=== PATIENT | female | born 1960 | race Caucasian/White ===

== ENCOUNTER 2018-04-26 15:04 | Observation (INO) | payer MEDICARE, MEDICAID ==
[2018-04-26 16:10] LABS: #Eosinphils 0.1 thou/uL (0.0-0.7); #Lymphocytes 2.7 thou/uL (1.20-3.40); #Monocytes 0.5 thou/uL (0.11-0.59); #Neutrophils 4.5 thou/uL (1.40-6.50); %Basophils 0.4 % (0.0-1.0); %Eosinophils 1.2 % (0.0-10.0); %Lymphocytes 34.1 % (21.0-51.0); %Monocytes 6.7 % (0.0-10.0); %Neutrophils 57.6 % (42.0-75.0); Hemoglobin 10.5 g/dL (12.0-16.0); Mean Corpuscular HGB CONC 30.9 g/dL (32.0-36.0); Mean Corpuscular Hemoglobin 24.4 pg (27.0-31.0); Mean Corpuscular Volume 78.8 fL (78.0-98.0); Mean Platelet Volume 6.6 fL (7.4-10.4); Platelet Count 431 thou/uL (130-400); RBC Distribution Width 16.3 % (11.5-14.5); Red Blood Cell (RBC) Count 4.32 mill/uL (4.20-5.40); White Blood Cell (WBC) Count 7.9 thou/uL (4.8-10.8)
--- NOTE | 2018-04-26 16:20 | RAD ---
CHEST 1 VIEW: Date: 04/26/18 INDICATION: Chest pain. COMPARISON: None. FINDINGS: Left costophrenic angle is excluded. No definite consolidation is evident. There is mild cardiomegaly . There is a dual lead pacemaker in place. Pulmonary vasculature is within normal limits. No acute os seous abnormality is evident. IMPRESSION: No definite acute cardiopulmonary abnormality. Mild cardiomegaly. POS: [facility]
[2018-04-26 16:33] LABS: ALT (SGPT) 16 U/L (8-55); AST (SGOT) 12 U/L (5-34); Albumin 3.9 g/dL (3.5-5.0); Alkaline Phosphatase 138 U/L (40-150); Anion Gap 15 mmol/L (10-20); BUN (Urea Nitrogen) 17 mg/dL (9.8-20.1); Bilirubin, Total 0.2 mg/dL (0.2-1.2); Calc. Creatinine Clearance 0 mL/min (70-130); Calcium 9.4 mg/dL (7.8-10.44); Carbon Dioxide 23 mmol/L (22-29); Chloride 102 mmol/L (98-107); Estimated GFR-MDRD 48; Globulin 2.9 g/dL (2.4-3.5); Glucose 93 mg/dL (70-105); Lipase 45 U/L (8-78); Potassium 3.2 mmol/L (3.5-5.1); Protein, Total 6.8 g/dL (6.0-8.3); Sodium 137 mmol/L (136-145)
[2018-04-26] MEDS ORDERED: Potassium Chloride 20 MEQ TAB ONE (16:50)
--- NOTE | 2018-04-26 16:53 | PDOC.FPRHP ---
- History of Present Illness Chief Complaint: chest pain History of Present Illness: 57 yo F with hx of cardiac stent, pacemaker, htn, and hld comes in for chest pain. Patient comes in for chest pain which started 0230 today. Pain is in the center of her chest, described as crushing and rated at 6/10. No radiation but has had palpitations. Had nitro, this did not help make it any better. Made worse with movement. No pain with deep breath. States she has had a chronic cough for 6 months 2/2 CHF. States she had a stress test in October but does not know the results. Stent was placed October 2017 at [facility] in [place], [place]. ED Course: Potassium 40 mEQ Asa 81mg - Allergies/Adverse Reactions Allergies Allergy/AdvReac Type Severity Reaction Status Date / Time Penicillins Allergy Verified 04/26/18 17:05 povidone-iodine Allergy Verified 04/26/18 17:05 [From Betadine] soap [From Betadine] Allergy Verified 04/26/18 17:05 Sulfa (Sulfonamide Allergy Verified 04/26/18 17:05 Antibiotics) tetracycline Allergy Verified 04/26/18 17:05 - Home Medications Medication Instructions Recorded Confirmed Type Alendronate Sodium [Fosamax] 70 mg PO Q7D 04/26/18 04/26/18 History Amiodarone [Cordarone] 200 mg PO DAILY 04/26/18 04/26/18 History Amlodipine [Norvasc] 5 mg PO DAILY 04/26/18 04/26/18 History Aspirin [Aspir-Low] 81 mg PO DAILY 04/26/18 04/26/18 History Atorvastatin Calcium 40 mg PO HS 04/26/18 04/26/18 History Clopidogrel Bisulfate [Clopidogrel] 75 mg PO DAILY 04/26/18 04/26/18 History Diltiazem HCl [Diltiazem 24Hr ER] 360 mg PO DAILY 04/26/18 04/26/18 History Furosemide 40 mg PO DAILY 04/26/18 04/26/18 History Levothyroxine Sodium [Levoxyl] 100 mcg PO DAILY 04/26/18 04/26/18 History Lisinopril 40 mg PO DAILY 04/26/18 04/26/18 History Metoclopramide HCl [Reglan] 1 tab PO HS 04/26/18 04/26/18 History Metoprolol Succinate [Toprol Xl] 200 mg PO DAILY 04/26/18 04/26/18 History Omeprazole 40 mg PO DAILY 04/26/18 04/26/18 History Temazepam 30 mg PO HS PRN 04/26/18 04/26/18 History buPROPion [Wellbutrin] 75 mg PO BID 04/26/18 04/26/18 History clonazePAM [Clonazepam] 1 mg PO BID PRN 04/26/18 04/26/18 History - History PMHx: CHF, hypothyroidism, HLD, HTN, intermittent a fib PSHx: stent x1, pacemaker, rt ankle reconstruction, right ureter reconstruction , hyst, appendectomy FHx: DM, HTN Social: 10 pack-year smoking hx, quit smoking 2 years ago at time of pacemaker, alcohol, or drugs - Review of Systems General: denies: fever/chills, night sweats, fatigue Eyes: denies: vision changes ENT: denies: nasal congestion, rhinorrhea Respiratory: denies: cough, congestion, shortness of breath Cardiovascular: reports: chest pain, palpitation, orthopnea Gastrointestinal: reports: nausea. denies: vomiting, diarrhea, abdominal pain, GI bleeding Genitourinary: denies: dysuria, polyuria Skin: denies: rashes, itching Musculoskeletal: denies: pain, tenderness, arthritis/arthralgias Neurological: denies: numbness, weakness - Vital signs BP: 100/71 HR: 66 RR: 18 Tmax: 98.5 Pox: 97% on RA Wt: 81kg - Physical Exam Constitutional: NAD, awake, alert and oriented HEENT: normocephalic and atraumatic, PERRLA Neck: supple Heart: RRR, normal S1/S2 Lungs: CTAB, no respiratory distress, good air movement, no wheezing Abdomen: soft, non-tender, bowel sounds present Musculoskeletal: normal structure, ROM grossly normal Neurological: no focal deficit, normal sensation Skin: no rash/lesions, capillary refill <2 seconds FMR H&P: Results - Labs Result Diagrams: 04/26/18 15:59 04/26/18 15:59 Lab results: WBC 7.9 thou/uL (4.8-10.8) 04/26/18 15:59 Hgb 10.5 g/dL (12.0-16.0) L 04/26/18 15:59 Hct 34.1 % (36.0-47.0) L 04/26/18 15:59 MCV 78.8 fL (78.0-98.0) 04/26/18 15:59 Plt Count 431 thou/uL (130-400) H 04/26/18 15:59 Neutrophils % 57.6 % (42.0-75.0) 04/26/18 15:59 Sodium 137 mmol/L (136-145) 04/26/18 15:59 Potassium 3.2 mmol/L (3.5-5.1) L 04/26/18 15:59 Chloride 102 mmol/L (98-107) 04/26/18 15:59 Carbon Dioxide 23 mmol/L (22-29) 04/26/18 15:59 BUN 17 mg/dL (9.8-20.1) 04/26/18 15:59 Creatinine 1.17 mg/dL (0.6-1.1) H 04/26/18 15:59 Glucose 93 mg/dL (70-105) 04/26/18 15:59 Calcium 9.4 mg/dL (7.8-10.44) 04/26/18 15:59 Total Bilirubin 0.2 mg/dL (0.2-1.2) 04/26/18 15:59 AST 12 U/L (5-34) 04/26/18 15:59 ALT 16 U/L (8-55) 04/26/18 15:59 Alkaline Phosphatase 138 U/L (40-150) 04/26/18 15:59 B-Natriuretic Peptide 23.4 pg/mL (0-100) 04/26/18 15:59 Serum Total Protein 6.8 g/dL (6.0-8.3) 04/26/18 15:59 Albumin 3.9 g/dL (3.5-5.0) 04/26/18 15:59 Lipase 45 U/L (8-78) 04/26/18 15:59 FMR H&P: A/P - Problem List (1) Chest pain Current Visit: Yes Status: Acute Code(s): R07.9 - CHEST PAIN, UNSPECIFIED (2) CAD (coronary artery disease) Current Visit: Yes Status: Acute Code(s): I25.10 - ATHSCL HEART DISEASE OF [place] CORONARY ARTERY W/O ANG PCTRS (3) Stented coronary artery Current Visit: Yes Status: Acute (4) Atrial fibrillation Current Visit: Yes Status: Acute Code(s): I48.91 - UNSPECIFIED ATRIAL FIBRILLATION (5) Pacemaker Current Visit: Yes Status: Acute Code(s): Z95.0 - PRESENCE OF CARDIAC PACEMAKER (6) CHF (congestive heart failure) Current Visit: Yes Status: Acute Code(s): I50.9 - HEART FAILURE, UNSPECIFIED (7) Hypothyroid Current Visit: Yes Status: Acute Code(s): E03.9 - HYPOTHYROIDISM, UNSPECIFIED (8) Hypokalemia Current Visit: Yes Status: Acute Code(s): E87.6 - HYPOKALEMIA (9) HTN (hypertension) Current Visit: Yes Status: Acute Code(s): I10 - ESSENTIAL (PRIMARY) HYPERTENSION (10) HLD (hyperlipidemia) Current Visit: Yes Status: Acute Code(s): E78.5 - HYPERLIPIDEMIA, UNSPECIFIED (11) Bipolar 1 disorder Current Visit: Yes Status: Acute Code(s): F31.9 - BIPOLAR DISORDER, UNSPECIFIED - Plan 57 yo F with cardiac history presents with chest pain and is admitted for observation. Chest pain rule out - Heart score 5 - trop neg x1, will continue to trend - will request records in am and consider cardiology consult at that time - EKG from ED not best quality but did show rate controlled a fib, rate 64, t wave inversion V1-2 Hypokalemia - 3.2, received 40 meq in ED - recheck BMP in am Headache - continue home metoclopramide - tylenol prn EJ vs CKD3 - Cr 1.17, GFR 40s - unknown baseline - monitor on am bmp Anemia - Hgb 10.5, MCV 78 - no history of anemia CAD with x1 stent - on statin, clopidegrel, ASA at home Atrial fibrillation with pacemaker - currently rate controlled - continue amiodarone CHF - unknown EF - on lasix, BB, Aurelio at home - consult HF team, will need to establish with local community health coordinator HTN - reports to be on amlodipine and diltiazem, will hold for now - BP in ED 100/72 GERD - cont home omeprazole Osteoporosis - takes alendronate weekly at home Bipolar - home buproprion with benzo prn Hypothyroid - on synthroid - check TSH Diet: NPO @ midnight Ppx: lovenox Dispo: admit to telemetry for observation FMR H&P: Upper Level - Pertinent history 57 yo F coming in for Chest pain which started at 0230 this AM and has been constant. Significant history including cardiac stent in October, afib, chf, HTN, HLD, and 10 pack-year smoking hx. Her pain is made worse with movement. States she get sob when laying down. Denies cough, no sputum. Pain rated at 6/10, described as crushing, non-radiating. Pain is made worse with movement. Also complains of headache after getting nitro. - Pertinent findings General: NAD, alert and oriented x3 HEENT: PERRLA, EOMI, normal sclera, oropharynx without erythema or exudate, Neck: Supple. Full ROM. Heart/Cardiovascular System: No r/m/g. RRR. Cap refill < 3 seconds, good pulses in all extremities, no edema at lower extremities. Tender to palpation of chest Lungs/Respiratory System: clear to auscultation bilaterally. No increased work of breathing. Room air. No crackles Abdomen/Gastro-Intestinal System: non-tender, normal bowel sounds, no masses, no organomegaly Extremeties: Warm extremities. No cyanosis or edema. Neuro: No gross deficits appreciated. CN 2-12 grossly intact Psychiatry: Awake, Alert and cooperative with exam Skin/ Integumentory: No lesions, rashes, or ulcers Musculoskeletal: Full ROM, Strength 5/5 in all 4 extremities - Plan Date/Time: 04/26/18 0863 IAdama, have evaluated this patient and agree with findings/plan as outlined by general internist and physician leader resident. Pertinent changes/additions are listed here. # chest pain rule out, suspect chest wall pain - HEART: 5 - trop neg x1, will trend - T-wave inversions V1, V2 - Consider cards consult - consider stress test in AM 2/2 high risk history, mult co-morbidities - tender to palpation of chest wall - nitro PRN - asa, statin # Atrial Fibrilation, rate controlled - home amiodarone # CHF present on admission, not in exacerbation - will request records - BNP 24 - HF clinic referral - will need to establish with Cardiology outpt. # Hypokalemia - K+ in ED - re-check in AM # Headache - home reglan # HTN - hold for now # HLD - home meds # Hypothyroidsim - home meds Primary Dianetic Counselor: [facility] in [place], [place] Fluids: tko Diet: regular, npo at midnight Code: full PCP: [facility] DVT PPx: SCDs, lovenox Addendum - Attending - Attending Attestation Date/Time: 04/26/187 I personally evaluated the patient and discussed the management with Dr. Craig I agree with the History, Examination, Assessment and Plan documented above with any addition or exceptions noted below- 57 yo female with h/o HTN, HLD, CAD, CHF (unknown type), hypothyroidism who presented c/o substernal chest radiating to left shoulder that began today. Had associated SOB, nausea, and diaphoresis. Denies any vomiting or orthopnea. States the pain is similar to when she was hospitalized in October at [facility] and had stent placed. PMH /PSH/Meds/All reviewed and agree with resident's documentation. Afebrile BP 87/ 54 P62 RR18 94%RA Exam repeated by me and agree with resident's findings. Labs: WBC=7.9, H/H= 10.5/34.1, Plt = 431, Na-137, K=3.2, Co=448, CO2=23, BUN/Cr= 17/1.17, Gluc=93, GFR=48, AST/ALT=12/16, BNP=23.4, trop I<0.010 x 2, CXR- negative. A/P: 1) Chest pain - place in obs. Monitor serial cardiac enzymes. Will plan to obtain records from stent placement in October. Consider cards consult. 2) HTN- BP low currently but pt asymptomatic- will hold meds for SBP< 903) Hypothyroidism- will check TSH and continue home meds.
[2018-04-26] MEDS ORDERED: Aspirin 325 MG TAB ONE (18:05)
[2018-04-26] MEDS ORDERED: Acetaminophen 325 MG TAB PO PRN (19:49)
[2018-04-26] MEDS ORDERED: Ondansetron PF 4 MG/2 ML Vial IVP PRN (19:49)
[2018-04-26] MEDS ORDERED: Nitroglycerin 0.4 MG TAB (25 Tab Bottle) PO PRN (19:49)
[2018-04-26] MEDS ORDERED: Ondansetron ODT 4 MG TAB PO PRN (19:49)
[2018-04-26 20:00] LABS: Troponin I Less than 0.010 ng/mL (< 0.028)
[2018-04-26] MEDS: Metoclopramide 10 MG/10 ML UDCUP PO SCH (20:41)
[2018-04-26] MEDS ORDERED: clonazePAM 1 MG TAB PO PRN (22:45)
[2018-04-26] MEDS ORDERED: Alendronate Sodium 70 mg Tablet PO SCH (22:45)
[2018-04-26] MEDS ORDERED: Temazepam 15 MG CAP PO PRN (22:45)
[2018-04-26 23:13] LABS: Troponin I Less than 0.010 ng/mL (< 0.028)
[2018-04-27] MEDS ORDERED: Sodium Chloride 0.9% 500 ML IV SCH (04:45)
[2018-04-27 05:37] LABS: Anion Gap 12 mmol/L (10-20); BUN (Urea Nitrogen) 21 mg/dL (9.8-20.1); Calc. Creatinine Clearance 82 mL/min (70-130); Calcium 9.1 mg/dL (7.8-10.44); Carbon Dioxide 27 mmol/L (22-29); Chloride 106 mmol/L (98-107); Estimated GFR-MDRD 51; Glucose 98 mg/dL (70-105); Potassium 3.7 mmol/L (3.5-5.1); Sodium 141 mmol/L (136-145)
[2018-04-27] MEDS ORDERED: Levothyroxine Sodium 100 MCG TAB PO SCH (06:00)
--- NOTE | 2018-04-27 06:53 | PDOC.FM ---
- Subjective Subjective: Ms. Kelly is resting comfortably in bed, she denies continued chest pain or shortness of breath. she does report that her chest pain was similar to the [place] she had in the past. - Objective Vital Signs & Weight: Vital Signs (12 hours) Temp Pulse Resp BP Pulse Ox 04/27/18 05:22 67 18 82/46 L 04/27/18 04:20 63 18 70/40 L 94 L 04/26/18 23:20 98.7 F 65 14 83/47 L 92 L 04/26/18 19:49 94 L 04/26/18 19:41 98.4 F 62 18 87/54 L 94 L Weight Weight 90.628 kg I&O: 04/25/18 04/26/18 04/27/18 06:59 06:59 06:59 Intake Total 500 Balance 500 Result Diagrams: 04/26/18 15:59 04/27/18 05:02 Phys Exam - Physical Examination Constitutional: NAD HEENT: moist MMs Respiratory: clear to auscultation bilateral Cardiovascular: RRR, no significant murmur, no rub Gastrointestinal: soft, non-tender Musculoskeletal: no edema, pulses present Neurological: non-focal Lymphatic: no nodes Psychiatric: normal affect Skin: no rash Dx/Plan (1) Chest pain Code(s): R07.9 - CHEST PAIN, UNSPECIFIED Status: Acute (2) Atrial fibrillation Code(s): I48.91 - UNSPECIFIED ATRIAL FIBRILLATION Status: Acute (3) Bipolar 1 disorder Code(s): F31.9 - BIPOLAR DISORDER, UNSPECIFIED Status: Acute (4) CAD (coronary artery disease) Code(s): I25.10 - ATHSCL HEART DISEASE OF [place] CORONARY ARTERY W/O ANG PCTRS Status: Acute (5) CHF (congestive heart failure) Code(s): I50.9 - HEART FAILURE, UNSPECIFIED Status: Acute (6) HLD (hyperlipidemia) Code(s): E78.5 - HYPERLIPIDEMIA, UNSPECIFIED Status: Acute (7) HTN (hypertension) Code(s): I10 - ESSENTIAL (PRIMARY) HYPERTENSION Status: Acute (8) Hypokalemia Code(s): E87.6 - HYPOKALEMIA Status: Acute (9) Hypothyroid Code(s): E03.9 - HYPOTHYROIDISM, UNSPECIFIED Status: Acute - Plan Plan: Chest pain rule out - somewhat suspicious story, high risk with recent stent placement in october - trop neg x3, EKG from ED not best quality but did show rate controlled a fib, rate 64, t wave inversion V1-2 - will request records and consider cardiology consult at that time Hypokalemia - 3.2, received 40 meq in ED - monitor BMP Headache - continue home metoclopramide - tylenol prn EJ vs CKD3 - Cr 1.17, GFR 40s - unknown baseline - monitor bmp Anemia - Hgb 10.5, MCV 78 - no history of anemia, will order iron studies CAD with x1 stent - on statin, clopidegrel, ASA at home Atrial fibrillation with pacemaker - currently rate controlled - continue amiodarone, diltiazem CHF - unknown EF - on lasix, BB, Aurelio at home- hold today for low BPs and stress - consult HF team, will need to establish with local inside sales professional HTN - reports to be on amlodipine and diltiazem, will hold for now - BP in ED 100/72 GERD - cont home omeprazole Osteoporosis - takes alendronate weekly at home Bipolar - home buproprion with benzo prn Hypothyroid - on synthroid - TSH low, hold. follow up outpatient Diet: NPO for cards consult Ppx: lovenox Dispo: request records and consider cards consult for possible cath Addendum - Attending - Attending Attestation Date/Time: 04/27/18 7987 I personally evaluated the patient and discussed the management with Dr. Sampson. I agree with the History, Examination, Assessment and Plan documented above with any addition or exceptions noted below. The patient notes mild chest pain at times but it is much better than on arrival. We have requested records from outside hospital where she had her stent placed. Will consult cardiology with the chest pain similar to previous episode requiring stent. TSH is mildly decreased. Checking T4, consider decrease in thyroid dosing.
[2018-04-27] MEDS ORDERED: Non-Formulary Item 1 EACH (Omeprazole [Omeprazole] 40 MG) PO SCH (09:00)
[2018-04-27] MEDS ORDERED: Furosemide 40 MG TAB PO SCH (09:00)
[2018-04-27 09:07] LABS: Iron 20 ug/dL (50-170); Iron Binding Capacity, Total 370 mcg/dL (265-497); Transferrin, Serum 296 mg/dL (180-382)
[2018-04-27] MEDS: Metoclopramide 10 MG/10 ML UDCUP PO SCH ×2 (09:20→10:54)
[2018-04-27] MEDS: buPROPion 75 MG TAB PO SCH ×2 (09:22→20:36)
[2018-04-27] MEDS: Enoxaparin Sodium 40 MG/0.4 ML SYRINGE SC SCH (09:22)
[2018-04-27] MEDS: Aspirin 81 mg Enteric Coated Tablet PO SCH (09:22)
[2018-04-27] MEDS: Clopidogrel Bisulfate 75 MG TAB PO SCH (09:22)
[2018-04-27] MEDS: Amiodarone 200 MG TAB PO SCH (09:23)
[2018-04-27] MEDS ORDERED: Sodium Chloride 0.9% 500 ML IVPB SCH (16:30)
--- NOTE | 2018-04-27 17:01 | EKG ---
Test Reason : Blood Pressure : / mmHG Vent. Rate : 067 BPM Atrial Rate : 067 BPM P-R Int : 202 ms QRS Dur : 094 ms QT Int : 448 ms P-R-T Axes : 059 040 051 degrees QTc Int : 473 ms Normal sinus rhythm Nonspecific ST and T wave abnormality Prolonged QT Abnormal ECG When compared with ECG of 26-APR-2018 15:20, (Unconfirmed) Sinus rhythm has replaced Junctional rhythm Confirmed by DR. Gordy WALTERS ([id number]) on 04/27/2018 5:01:39 PM Referred By: CALI DICKINSON *r Confirmed By:DR. Gordy WALTERS
[2018-04-27] MEDS: Atorvastatin Calcium 40 MG TAB PO SCH (20:36)
[2018-04-27] MEDS: Metoclopramide HCl 10 MG TAB PO SCH (20:36)
--- NOTE | 2018-04-28 02:57 | CON ---
DATE OF CONSULTATION: HISTORY OF PRESENT ILLNESS: Ansley Kelly is a 57-year-old white female, who just moved here from [place]. Her cardiac history is that she had a pacemaker placed in September 2015. She also had paroxysmal atrial fibrillation, but apparently was only taking 1/2 of amiodarone daily. She continued to have episodes of atrial fibrillation up to 8 hours per day recorded on the pacemaker. She was on Xarelto at that time. In October, she started having chest discomfort and had a stent placed. Those records have been requested, however, the records from when she fractured her patella later that same month were sent, not the cardiac records. These will be re-requested. She states that at that time her amiodarone was increased to 200 mg daily. Since November, she has not had any significant atrial fibrillation. She stated that in December, she underwent a thyroid needle biopsy and Xarelto was stopped and no one ever told her to resume it and she has not resumed it, although she has continued the aspirin and Plavix. She states she has been moving some furniture. Yesterday, she had a very sharp pain on the left side of her chest that was continuous for approximately 2 hours. The pain was not pleuritic in nature. She ultimately came to the emergency room for further evaluation. Cardiac enzymes have been totally normal. PAST MEDICAL HISTORY: Hypertension, hypercholesterolemia, paroxysmal atrial fibrillation, hypothyroidism. PAST SURGICAL HISTORY: Hysterectomy, tonsillectomy, appendectomy, right ureter reconstruction, pacemaker placement. MEDICATIONS: 1. Fosamax 70 mg q.7 days. 2. Amiodarone 200 mg daily. 3. Norvasc 5 mg daily. 4. Aspirin 81 daily. 5. Atorvastatin 40 at bedtime. 6. Wellbutrin 75 b.i.d. 7. Clonazepam 1 mg b.i.d. p.r.n. 8. Plavix 75 mg daily. 9. Diltiazem 360 mg daily. 10. Furosemide 40 daily. 11. Levothyroxine 100 mcg daily. 12. Lisinopril 40 daily. 13. Reglan one tablet at bedtime. 14. Metoprolol 200 mg daily. 15. Omeprazole 40 mg daily. 16. Temazepam 30 mg at bedtime. All of her antihypertensive medications have been discontinued with the above blood pressure. ALLERGIES: TOPICAL BETADINE, PENICILLIN, SULFA, AND TETRACYCLINE. FAMILY HISTORY: Negative for coronary artery disease in the immediate family. SOCIAL HISTORY: She stopped smoking two years ago when she had her pacemaker placed. She does not drink alcohol. REVIEW OF SYSTEMS: A 10-point review of systems is otherwise unremarkable. PHYSICAL EXAMINATION: VITAL SIGNS: Blood pressure 103/59, pulse of 67. HEENT: PERRL. NECK: Supple. CHEST: Clear. CARDIAC: S1 and S2 normal without any S3, S4, or murmurs. ABDOMEN: Normal bowel sounds without tenderness or organomegaly. The abdomen is obese. EXTREMITIES: Revealed no clubbing, cyanosis, or edema. NEUROLOGIC: Grossly intact. SKIN: Warm and dry. MUSCULOSKELETAL: Examination revealed palpable left-sided chest wall pain, which seems to reproduce some of her symptoms. LABORATORY DATA: EKG revealed normal sinus rhythm with nonspecific ST-segment changes. Hemoglobin 10.5, hematocrit 34.1, white count 7900. Sodium 141, potassium 3.7, chloride 106, carbon dioxide 27, BUN 21, creatinine 1.11. Iron 20, TIBC 370. TSH is low at 0.3014. Cardiac enzymes x3 are normal. IMPRESSION: 1. Atypical chest discomfort, probably chest wall in nature with 2 hours of sharp pain with totally negative cardiac enzymes. 2. History of presumably drug-eluting stent placed in October 2017. Those records will again be requested. 3. Status post pacemaker placement. 4. Paroxysmal atrial fibrillation, although this appears to be totally suppressed since amiodarone was increased to 200 mg daily. 5. Hypertension. 6. Hyperlipidemia. 7. Former smoker. 8. Obesity. PLAN: Fasting lipid profile will be obtained. Records again will be requested since they sent records regarding a fractured patella and not her cardiac records. She will undergo adenosine Cardiolite testing. Job ID: [id number] [facility]
[2018-04-28] MEDS: Levothyroxine Sodium 75 MCG TAB PO SCH (03:47)
[2018-04-28 04:25] LABS: Cardiac Risk 4.5 (Less than 4.5)
--- NOTE | 2018-04-28 06:24 | PDOC.FM ---
- Subjective Subjective: Ms. Kelly is very concerned about her stress test today, she became very nauseous last time. Counseled that it was our along with cardiology's recommendation, explained risks and benefits. She agreed to complete the stress test at this time. - Objective Vital Signs & Weight: Vital Signs (12 hours) Temp Pulse Resp BP Pulse Ox 04/28/18 03:49 98.3 F 69 18 94/52 L 94 L 04/27/18 23:24 98.4 F 74 16 91/55 L 92 L 04/27/18 19:00 97.6 F 67 12 103/59 L 97 Weight Weight 91.354 kg I&O: 04/26/18 04/27/18 04/28/18 06:59 06:59 06:59 Intake Total 500 2700 Balance 500 2700 Result Diagrams: 04/28/18 03:55 04/28/18 03:55 Phys Exam - Physical Examination Constitutional: NAD HEENT: moist MMs Neck: no JVD Respiratory: clear to auscultation bilateral Cardiovascular: RRR, no significant murmur Gastrointestinal: soft, non-tender Musculoskeletal: no edema Neurological: moves all 4 limbs Deviation from normal: flat affect Skin: no rash Dx/Plan (1) Chest pain Code(s): R07.9 - CHEST PAIN, UNSPECIFIED Status: Acute (2) Atrial fibrillation Code(s): I48.91 - UNSPECIFIED ATRIAL FIBRILLATION Status: Acute (3) Bipolar 1 disorder Code(s): F31.9 - BIPOLAR DISORDER, UNSPECIFIED Status: Acute (4) CAD (coronary artery disease) Code(s): I25.10 - ATHSCL HEART DISEASE OF [place] CORONARY ARTERY W/O ANG PCTRS Status: Acute (5) CHF (congestive heart failure) Code(s): I50.9 - HEART FAILURE, UNSPECIFIED Status: Acute (6) HLD (hyperlipidemia) Code(s): E78.5 - HYPERLIPIDEMIA, UNSPECIFIED Status: Acute (7) HTN (hypertension) Code(s): I10 - ESSENTIAL (PRIMARY) HYPERTENSION Status: Acute (8) Hypokalemia Code(s): E87.6 - HYPOKALEMIA Status: Acute (9) Hypothyroid Code(s): E03.9 - HYPOTHYROIDISM, UNSPECIFIED Status: Acute - Plan Plan: Chest pain rule out - somewhat suspicious story, high risk with recent stent placement in october - trop neg x3, EKG from ED not best quality but did show rate controlled a fib, rate 64, t wave inversion V1-2 - will request records from outside hospital - cardiology consulted, recommend adenosine stress today Hypokalemia - 3.2, received 40 meq in ED - monitor BMP Headache - continue home metoclopramide - tylenol prn EJ vs CKD3 - Cr 1.17, GFR 40s - unknown baseline - monitor bmp Anemia - Hgb 10.5, MCV 78 - iron deficiency - replenish iron, monitor CBC CAD with x1 stent - on statin, clopidegrel, ASA at home Atrial fibrillation with pacemaker - currently rate controlled - continue amiodarone, hold dilt for now with low BPs CHF - unknown EF - on lasix, BB, Aurelio at home- hold today for low BPs and stress - consult HF team, will need to establish with local media planner / buyer HTN - reports to be on amlodipine and diltiazem, will hold for now - BP in ED 100/72 GERD - cont home omeprazole Osteoporosis - takes alendronate weekly at home Bipolar - home buproprion with benzo prn Hypothyroid - on synthroid - TSH low, hold. follow up outpatient code: full Ppx: lovenox Dispo: stress today, possible DC later with negative results. Addendum - Attending - Attending Attestation Date/Time: 04/28/18 1009 I personally evaluated the patient and discussed the management with Dr. Sampson. I agree with the History, Examination, Assessment and Plan documented above with any addition or exceptions noted below. The patient was seen by cardiology who recommended stress test. Pt is hesitant to do the stress because previous chemical stress test caused nausea. We discussed the risks of not getting a stress to check out this chest pain and I believe she will go through with the testing.
[2018-04-28 07:48] LABS: #Eosinphils 0.1 thou/uL (0.0-0.7); #Lymphocytes 2.1 thou/uL (1.20-3.40); #Monocytes 0.5 thou/uL (0.11-0.59); #Neutrophils 4.1 thou/uL (1.40-6.50); %Basophils 0.6 % (0.0-1.0); %Lymphocytes 30.7 % (21.0-51.0); %Monocytes 6.7 % (0.0-10.0); Hemoglobin 8.8 g/dL (12.0-16.0); Mean Corpuscular Hemoglobin 24.2 pg (27.0-31.0); Mean Corpuscular Volume 78.1 fL (78.0-98.0); Platelet Count 347 thou/uL (130-400); RBC Distribution Width 16.2 % (11.5-14.5); Red Blood Cell (RBC) Count 3.64 mill/uL (4.20-5.40); White Blood Cell (WBC) Count 6.8 thou/uL (4.8-10.8)
[2018-04-28] MEDS: buPROPion 75 MG TAB PO SCH ×2 (08:07→20:23)
[2018-04-28 08:11] LABS: ALT (SGPT) 13 U/L (8-55); AST (SGOT) 10 U/L (5-34); Albumin 3.4 g/dL (3.5-5.0); Alkaline Phosphatase 109 U/L (40-150); Anion Gap 13 mmol/L (10-20); BUN (Urea Nitrogen) 14 mg/dL (9.8-20.1); Bilirubin, Total 0.2 mg/dL (0.2-1.2); Calc. Creatinine Clearance 87 mL/min (70-130); Calcium 8.8 mg/dL (7.8-10.44); Carbon Dioxide 26 mmol/L (22-29); Chloride 106 mmol/L (98-107); Estimated GFR-MDRD 54; Globulin 2.4 g/dL (2.4-3.5); Glucose 99 mg/dL (70-105); Potassium 3.6 mmol/L (3.5-5.1); Protein, Total 5.8 g/dL (6.0-8.3); Sodium 141 mmol/L (136-145)
[2018-04-28] MEDS ORDERED: ADENOSINE 60 MG/20 ML VIAL ONE (10:04)
[2018-04-28] MEDS: Aspirin 81 mg Enteric Coated Tablet PO SCH (10:10)
[2018-04-28] MEDS: Clopidogrel Bisulfate 75 MG TAB PO SCH (10:10)
[2018-04-28] MEDS: Amiodarone 200 MG TAB PO SCH (10:10)
[2018-04-28] MEDS: Iron Polysaccharides Complex 150 MG CAP PO SCH (10:13)
[2018-04-28] MEDS: Enoxaparin Sodium 40 MG/0.4 ML SYRINGE SC SCH (10:13)
[2018-04-28] MEDS: Metoclopramide HCl 10 MG TAB PO SCH (20:23)
[2018-04-28] MEDS: Atorvastatin Calcium 40 MG TAB PO SCH (20:23)
--- NOTE | 2018-04-28 21:59 | EKG ---
Test Reason : CHEST PAIN Blood Pressure : / mmHG Vent. Rate : 064 BPM Atrial Rate : 065 BPM P-R Int : 000 ms QRS Dur : 090 ms QT Int : 442 ms P-R-T Axes : 000 002 012 degrees QTc Int : 455 ms Poor data quality, interpretation may be adversely affected Junctional rhythm Nonspecific ST and T wave abnormality Abnormal ECG Confirmed by SIMON JUNE DO ([id number]), publications editor DERIC ADORNO ([id number]) on 04/28/2018 9:59:01 PM Referred By: SLADE Confirmed By:SIMON JUNE DO
[2018-04-29] MEDS: Levothyroxine Sodium 75 MCG TAB PO SCH (03:39)
[2018-04-29 05:09] LABS: #Eosinphils 0.1 thou/uL (0.0-0.7); #Lymphocytes 1.8 thou/uL (1.20-3.40); #Monocytes 0.5 thou/uL (0.11-0.59); #Neutrophils 4.7 thou/uL (1.40-6.50); %Basophils 0.2 % (0.0-1.0); %Eosinophils 1.2 % (0.0-10.0); %Lymphocytes 25.6 % (21.0-51.0); %Monocytes 6.6 % (0.0-10.0); %Neutrophils 66.4 % (42.0-75.0); Hemoglobin 8.8 g/dL (12.0-16.0); Mean Corpuscular HGB CONC 31.3 g/dL (32.0-36.0); Mean Corpuscular Hemoglobin 24.6 pg (27.0-31.0); Mean Corpuscular Volume 78.6 fL (78.0-98.0); Mean Platelet Volume 6.8 fL (7.4-10.4); Platelet Count 326 thou/uL (130-400); RBC Distribution Width 15.8 % (11.5-14.5); Red Blood Cell (RBC) Count 3.58 mill/uL (4.20-5.40)
[2018-04-29 05:29] LABS: ALT (SGPT) 12 U/L (8-55); AST (SGOT) 9 U/L (5-34); Albumin 3.4 g/dL (3.5-5.0); Alkaline Phosphatase 107 U/L (40-150); Anion Gap 13 mmol/L (10-20); BUN (Urea Nitrogen) 14 mg/dL (9.8-20.1); Bilirubin, Total 0.2 mg/dL (0.2-1.2); Calc. Creatinine Clearance 112 mL/min (70-130); Calcium 8.7 mg/dL (7.8-10.44); Carbon Dioxide 24 mmol/L (22-29); Chloride 107 mmol/L (98-107); Estimated GFR-MDRD 72; Globulin 2.4 g/dL (2.4-3.5); Glucose 95 mg/dL (70-105); Potassium 3.9 mmol/L (3.5-5.1); Protein, Total 5.8 g/dL (6.0-8.3); Sodium 140 mmol/L (136-145)
--- NOTE | 2018-04-29 06:30 | PDOC.FM ---
- Subjective Subjective: Ms. Kelly is resting comfortably in bed, she denies any more chest pain or shortness of breath. tolerated part one of her stress test yesterday - Objective Vital Signs & Weight: Vital Signs (12 hours) Temp Pulse Resp BP Pulse Ox 04/29/18 03:37 98.3 F 71 18 106/58 L 97 04/28/18 23:29 97.9 F 67 15 108/60 94 L 04/28/18 19:11 98.2 F 71 15 99/57 L 94 L Weight Weight 91.172 kg I&O: 04/27/18 04/28/18 04/29/18 06:59 06:59 06:59 Intake Total 500 2700 1050 Balance 500 2700 1050 Result Diagrams: 04/29/18 04:44 04/29/18 04:44 Phys Exam - Physical Examination Constitutional: NAD HEENT: moist MMs Neck: no JVD Respiratory: clear to auscultation bilateral Cardiovascular: RRR Gastrointestinal: no distention Musculoskeletal: no edema, pulses present Neurological: moves all 4 limbs Psychiatric: normal affect Skin: no rash Dx/Plan (1) Chest pain Code(s): R07.9 - CHEST PAIN, UNSPECIFIED Status: Acute (2) Atrial fibrillation Code(s): I48.91 - UNSPECIFIED ATRIAL FIBRILLATION Status: Acute (3) Bipolar 1 disorder Code(s): F31.9 - BIPOLAR DISORDER, UNSPECIFIED Status: Acute (4) CAD (coronary artery disease) Code(s): I25.10 - ATHSCL HEART DISEASE OF [place] CORONARY ARTERY W/O ANG PCTRS Status: Acute (5) CHF (congestive heart failure) Code(s): I50.9 - HEART FAILURE, UNSPECIFIED Status: Acute (6) HLD (hyperlipidemia) Code(s): E78.5 - HYPERLIPIDEMIA, UNSPECIFIED Status: Acute (7) HTN (hypertension) Code(s): I10 - ESSENTIAL (PRIMARY) HYPERTENSION Status: Acute (8) Hypokalemia Code(s): E87.6 - HYPOKALEMIA Status: Acute (9) Hypothyroid Code(s): E03.9 - HYPOTHYROIDISM, UNSPECIFIED Status: Acute - Plan Plan: Chest pain rule out - somewhat suspicious story, high risk with recent stent placement in october - trop neg x3, EKG from ED not best quality but did show rate controlled a fib, rate 64, t wave inversion V1-2 - will request records from outside hospital - cardiology consulted, part two of stress today Hypokalemia - 3.2, received 40 meq in ED - monitor BMP Headache - continue home metoclopramide - tylenol prn EJ vs CKD3 - Cr 1.17, GFR 40s - unknown baseline - monitor bmp Anemia - Hgb 8.8, MCV 78 - iron deficiency - replenish iron, monitor CBC CAD with x1 stent - on statin, clopidegrel, ASA at home Atrial fibrillation with pacemaker - currently rate controlled - continue amiodarone, hold dilt for now with low BPs CHF - Echo reveals LVEF of 55-60% - on lasix, BB, Aurelio at home. resume BB - consult HF team, will need to establish with local sales assistant HTN - reports to be on amlodipine, resume and diltiazem, will hold for now - BP continue to be in low normals, monitor and give home meds as needed GERD - cont home omeprazole Osteoporosis - takes alendronate weekly at home Bipolar - home buproprion with benzo prn Hypothyroid - on synthroid - TSH low, reduced dose. follow up outpatient code: full Ppx: lovenox Dispo: stress today, possible DC later with negative results. Addendum - Attending - Attending Attestation Date/Time: 04/29/18 1202 I personally evaluated the patient and discussed the management with Dr. Samposn. I agree with the History, Examination, Assessment and Plan documented above with any addition or exceptions noted below. The patient will have the second part of her stress test today and if negative can dc home. Reviewed echo.
[2018-04-29] MEDS: Iron Polysaccharides Complex 150 MG CAP PO SCH (08:33)
[2018-04-29] MEDS: Enoxaparin Sodium 40 MG/0.4 ML SYRINGE SC SCH (08:33)
[2018-04-29] MEDS: Amiodarone 200 MG TAB PO SCH (08:34)
[2018-04-29] MEDS: buPROPion 75 MG TAB PO SCH (08:34)
[2018-04-29] MEDS: Clopidogrel Bisulfate 75 MG TAB PO SCH (08:34)
[2018-04-29] MEDS: Aspirin 81 mg Enteric Coated Tablet PO SCH (08:34)
--- NOTE | 2018-04-29 10:18 | NM ---
MYOCARDIAL PERFUSION SCAN: The patient was given 32 mCi of Technetium sestamibi for resting imaging and 27 mCi for stress imagin g. The patient was stressed according to adenosine protocol. INDICATION: Chest pain. FINDINGS: The left ventricle was imaged with SPECT imaging. CT attenuation images obtained. Normal activity is seen throughout the left ventricle on stress and rest images. No evidence of reve rsible ischemia. The wall motion appears normal. Ejection fraction is recorded at 73%. IMPRESSION: No evidence of reversible ischemia. POS: PEGGY
[2018-04-29 16:23] VITALS: BP 125/76; TEMP 99.2
--- NOTE | 2018-04-29 22:59 | DIS ---
DATE OF ADMISSION: 04/26/2018 DATE OF DISCHARGE: 04/29/2018 ADMITTING ATTENDING: Lida Barnett MD DISCHARGE ATTENDING: Genevieve Jack MD RESIDENT: Yony Sampson DO CONSULTATIONS: Cardiology, Dr. Migule Angel White. PROCEDURES: Nuclear medicine stress test. IMPRESSION: No evidence of reversible ischemia. IMAGING: Echocardiogram significant for left ejection fraction visually estimated at 55% to 60% with [id number] mitral and tricuspid regurgitation. PRIMARY DIAGNOSIS: Atypical chest pain in the setting of history of coronary artery disease. SECONDARY DIAGNOSES: 1. Hypokalemia. 2. Acute kidney injury versus chronic kidney disease stage 3. 3. Anemia. 4. Coronary artery disease. 5. Atrial fibrillation with pacemaker. 6. Congestive heart failure with preserved ejection fraction. 7. Hypertension. 8. Gastroesophageal reflux disease. 9. Osteoporosis. 10. Bipolar. 11. Hypothyroidism. DISCHARGE MEDICATIONS: 1. Fosamax 70 mg p.o. q.7 days. 2. Clopidogrel 75 mg p.o. daily. 3. Reglan 1 tab p.o. at bedtime. 4. Amiodarone 200 mg p.o. daily. 5. Atorvastatin 40 mg p.o. at bedtime. 6. Wellbutrin 75 mg p.o. b.i.d. 7. Temazepam 30 mg p.o. at bedtime p.r.n. 8. Omeprazole 40 mg p.o. daily. 9. Aspirin 81 mg p.o. daily. 10. Iron polysaccharide complex 150 mg p.o. q.a.m. with meals. 11. Synthroid 75 mcg p.o. . DISCONTINUED MEDICATIONS: 1. Lisinopril 40 mg p.o. daily. 2. Furosemide 40 mg p.o. daily. 3. Levothyroxine 100 mcg p.o. daily. 4. Amlodipine 5 mg p.o. daily. 5. Metoprolol 200 mg p.o. daily. 6. Clonazepam 1 mg p.o. b.i.d. p.r.n. 7. Diltiazem 260 mg p.o. daily. HISTORY OF PRESENT ILLNESS/HOSPITAL COURSE: Ms. Kelly is a 57-year-old female who has a history significant for cardiac stent with pacemaker placement secondary to a reported diagnosis of CHF and atrial fibrillation, comes in initially to the emergency department with chest pain similar to the pain in the past, where she had a stent placed. She reports no radiation, but had palpitations at that time. Nitroglycerin did not improve the pain. The pain was made worse with movement. She denies dyspnea on exertion. She reports chronic cough for 6 months. She also reports that she had a stress test in October, does not remember the results. Her stress test and stent were placed in an outside hospital. Records were requested and received. In the emergency room, she got 81 mg of aspirin and 40 mEq of potassium secondary to hypokalemia. The patient was admitted to observation on telemetry. Cardiac monitors were placed and patient remained in normal sinus rhythm throughout her time. She consistently had blood pressures in the 80s and 90s for systolic and in the 60s and 70s for diastolic. Her blood pressure medicines were held with rate and rhythm controlling medications continued. Before discharge, the patient's blood pressure improved to 100s and 110s for systolic and in the 80s and 90s for diastolic. Recommended to continue to hold blood pressure medications including the amlodipine, lisinopril, furosemide, and diltiazem. For the patient's chest pain, EKG was within normal limits without ST-elevation. Nuclear medicine stress test was performed and was negative for reversible ischemia. Cardiology consulted and reviewed stress and echocardiogram, deemed appropriate for outpatient followup and management. The patient was informed that blood pressure medications and further cardiac workup may be needed outpatient and that she would follow up with Dr. White and [facility] physicians within 7 days. DISPOSITION: Stable. DISCHARGE INSTRUCTIONS: 1. Location: Home. 2. Diet: Heart healthy, low-sodium. 3. Activity: As tolerated. 4. Followup: Follow up with [facility] physicians in 7 days to establish as primary care and Dr. Miguel Angel White in 3 to 4 weeks to establish with Cardiology as the patient is moving to the area. Job ID: [id number]
--- NOTE | 2018-04-30 13:08 | STRESS ---
Acquisition Time: 2018-04-28 08:54:42 Total Exercise Time: 00:04:00 Test Indications: CHEST PAIN Medications: Protocol: ADENOSINE Max HR: 085 BPM 51% of Pred: 165 BPM Max BP: 118/062 mmHG Max Work Load: 1.0 METS RESTING ECG: NORMAL SINUS RHYTHM WITH NON SPECIFIC T WAVES; LOW VOLTAGE SYMPTOMS: NAUSEA NORMAL BP RESPONSE ECTOPY: NONE ECG STRESS: NO SIGNIFICANT CHANGES INTERPRETATION: AWAIT NUCLEAR IMAGES FOR DEFINITIVE DIAGNOSIS Confirmed by JAYDA LEE ([id number]), commercial production editor JUSTIN STOUT ([id number]) on 04/30/2018 1:08:37 PM Referred By: MD LEE Confirmed By:JAYDA LEE
== END 2018-04-29 18:04 | disposition home or self-care (01) ==
LOC: ERS 15:04 → ERHOLD 17:30 → 2SW 19:26
PROVIDERS: ADMIT Student in an Organized Health Care Education/Training Program; ATTEND Student in an Organized Health Care Education/Training Program
DX: R07.89 Other chest pain (principal); I25.10 Atherosclerotic heart disease of native coronary artery without angina pectoris; E87.6 Hypokalemia; D64.9 Anemia, unspecified; I11.0 Hypertensive heart disease with heart failure; I50.30 Unspecified diastolic (congestive) heart failure; I48.0 Paroxysmal atrial fibrillation; K21.9 Gastro-esophageal reflux disease without esophagitis; M81.0 Age-related osteoporosis without current pathological fracture; F31.9 Bipolar disorder, unspecified; E03.9 Hypothyroidism, unspecified; I08.1 Rheumatic disorders of both mitral and tricuspid valves; E78.00 Pure hypercholesterolemia, unspecified; E66.9 Obesity, unspecified; Z68.34 Body mass index [BMI] 34.0-34.9, adult; Z79.02 Long term (current) use of antithrombotics/antiplatelets; Z79.82 Long term (current) use of aspirin; Z79.83 Long term (current) use of bisphosphonates; Z79.899 Other long term (current) drug therapy; Z88.0 Allergy status to penicillin; Z88.1 Allergy status to other antibiotic agents; Z88.2 Allergy status to sulfonamides; Z88.8 Allergy status to other drugs, medicaments and biological substances; Z95.5 Presence of coronary angioplasty implant and graft; Z95.0 Presence of cardiac pacemaker; Z87.891 Personal history of nicotine dependence
CPT/HCPCS: 71045; 78452; 80048; 80053 ×3; 80061; 82728; 83540; 83690; 83880; 84439; 84443; 84484 ×2; 85025 ×3; 93005 ×2; 93017; 93306; 94760 ×3; 96372 ×3; 99285; A9500; G0378 ×5; 36415; 83550; 84466; 93010; J0153; J1650; Q0162

== ENCOUNTER 2018-07-12 12:43 | Emergency (ER) | payer MEDICARE, MEDICAID ==
[2018-07-12 13:08] LABS: #Basophils 0.1 thou/uL (0.0-0.2); #Lymphocytes 2.5 thou/uL (1.20-3.40); #Monocytes 0.7 thou/uL (0.11-0.59); #Neutrophils 8.4 thou/uL (1.40-6.50); %Basophils 0.6 % (0.0-1.0); %Eosinophils 0.3 % (0.0-10.0); %Lymphocytes 21.2 % (21.0-51.0); %Monocytes 6.1 % (0.0-10.0); %Neutrophils 71.7 % (42.0-75.0); Hemoglobin 11.9 g/dL (12.0-16.0); Mean Corpuscular HGB CONC 32.2 g/dL (32.0-36.0); Mean Corpuscular Hemoglobin 25.7 pg (27.0-31.0); Mean Corpuscular Volume 79.9 fL (78.0-98.0); Mean Platelet Volume 6.6 fL (7.4-10.4); Platelet Count 515 thou/uL (130-400); RBC Distribution Width 15.5 % (11.5-14.5); Red Blood Cell (RBC) Count 4.64 mill/uL (4.20-5.40); White Blood Cell (WBC) Count 11.8 thou/uL (4.8-10.8)
[2018-07-12 13:32] LABS: ALT (SGPT) 16 U/L (8-55); AST (SGOT) 13 U/L (5-34); Acetaminophen Less than 6.0 mcg/mL (10.0-30.0); Albumin 4.4 g/dL (3.5-5.0); Alcohol Less than 10 mg/dL (Less than 10); Alkaline Phosphatase 143 U/L (40-150); Anion Gap 17 mmol/L (10-20); BUN (Urea Nitrogen) 13 mg/dL (9.8-20.1); Bilirubin, Total 0.6 mg/dL (0.2-1.2); Calc. Creatinine Clearance 0 mL/min (70-130); Calcium 10.1 mg/dL (7.8-10.44); Carbon Dioxide 26 mmol/L (22-29); Chloride 99 mmol/L (98-107); Estimated GFR-MDRD 54; Globulin 3.6 g/dL (2.4-3.5); Glucose 100 mg/dL (70-105); Salicylate Less than 8.0 mg/dL (15.0-30.0); Sodium 139 mmol/L (136-145)
[2018-07-12 13:37] LABS: Potassium 2.9 mmol/L (3.5-5.1)
[2018-07-12 14:54] LABS: Bilirubin Negative (Negative); Blood, Urine Negative (Negative); Clarity CLOUDY (Clear); Glucose, Urine (Dipstick) Negative (Negative); Leukocyte Trace (Negative); Nitrite Negative (Negative); Protein, Urine (Dipstick) Negative (Neg-Trace); Specific Gravity, Urine 1.008 (1.002-1.036); pH, Urine 6.5 (5.0-9.0)
[2018-07-12 14:55] LABS: Bacteria/HPF Rare-Few HPF (None Seen); Hyaline Casts/LPF 7-10 HYALINE CAST LPF (0-3 Hyaline); RBC/HPF 0-3 HPF (0-3)
[2018-07-12 14:57] LABS: Pathc Cast-AUWi Flag 2.99 (0-2.49)
[2018-07-12 15:01] LABS: Manual Microscopic Reviewed? No Path Casts Seen
[2018-07-12 15:02] LABS: Cocaine Metabolite Screen Not Detected (NotDetected); Medtox Reader # READER 4; Phencyclidine (PCP) Not Detected (NotDetected); THC/Cannabinoid Screen Not Detected (NotDetected)
[2018-07-12 15:03] LABS: Amphetamine Not Detected (NotDetected); Barbiturates Screen Not Detected (NotDetected); Benzodiazepine Screen Detected (NotDetected); Medtox Control Line Valid? VALID (VALID); Methadone Not Detected (NotDetected); Methamphetamine Not Detected (NotDetected); Opiate Screen Not Detected (NotDetected); Oxycodone Screen Not Detected (NotDetected); Tricyclic Screen Not Detected (NotDetected)
[2018-07-12 17:14] LABS: Potassium 3.7 mmol/L (3.5-5.1)
[2018-07-12] MEDS ORDERED: Temazepam 15 MG CAP PO SCH (22:45)
[2018-07-12] MEDS ORDERED: clonazePAM 1 MG TAB PO SCH (22:45)
[2018-07-12] MEDS ORDERED: Metoclopramide HCl 10 MG TAB PO SCH (22:45)
[2018-07-12] MEDS ORDERED: Amiodarone 200 MG TAB PO SCH (22:45)
[2018-07-12] MEDS ORDERED: Atorvastatin Calcium 40 MG TAB PO SCH (22:45)
[2018-07-12] MEDS ORDERED: buPROPion 75 MG TAB PO SCH (22:45)
[2018-07-12] MEDS ORDERED: clonazePAM 1 MG TAB ONE (22:59)
== END 2018-07-12 23:41 ==
LOC: ERS 12:43
DX: R45.851 Suicidal ideations (principal); I48.91 Unspecified atrial fibrillation; E03.9 Hypothyroidism, unspecified; E78.5 Hyperlipidemia, unspecified; I11.0 Hypertensive heart disease with heart failure; I50.9 Heart failure, unspecified; F31.9 Bipolar disorder, unspecified; F41.9 Anxiety disorder, unspecified; F17.210 Nicotine dependence, cigarettes, uncomplicated; Z79.899 Other long term (current) drug therapy; Z79.51 Long term (current) use of inhaled steroids; Z79.82 Long term (current) use of aspirin
CPT/HCPCS: 36415; 80053; 80306; 80307; 81003; 81015; 82550; 84443; 85025; 99285; J8597

== ENCOUNTER 2018-09-21 12:52 | Observation (INO) | payer MEDICARE, OTHER ==
[~2018-09-21 12:52] MED LIST: ISOVUE-370 76%-LOCM 1 ML ONE
[2018-09-21] MEDS ORDERED: Morphine 4 MG/ML VIAL ONE ×2 (14:06→17:16)
--- NOTE | 2018-09-21 15:09 | CT ---
CT Neck Soft Tissue W Con History: [Neck abscess.] Comparison: None. Findings: There is asymmetric edema surrounding the left 70 root gland which is edematous. Adjacent s ubmandibular adenopathy. There is abnormal collection of fluid with the left submandibular duct. No stone is seen within the d uct. The duct abuts a subperiosteal abscess of the left mandible at the level of the medial cortex of the third molar which is a large wound defect. There is cortical breakthrough along the medial cor olivia. The abscess measures 0.5 x 0.8 x 1.3 cm. Reactive left anterior cervical adenopathy. Large disc osteophyte complex at C5/C6 causing bilateral neural foraminal narrowing. Impression: Lingual left-sided periodontal abscess of the left mandibular angle at the level of the t hird mandibular root which is a large cavity. There is reactive edema within the left submandibular duct with retrograde extension into the submandibular gland which is edematous and inflamed.
[2018-09-21] MEDS ORDERED: Clindamycin/D5W 900 mg/50 ml Premix Bag ONE (17:16)
[2018-09-21 17:45] LABS: #Basophils 0.1 thou/uL (0.0-0.2); #Eosinphils 0.1 thou/uL (0.0-0.7); #Monocytes 0.9 thou/uL (0.11-0.59); #Neutrophils 14.2 thou/uL (1.40-6.50); %Basophils 0.3 % (0.0-1.0); %Eosinophils 0.6 % (0.0-10.0); %Lymphocytes 11.8 % (21.0-51.0); %Monocytes 5.2 % (0.0-10.0); %Neutrophils 82.1 % (42.0-75.0); Hemoglobin 11.9 g/dL (12.0-16.0); Mean Corpuscular HGB CONC 32.4 g/dL (32.0-36.0); Mean Corpuscular Hemoglobin 26.4 pg (27.0-31.0); Mean Corpuscular Volume 81.6 fL (78.0-98.0); Mean Platelet Volume 6.4 fL (7.4-10.4); Platelet Count 500 thou/uL (130-400); RBC Distribution Width 14.5 % (11.5-14.5); Red Blood Cell (RBC) Count 4.49 mill/uL (4.20-5.40); White Blood Cell (WBC) Count 17.2 thou/uL (4.8-10.8)
[2018-09-21 18:04] LABS: Anion Gap 16 mmol/L (10-20); BUN (Urea Nitrogen) 8 mg/dL (9.8-20.1); Calc. Creatinine Clearance 0 mL/min (70-130); Calcium 9.5 mg/dL (7.8-10.44); Carbon Dioxide 24 mmol/L (22-29); Chloride 102 mmol/L (98-107); Estimated GFR-MDRD 66; Glucose 102 mg/dL (70-105); Potassium 3.3 mmol/L (3.5-5.1); Sodium 139 mmol/L (136-145)
[2018-09-21] MEDS ORDERED: Dexamethasone 10 MG/ML VIAL ONE (18:42)
[2018-09-21] MEDS ORDERED: Acetaminophen 500 MG TAB ONE (19:08)
[2018-09-21] MEDS ORDERED: HYDROcodone/Acetaminophen 5/325 mg Tablet PO PRN ×2 (19:28)
[2018-09-21] MEDS ORDERED: Acetaminophen 325 MG TAB PO PRN (19:28)
[2018-09-21] MEDS ORDERED: Senokot S 8.6-50 MG TAB PO PRN (19:28)
[2018-09-21] MEDS ORDERED: Potassium Chloride 20 MEQ in Premix Bag 1 BAG IVPB SCH (19:45)
[2018-09-21] MEDS: Sodium Chloride 0.9% 1,000 ML IV SCH (20:06)
[2018-09-21] MEDS: Famotidine 20 MG TAB PO SCH (20:24)
[2018-09-21] MEDS ORDERED: Morphine 4 MG/ML VIAL SLOW IVP PRN (20:28)
[2018-09-21] MEDS ORDERED: Chlorhexidine Gluconate 15 ML UDCUP SSP SCH (21:00)
[2018-09-21] MEDS: Ondansetron PF 4 MG/2 ML Vial IVP PRN (21:09)
[2018-09-21 21:38] VITALS: BMI 31.3
[2018-09-21] MEDS ORDERED: Morphine 2 MG/ML SYRINGE SLOW IVP PRN (22:20)
[2018-09-22] MEDS: Chlorhexidine Gluconate 15 ML UDCUP SSP SCH ×5 (00:06→23:56)
[2018-09-22] MEDS: Clindamycin/D5W 900 MG in Premix Bag 1 BAG IVPB SCH ×4 (00:06→23:54)
--- NOTE | 2018-09-22 02:36 | HP ---
PRIMARY CARE PHYSICIAN: Rosa Finley with [facility]. CODE STATUS: The patient is full code. HISTORY OF PRESENT ILLNESS: The patient is a 57-year-old female with a past medical history of atrial fibrillation, heart failure with a pacemaker, hypertension, hyperlipidemia, coronary artery disease with stents hypothyroidism that presents to the ER for dental pain x1 day. The patient reports that she woke up this morning with a left bottom tooth pain. The patient reports she has a history of poor dentition and has a fractured tooth and a posterior bottom left molar. The patient reports that when she woke up this morning, she had severe dental pain along with left-sided facial swelling. The patient reports that she ran a low-grade temperature of 99 degrees Fahrenheit. The patient took Tylenol and ibuprofen around the clock to assist with her pain and then patient came into the ER. The patient had a similar incident 1 year ago where she had a periapical abscesses. In the ER, CT of the soft tissue neck was performed and it showed lingual left-sided periodontal abscess of the left mandibular angle at the level of 3rd mandibular root, which has a large cavity. There was reactive edema within the left submandibular duct with retrograde extension into the submandibular gland, which was edematous and inflamed. The patient's white count was 17.2. The patient was given Tylenol, Decadron, clindamycin IV piggyback, morphine and IV fluid and Dr. Rodriguez was consulted. PAST MEDICAL HISTORY: The patient has a past medical history of CAD with stents , CHF with a pacemaker, hypertension, hyperlipidemia, hypothyroidism. The patient also reports a history of atrial fibrillation with an ablation. She is on aspirin and Plavix. PAST SURGICAL HISTORY: The patient had right ankle reconstruction. The patient has had right ureter reconstruction. She has had an appendectomy and hysterectomy. FAMILY HISTORY: Family history is noncontributory. SOCIAL HISTORY: The patient denies using tobacco and illicit drugs and drinks socially. The patient has relocated from this area as well. For the past 4 or 5 months, she has been living with her son and his . PSYCHIATRIC HISTORY: The patient denies any psych history. ALLERGIES: THE PATIENT REPORTS ALLERGIES TO PENICILLINS, ANAPHYLAXIS; TETRACYCLINE, VOMITING AND HIVES; SULFA, VOMITING AND HIVES AND CECLOR VOMITING AND HIVES. HOME MEDICATIONS: 1. Temazepam 30 mg one p.o. at bedtime. 2. Lisinopril 40 mg p.o. daily. 3. Amiodarone 200 mg 1 p.o. at bedtime. 4. Reglan 10 mg 1 p.o. at bedtime. 5. Amlodipine 5 mg one p.o. daily. 6. Clopidogrel 75 mg 1 p.o. daily. 7. Bupropion HCL 75 mg 1 p.o. b.i.d. 8. Atorvastatin 40 mg 1 p.o. at bedtime. 9. Klonopin 1 mg one p.o. b.i.d. 10. Ventolin HFA inhaler 1-2 puffs q.4-6 hours p.r.n. shortness of breath. 11. Levothyroxine 100 mcg 1 p.o. daily. 12. Furosemide 40 mg one p.o. daily. 13. Alendronate 70 mg one p.o. q. week. 14. Baby aspirin 81 mg one p.o. daily. 15. Diltiazem HCL 360 mg one p.o. daily. 16. Metoprolol succinate 200 mg one p.o. q.a.m. 17. Zoloft 50 mg 1 and 1/2 tablets p.o. daily. REVIEW OF SYSTEMS: The patient reports left bottom posterior molar dental pain and associated left facial swelling and neck swelling. Reports low-grade fever, low-grade temperature. All other systems reviewed and negative unless stated in the HPI. PHYSICAL EXAMINATION: VITAL SIGNS: Temperature 100.3 oral, blood pressure 124/88, pulse 98, respirations 18, 94% on room air. HEAD: Atraumatic. The patient has left buccal swelling and left neck swelling with some associated erythema. EYES: Pupils equal, round, and reactive to light. Extraocular muscles intact. Sclerae nonicteric. ENT: Appears to have normal tympanic membranes. Nares are patent. The oropharynx is clear. There is some left buccal swelling and a fractured posterior bottom molar with associated erythemic gumline. The oropharynx is clear. The uvula is midline. The patient has poor dentition in several teeth with decay. NECK: Left neck has some mild swelling and erythema. It is tender to palpation. There are some left submandibular and left cervical lymphadenopathy. Trachea is midline. RESPIRATORY: The patient's respirations are even and unlabored. No rhonchi, wheezes, or rales. CARDIOVASCULAR: The patient has regular rate and rhythm. No murmurs, rubs, or gallops. ABDOMEN: Soft, nontender. No hepatosplenomegaly. Active bowel sounds. EXTREMITIES: Bilateral upper extremities, no swelling or edema. Palpable radial pulses. No clubbing or cyanosis. Brisk cap refill. Bilateral lower extremities, no swelling or edema. No clubbing or cyanosis. Brisk cap refill. Palpable pedal pulses. NEUROLOGIC: The patient is alert and oriented to person, place, and time. Moves all extremities well. She has nonfocal exam. SKIN: Skin is warm, dry, and intact. LABORATORY DATA: Sodium is 139, potassium is 3.3, BUN is 8, creatinine is 0.89, glucose 102, calcium 9.5. White blood cell count 17.2, hemoglobin 11.9, hematocrit 36.6, platelets 500. ASSESSMENT AND PLAN: 1. Left-sided periodontal abscess. The patient's vitals are stable at this time. Dr. Rodriguez was consulted by the ED and ordered IV antibiotics and peridex and he will evaluate patient in the AM. Clindamycin has been started. 2. Hypokalemia. The patient's potassium right now is 3.3. 40meq po was ordered and will recheck level in am. 4. Hypertension. We will restart patient's home medications. 5. Hyperlipidemia. We will restart patient's home medications. 6. Coronary artery disease. We will restart patient's home medications. 7. Congestive heart failure, stable We will restart patient's home medications. 8. Gastrointestinal and deep venous thrombosis prophylaxis. 9. Hospital course is dependent on clinical findings. Job ID: [id number] [facility]
[2018-09-22] MEDS: Morphine 4 MG/ML VIAL SLOW IVP PRN ×6 (02:39→22:50)
[2018-09-22 05:52] LABS: #Lymphocytes 0.9 thou/uL (1.20-3.40); #Monocytes 0.2 thou/uL (0.11-0.59); #Neutrophils 15.8 thou/uL (1.40-6.50); %Eosinophils 0.1 % (0.0-10.0); %Lymphocytes 5.6 % (21.0-51.0); %Monocytes 0.9 % (0.0-10.0); %Neutrophils 93.5 % (42.0-75.0); Hemoglobin 10.7 g/dL (12.0-16.0); Mean Corpuscular HGB CONC 31.6 g/dL (32.0-36.0); Mean Corpuscular Hemoglobin 26.1 pg (27.0-31.0); Mean Corpuscular Volume 82.5 fL (78.0-98.0); Mean Platelet Volume 6.7 fL (7.4-10.4); Platelet Count 461 thou/uL (130-400); RBC Distribution Width 14.5 % (11.5-14.5); Red Blood Cell (RBC) Count 4.11 mill/uL (4.20-5.40); White Blood Cell (WBC) Count 16.9 thou/uL (4.8-10.8)
[2018-09-22 06:09] LABS: ALT (SGPT) 37 U/L (8-55); AST (SGOT) 28 U/L (5-34); Albumin 3.6 g/dL (3.5-5.0); Alkaline Phosphatase 136 U/L (40-150); Anion Gap 16 mmol/L (10-20); BUN (Urea Nitrogen) 10 mg/dL (9.8-20.1); Bilirubin, Total 0.3 mg/dL (0.2-1.2); Calc. Creatinine Clearance 101 mL/min (70-130); Calcium 9.4 mg/dL (7.8-10.44); Carbon Dioxide 17 mmol/L (22-29); Chloride 106 mmol/L (98-107); Estimated GFR-MDRD 72; Globulin 3.1 g/dL (2.4-3.5); Glucose 132 mg/dL (70-105); Potassium 4.2 mmol/L (3.5-5.1); Protein, Total 6.7 g/dL (6.0-8.3); Sodium 135 mmol/L (136-145)
[2018-09-22] MEDS: Sodium Chloride 0.9% 1,000 ML IV SCH ×2 (08:44→23:58)
[2018-09-22] MEDS: Famotidine 20 MG TAB PO SCH ×2 (08:46→21:06)
[2018-09-22] MEDS: Enoxaparin Sodium 40 MG/0.4 ML SYRINGE SC SCH (08:47)
[2018-09-22] MEDS: Ondansetron PF 4 MG/2 ML Vial IVP PRN ×2 (08:50→19:06)
[2018-09-22] MEDS ORDERED: Levothyroxine Sodium 75 MCG TAB PO SCH (11:30)
[2018-09-22] MEDS ORDERED: Aspirin 81 mg Enteric Coated Tablet PO SCH (11:45)
[2018-09-22] MEDS ORDERED: Clopidogrel Bisulfate 75 MG TAB PO SCH (11:45)
[2018-09-22] MEDS ORDERED: buPROPion 75 MG TAB PO SCH (12:30)
--- NOTE | 2018-09-22 20:19 | PRG ---
DATE OF SERVICE: 09/22/2018 SUBJECTIVE: Ms. Kelly is a pleasant 57-year-old female with significant past cardiac history, including coronary artery disease, status post stent placement in October 2017; paroxysmal atrial fibrillation; hypertension; hyperlipidemia, as well as pacemaker placement, who presented to the hospital with complaints of left jaw pain. She has been admitted with left periodontal abscess, and has been being followed by Dr. Rodriguez of [facility]. She has been admitted for IV antibiotics. She continues to complain of some left jaw pain, although her swelling is much improved. She denies any chills or fever since starting on IV antibiotics. She has had some nausea this morning, but has no other complaints at this time. Patient denies any chest pain or shortness of breath. OBJECTIVE: VITAL SIGNS: Blood pressure is 91/60, pulse is 80, O2 saturation is 95%, respirations 18, and patient is afebrile at 98.6. GENERAL: The patient is a mildly obese female, in no acute distress. HEENT: Head is atraumatic and normocephalic. There is mild swelling along the left side of the patient's jawline. NECK: No JVD. No carotid bruits. Trachea is midline CV: S1 and S2. Regular rate and rhythm. No appreciable murmurs, rubs, or gallops. LUNGS: Regular respiratory rate and pattern. Clear to auscultation bilaterally. ABDOMEN: Soft. Positive bowel sounds. Nontender. EXTREMITIES: No edema. +2 DP pulses bilaterally. SKIN: Warm and dry. NEUROLOGIC: Cranial nerves 2 through 12 are intact. Patient is nonfocal. LABORATORY DATA: White blood cell count 16.9, hemoglobin 10.7, hematocrit 33.9, and platelets are 461. Sodium 135, potassium 4.2, BUN is 10, and creatinine 0.82. AST, ALT, and alk phos, all within normal limits. ASSESSMENT: 1. Left periodontal abscess. 2. Leukocytosis secondary to above. 3. History of coronary artery disease, status post stent placement in October 2017. 4. Paroxysmal atrial fibrillation. 5. Patient with permanent cardiac pacemaker. 6. Hypertension. 7. Hypothyroidism. 8. Anxiety. PLAN: I have discussed the patient's case with Dr. Rodriguez, who is hoping for outpatient procedure to be done in his office on Monday. We will continue IV antibiotics overnight and watch the patient carefully. We will restart the patient's aspirin and Plavix given her stent placement was less than a year ago, and likely this is a drug-eluting stent secondary to the patient. We will continue patient's other home medications including her anxiety medications and her levothyroxine. We will hold all antihypertensives at this point as the patient is mildly hypotensive secondary to pain medications. If white count trends down, hope to discharge the patient tomorrow with Dr. Rodriguez, deems that outpatient procedure is appropriate. Job ID: [id number]
[2018-09-22] MEDS: buPROPion 75 MG TAB PO SCH (21:06)
[2018-09-22] MEDS: Atorvastatin Calcium 40 MG TAB PO SCH (21:06)
[2018-09-22] MEDS: Temazepam 15 MG CAP PO SCH (21:11)
[2018-09-23] MEDS: Morphine 4 MG/ML VIAL SLOW IVP PRN ×5 (03:16→21:32)
[2018-09-23] MEDS: Chlorhexidine Gluconate 15 ML UDCUP SSP SCH ×3 (05:45→17:41)
[2018-09-23] MEDS: Levothyroxine Sodium 75 MCG TAB PO SCH (05:45)
[2018-09-23 05:54] LABS: #Lymphocytes 2.9 thou/uL (1.20-3.40); #Monocytes 0.8 thou/uL (0.11-0.59); #Neutrophils 9.1 thou/uL (1.40-6.50); %Eosinophils 0.2 % (0.0-10.0); %Lymphocytes 22.8 % (21.0-51.0); %Monocytes 6.5 % (0.0-10.0); %Neutrophils 70.5 % (42.0-75.0); Hemoglobin 9.1 g/dL (12.0-16.0); Mean Corpuscular HGB CONC 31.4 g/dL (32.0-36.0); Mean Corpuscular Hemoglobin 26.1 pg (27.0-31.0); Mean Corpuscular Volume 83.3 fL (78.0-98.0); Mean Platelet Volume 6.4 fL (7.4-10.4); Platelet Count 426 thou/uL (130-400); RBC Distribution Width 14.6 % (11.5-14.5); Red Blood Cell (RBC) Count 3.49 mill/uL (4.20-5.40); White Blood Cell (WBC) Count 12.9 thou/uL (4.8-10.8)
[2018-09-23 06:14] LABS: Anion Gap 11 mmol/L (10-20); BUN (Urea Nitrogen) 17 mg/dL (9.8-20.1); Calc. Creatinine Clearance 108 mL/min (70-130); Calcium 8.5 mg/dL (7.8-10.44); Carbon Dioxide 23 mmol/L (22-29); Chloride 106 mmol/L (98-107); Estimated GFR-MDRD 78; Glucose 83 mg/dL (70-105); Potassium 3.4 mmol/L (3.5-5.1); Sodium 137 mmol/L (136-145)
[2018-09-23] MEDS: Famotidine 20 MG TAB PO SCH ×2 (08:46→20:10)
[2018-09-23] MEDS: buPROPion 75 MG TAB PO SCH ×2 (08:46→20:10)
[2018-09-23] MEDS: Enoxaparin Sodium 40 MG/0.4 ML SYRINGE SC SCH (08:47)
[2018-09-23] MEDS: Clindamycin/D5W 900 MG in Premix Bag 1 BAG IVPB SCH ×2 (08:51→16:29)
[2018-09-23] MEDS ORDERED: Ferrous Sulfate 325 MG TAB PO SCH (09:00)
[2018-09-23] MEDS ORDERED: Aspirin 81 mg Enteric Coated Tablet PO SCH (09:00)
[2018-09-23] MEDS ORDERED: Clopidogrel Bisulfate 75 MG TAB PO SCH (09:00)
[2018-09-23] MEDS ORDERED: Amiodarone 200 MG TAB PO SCH (09:00)
[2018-09-23] MEDS: HYDROcodone/Acetaminophen 7.5/325 mg Tablet PO PRN ×2 (13:47→20:10)
--- NOTE | 2018-09-23 15:56 | PRG ---
DATE OF SERVICE: 09/23/2018 SUBJECTIVE: Ms. Kelly is a pleasant 57-year-old female, who presented to the hospital with complaints of left jaw pain and swelling. She has been admitted with left periodontal abscess, which is being followed by Dr. Rodriguez. She continues to have fairly significant pain in the left jaw area. She is able to maintain adequate oral intake. She denies any fever or chills. She has had no nausea overnight. No chest pain or shortness of breath. OBJECTIVE: VITAL SIGNS: Blood pressure 102/70, pulse 80, O2 saturation is 95% on room air, respirations is 18, and temperature is 98.3. GENERAL: The patient is a mildly obese female, resting comfortably in bed. HEENT: Head is atraumatic and normocephalic. She does have some mild edema along the left side of her jaw line, although this is improved. NECK: No JVD. No carotid bruits. Trachea is midline. CV: S1 and S2. Regular rate and rhythm. No appreciable murmurs, rubs, or gallops. LUNGS: Regular respiratory rate and pattern. Clear to auscultation bilaterally. ABDOMEN: Soft. Positive bowel sounds. Nontender. No masses. EXTREMITIES: No edema. +2 DP pulses bilaterally. EXTREMITIES: Warm and well perfused. SKIN: Warm and dry. NEUROLOGIC: Cranial nerves 2 through 12 are grossly intact. The patient is nonfocal. LABORATORY DATA: White blood cell count 12.9, hemoglobin is 9.1, hematocrit 29.1, and platelets 426. Sodium 137, potassium 3.4, chloride 106, and creatinine 0.77. ASSESSMENT: 1. Periodontal abscess, managed by Dr. Rodriguez. 2. Leukocytosis secondary to above. 3. History of coronary artery disease, status post stent placement in October 2017. 4. Paroxysmal atrial fibrillation, currently in AV-paced rhythm. 5. The patient with cardiac pacemaker. 6. Hypertension. 7. Hypothyroidism. PLAN: We will continue IV antibiotics and pain control. We will add hydrocodone and continue morphine for breakthrough pain. We will continue aspirin and Plavix given her placement of drug-eluting stent less than a year ago. This has been discussed with Dr. Rodriguez, who agrees with aspirin and Plavix despite upcoming procedure. The plan at this time is for continued close monitoring, IV antibiotics and pain control, with likely discharge tomorrow for periodontal abscess debridement and washout. Further recommendations based on her course. Job ID: [id number]
[2018-09-23] MEDS: Sodium Chloride 0.9% 1,000 ML IV SCH (16:27)
[2018-09-23] MEDS: Temazepam 15 MG CAP PO SCH (20:09)
[2018-09-23] MEDS: Atorvastatin Calcium 40 MG TAB PO SCH (20:10)
[2018-09-24] MEDS: Clindamycin/D5W 900 MG in Premix Bag 1 BAG IVPB SCH ×2 (01:11→08:53)
[2018-09-24] MEDS: Chlorhexidine Gluconate 15 ML UDCUP SSP SCH ×2 (01:11→05:40)
[2018-09-24] MEDS: Morphine 4 MG/ML VIAL SLOW IVP PRN ×3 (01:16→08:42)
[2018-09-24 05:30] LABS: #Lymphocytes 3.1 thou/uL (1.20-3.40); #Monocytes 0.8 thou/uL (0.11-0.59); #Neutrophils 6.5 thou/uL (1.40-6.50); %Basophils 0.3 % (0.0-1.0); %Eosinophils 0.4 % (0.0-10.0); %Lymphocytes 29.4 % (21.0-51.0); %Monocytes 7.5 % (0.0-10.0); %Neutrophils 62.4 % (42.0-75.0); Hemoglobin 9.1 g/dL (12.0-16.0); Mean Corpuscular HGB CONC 32.9 g/dL (32.0-36.0); Mean Corpuscular Hemoglobin 27.1 pg (27.0-31.0); Mean Corpuscular Volume 82.4 fL (78.0-98.0); Mean Platelet Volume 6.3 fL (7.4-10.4); Platelet Count 394 thou/uL (130-400); RBC Distribution Width 14.5 % (11.5-14.5); Red Blood Cell (RBC) Count 3.34 mill/uL (4.20-5.40); White Blood Cell (WBC) Count 10.3 thou/uL (4.8-10.8)
[2018-09-24] MEDS: Levothyroxine Sodium 75 MCG TAB PO SCH (05:40)
[2018-09-24 05:51] LABS: Anion Gap 11 mmol/L (10-20); BUN (Urea Nitrogen) 12 mg/dL (9.8-20.1); Calc. Creatinine Clearance 119 mL/min (70-130); Calcium 8.4 mg/dL (7.8-10.44); Carbon Dioxide 27 mmol/L (22-29); Chloride 105 mmol/L (98-107); Estimated GFR-MDRD 87; Glucose 72 mg/dL (70-105); Potassium 3.7 mmol/L (3.5-5.1); Sodium 139 mmol/L (136-145)
[2018-09-24 07:52] VITALS: BP 109/74; TEMP 98.6
[2018-09-24] MEDS: Sodium Chloride 0.9% 1,000 ML IV SCH (08:42)
[2018-09-24] MEDS: HYDROcodone/Acetaminophen 7.5/325 mg Tablet PO PRN (11:59)
--- NOTE | 2018-09-25 03:56 | DIS ---
DATE OF ADMISSION: 09/21/2018 DATE OF DISCHARGE: 09/24/2018 This is DAKOTA Arteaga dictating a report for Boston Serrato MD. DISCHARGE DIAGNOSES: 1. Periodontal abscess. 2. Hypertension. 3. Hypothyroidism. 4. Paroxysmal atrial fibrillation, currently in AV paced rhythm. 5. History of permanent pacemaker. 6. Coronary artery disease, status post stent placement in October 2017. CONSULTING PHYSICIANS: Ronald Rodriguez DDS, MD HOSPITAL COURSE: Ms. Kelly is a 57-year-old woman, who presented with left jaw pain and swelling, therefore, admitted for left periodontal abscess. She was seen by Dr. Rodriguez and states in the past, she required IV antibiotics for a total of 2 weeks. The patient states she continued to have intermittent pain in the left side of her jaw, but this has improved. She has been receiving IV antibiotics during her hospitalization. She was seen by Dr. Rodriguez, who recommended getting her into the office as early as possible today for tooth removal and drainage of the abscess. Advised to transition to oral clindamycin 4 times a day for 1 week. The patient is somewhat fearful of stopping of IV antibiotics due to the fact that she required prolonging of antibiotics in the past. It was explained to the patient, however, that the procedure was of most significance as it will help to drain out the infection and that she will continue with oral antibiotics after receiving 4 days of IV clindamycin during her stay. Her temperature has been normal. She has noted improvement with pain in her jaw, as well as swelling. Her white cell count has improved dramatically from 17.2 on initial admission to 10.3 today. She was seen by Dr. Serrato, who concurred with plan as above. REVIEW OF SYSTEMS: The patient denies having any nausea or vomiting. Reports having intermittent mild discomfort in the left side of her jaw. No tongue swelling or difficulty with her speech or breathing. Able to tolerate soft diet. Denies having any shortness of breath. No palpitations. No chest pain. Denies any abdominal pain or cramping. No fevers, chills, or sweats. All other review of systems are negative. PHYSICAL EXAMINATION: GENERAL: The patient appears well developed, well nourished, in no acute distress. VITAL SIGNS: Temperature 98.6, pulse 70, respirations 20, O2 saturation 93% on room air, and blood pressure 109/74. HEENT: Normocephalic and atraumatic. Pupils are equal, round, and reactive to light. Sclerae without icterus. Oropharynx is clear of any tonsillar erythema or exudates with left submandibular swelling that is tender to light palpation. This area measures approximately 45 cm in length. Visible erythema involving the soft tissue of the neck. Neck is otherwise supple. LUNGS: Clear to auscultation bilaterally. CARDIAC: Regular rate and rhythm. ABDOMEN: Soft, nontender, and nondistended. Normoactive bowel sounds present. EXTREMITIES: No lower leg swelling or edema. Pulses present and equal bilaterally. NEUROLOGIC: Alert and oriented x3. No focal deficits. SKIN: Without rash or jaundice. LABORATORY DATA: White blood cell count 10.3, hemoglobin 9.1, hematocrit 27.5, platelets 394. Sodium 139, potassium 3.7, chloride 105, carbon dioxide 27, anion gap 11, BUN 12, creatinine 0.73, GFR 87, glucose 72, calcium 9.4. LFTs unremarkable. IMAGING DATA: Soft tissue neck CT, 09/21/2018. Lingual left-sided periodontal abscess of the left mandibular angle at the level of the third mandibular root, which is a large cavity. Reactive edema within the left submandibular duct with retrograde extension into the submandibular gland, which is edematous and inflamed. Abscess measures 0.5 x 0.8 x 1.3 cm. CONDITION: Stable at discharge. ACTIVITY: As tolerated. DIET: Heart healthy, soft diet. DISCHARGE MEDICATIONS: Prescription given for, 1. Clindamycin 300 mg by mouth 4 times a day for a total of [address] Rodriguez will prescribe Peridex for . 2. The patient otherwise advised to resume all other home medications. FOLLOWUP: 1. The patient will be seen by Dr. Rodriguez immediately after discharge for I and D of the periodontal abscess. 2. The patient will follow up with her primary care physician within 1 week for review and to ensure continued improvement. DISPOSITION: The patient was medically cleared for discharge home on 09/24/2018. The patient was seen and evaluated by Dr. Serrato, who agrees upon care as described above. Job ID: [id number]
--- NOTE | 2018-09-26 23:50 | CON ---
DATE OF CONSULTATION: 09/22/2018 CONSULTING PHYSICIAN: [facility]. CHIEF COMPLAINT: Left mandibular pain and swelling. HISTORY OF PRESENT ILLNESS: This is a 57-year-old female with complicated past medical history, who presented to the emergency room with a recent onset of significant pain in the tooth #18 region with subsequent evolution into perimandibular swelling and pain. Upon presentation to the emergency room, CT scan of the neck was performed and it showed a small localized fluid collection adjacent to the lingual aspect of the mandible in the tooth #18 region. I was consulted for evaluation and management. PAST MEDICAL HISTORY: Atrial fibrillation, hypothyroidism, hyperlipidemia, hypertension, and coronary artery disease. PAST SURGICAL HISTORY: Pacemaker, hysterectomy, appendectomy, adenoids, right ankle reconstruction, and coronary stents. HOME MEDICATIONS: 1. Temazepam. 2. Lisinopril. 3. Amiodarone. 4. Reglan. 5. Amlodipine. 6. Plavix. 7. Bupropion. 8. Atorvastatin. 9. Klonopin. 10. Ventolin inhaler. 11. Levothyroxine. 12. Furosemide. 13. Alendronate. 14. Aspirin 81 mg. 15. Diltiazem. 16. Metoprolol. 17. Zoloft. ALLERGIES: PENICILLIN, TETRACYCLINE, BETADINE, SULFA, AND CECLOR. SOCIAL HISTORY: Denies smoking, alcohol, or drugs. REVIEW OF SYSTEMS: Positive pain in the tooth #18 region in addition to swelling of the left neck, in the sublingual area in addition to pain in these areas as well. Mild difficulty opening. PHYSICAL EXAMINATION: VITAL SIGNS: Blood pressure 95/65, heart rate 79, 96% oxygen on room air, and temperature 98.1. GENERAL: Alert and oriented x3, in no apparent distress. HEAD AND NECK: The patient has a bilateral lipomatosis of the cervical region. There is no obvious external swelling or asymmetry between the sides. There is no erythema or induration in the neck bilaterally. The patient is uncomfortable and has a palpable node in the left neck, which is tender to manipulation. The inferior border of the mandible is palpable throughout bilaterally. On intraoral exam, the patient has a mildly restricted interincisal opening. Tooth #18 has a large decay and is extremely tender to manipulation. There is mild sublingual edema in the tooth #18 region with a small area of fluctuance in the lingual tissues just adjacent to the roots of tooth #18. The floor of the mouth is otherwise soft and non-elevated. The oropharynx is within normal limits. The patient has decay in multiple other areas throughout the dentition, but there are no other areas of noted swelling or edema. LABORATORY DATA: CBC shows a white blood cell count of 16.9 from 17.2 yesterday, hemoglobin is 10.7, and platelets 461. Chemistry shows a sodium of 135, CO2 of 17, and glucose of 132. A CT scan of the neck shows a localized small fluid collection adjacent to the roots of tooth #18 with [id number] cellulitis involving the left sublingual and submandibular areas. There are no signs of involvement or deviation or embarrassment of the airway. Large caries and periapical radiolucencies involving tooth #18. ASSESSMENT: Infected tooth #18 with localized abscess adjacent to the root to that tooth with subsequent mild surrounding cellulitis in the left sublingual and submandibular areas. PLAN: 1. The patient is to be continued on IV antibiotics and completion of three doses of Decadron. The patient appears to be improving on this regimen and from a surgical standpoint, this is something that we could normally take care of on an outpatient basis. We will continue intravenous antibiotics and monitor for progress. If the patient does not progress or appears to get worse, I will plan to take the etiologic tooth out and drain any associated fluid collections in the operating room. Otherwise, if the patient continues to improve, the procedure will likely be done in my office on an outpatient basis on Monday. 2. Peridex rinses b.i.d. 3. Okay for diet. Job ID: [id number]
== END 2018-09-24 13:03 | disposition home or self-care (01) ==
LOC: ERS 12:52 → T4-B 17:20
PROVIDERS: ADMIT Internal Medicine; ATTEND Internal Medicine
DX: K05.219 Aggressive periodontitis, localized, unspecified severity (principal); I11.0 Hypertensive heart disease with heart failure; I50.9 Heart failure, unspecified; I48.0 Paroxysmal atrial fibrillation; I25.10 Atherosclerotic heart disease of native coronary artery without angina pectoris; E03.9 Hypothyroidism, unspecified; R59.0 Localized enlarged lymph nodes; Z95.0 Presence of cardiac pacemaker; Z95.5 Presence of coronary angioplasty implant and graft; E78.5 Hyperlipidemia, unspecified; Z79.82 Long term (current) use of aspirin; Z79.899 Other long term (current) drug therapy; E87.6 Hypokalemia; Z88.0 Allergy status to penicillin; Z88.2 Allergy status to sulfonamides
CPT/HCPCS: 70491; 80048 ×3; 80053; 83605; 85025 ×4; 96361 ×5; 96365; 96366 ×3; 96372; 96375; 96376 ×5; 97139 ×2; 99285; G0378 ×3; 36415; J1100; J1650; J2270; J2405; J3490; Q9966

== ENCOUNTER 2019-04-22 10:27 | Emergency (ER) | payer MEDICARE, OTHER ==
[2019-04-22 11:13] LABS: #Basophils 0.1 thou/uL (0.0-0.2); #Eosinphils 0.1 thou/uL (0.0-0.7); #Lymphocytes 2.7 thou/uL (1.20-3.40); #Monocytes 0.7 thou/uL (0.11-0.59); %Basophils 0.4 % (0.0-1.0); %Eosinophils 0.4 % (0.0-10.0); %Lymphocytes 18.5 % (21.0-51.0); %Monocytes 4.8 % (0.0-10.0); Hemoglobin 12.5 g/dL (12.0-16.0); Mean Corpuscular HGB CONC 32.2 g/dL (32.0-36.0); Mean Corpuscular Hemoglobin 28.1 pg (27.0-31.0); Mean Corpuscular Volume 87.2 fL (78.0-98.0); Mean Platelet Volume 6.5 fL (7.4-10.4); Platelet Count 483 thou/uL (130-400); RBC Distribution Width 14.1 % (11.5-14.5); Red Blood Cell (RBC) Count 4.45 mill/uL (4.20-5.40); White Blood Cell (WBC) Count 14.5 thou/uL (4.8-10.8)
[2019-04-22] MEDS ORDERED: Morphine 4 MG/ML VIAL ONE (11:28)
[2019-04-22 11:37] LABS: ALT (SGPT) 13 U/L (8-55); AST (SGOT) 11 U/L (5-34); Albumin 4.3 g/dL (3.5-5.0); Alkaline Phosphatase 127 U/L (40-110); Anion Gap 15 mmol/L (10-20); BUN (Urea Nitrogen) 9 mg/dL (9.8-20.1); Bilirubin, Total 0.4 mg/dL (0.2-1.2); CK (CPK) 122 U/L (29-168); Calc. Creatinine Clearance 0 mL/min (70-130); Calcium 9.5 mg/dL (7.8-10.44); Carbon Dioxide 22 mmol/L (22-29); Chloride 106 mmol/L (98-107); Estimated GFR-MDRD 78; Globulin 3.4 g/dL (2.4-3.5); Glucose 98 mg/dL (70-105); Lipase 74 U/L (8-78); Potassium 3.7 mmol/L (3.5-5.1); Protein, Total 7.7 g/dL (6.0-8.3); Sodium 139 mmol/L (136-145)
--- NOTE | 2019-04-22 11:43 | RAD ---
Exam:3 views left shoulder HISTORY: Fall. Pain. COMPARISON: None FINDINGS: Glenohumeral joint space is preserved. No fracture or dislocation. Visualized left ribs are intact. Left-sided transvenous pacemaker is partially identified. IMPRESSION: No fracture or dislocation.
[2019-04-22] MEDS ORDERED: Ondansetron PF 4 MG/2 ML Vial ONE (11:48)
--- NOTE | 2019-04-22 11:55 | RAD ---
PORTABLE CHEST: Date: 04/22/2019 HISTORY: Chest pain, status post fall. COMPARISON: 04/26/18 exam. FINDINGS: Heart size is within normal limits. Pacemaker in place. Atherosclerotic changes of aorta. Lungs are c lear of infiltrates. Chronic changes are seen. IMPRESSION: No active intrathoracic disease. POS: [facility]
--- NOTE | 2019-04-22 12:02 | CT ---
Exam: Head CT without contrast HISTORY: Trauma. Fall. Pain. COMPARISON: none FINDINGS: Hemorrhage: No intraparenchymal hemorrhage or extra-axial hematoma. Brain parenchyma: Cortical ruiz-white matter differentiation is preserved. No mass effect or midline shift. Basilar cisterns are patent. Ventricular system: Ventricles and sulci are patent and symmetric. Calvarium: Intact. Sinuses and mastoid air cells: Adequate aeration. IMPRESSION: No intracranial posttraumatic sequelae.
--- NOTE | 2019-04-22 12:05 | CT ---
MAXILLOFACIAL CT WITHOUT CONTRAST: HISTORY: Fall. Trauma. Pain. FINDINGS: Visualized brain parenchyma is unremarkable. Orbits: Bilateral ocular lenses are appropriately located. Both globes are intact. Retrobulbar fat is preserved. Symmetric attenuation of the optic nerves and ocular rectus muscles. Sinuses and mastoids: Adequate aeration. Aerodigestive tract: Patent. No mucosal abnormality. Limited evaluation of the oral cavity due to den da amalgam artifact. Midline fatty raphae of the tongue is preserved. Epiglottis has a normal caliber. Preepiglottic fat is preserved. Visualized spine and prevertebral soft tissues: Unremarkable. No evidence of fracture. Maxilla and mandible: Intact. No evidence of fracture. There is evidence of dental caries and periodo ntal disease. Bilateral mandibular condyles are appropriately located. Zygomatic arches are intact. The osseous margins of the orbits are intact. There is a soft tissue hematoma anterior to the lateral aspect of the left maxillary sinus. IMPRESSION: 1. No maxillofacial fracture. 2. Extensive. Periodontal disease with multiple dental caries. 3. Left facial soft tissue hematoma. Transcribed Date/Time: 04/22/2019 12:11 PM
[2019-04-22 14:18] LABS: Bacteria/HPF None Seen HPF (None Seen); Bilirubin Negative (Negative); Blood, Urine Negative (Negative); Clarity Clear (Clear); Glucose, Urine (Dipstick) Normal (Negative); Leukocyte Negative Leu/uL (Negative); Nitrite Negative (Negative); Protein, Urine (Dipstick) 30 mg/dL (Neg-Trace); RBC/HPF 0-3 HPF (0-3); Squamous Epithelial 0-3 HPF (0-3); Urobilinogen Normal mg/dL (Less than 2); WBC/HPF 0-3 HPF (0-3)
== END 2019-04-22 14:44 | disposition home or self-care (01) ==
LOC: ERS 10:27
DX: S00.12XA Contusion of left eyelid and periocular area, initial encounter (principal); S00.83XA Contusion of other part of head, initial encounter; S10.93XA Contusion of unspecified part of neck, initial encounter; F31.9 Bipolar disorder, unspecified; E78.5 Hyperlipidemia, unspecified; I10 Essential (primary) hypertension; I48.91 Unspecified atrial fibrillation; E03.9 Hypothyroidism, unspecified; F41.9 Anxiety disorder, unspecified; Z79.899 Other long term (current) drug therapy; Z79.82 Long term (current) use of aspirin; W19.XXXA Unspecified fall, initial encounter
CPT/HCPCS: 36415; 51701; 70450; 70486; 71045; 80053; 81003; 81015; 82550; 83690; 84484; 85025; 87804; 93005; 96361; 96374; 96375; A4353; J2270; J2405

== ENCOUNTER 2019-11-10 15:05 | Emergency (ER) | payer MEDICARE, OTHER ==
[2019-11-10] MEDS ORDERED: Morphine 4 MG/ML VIAL ONE (15:46)
[2019-11-10] MEDS ORDERED: Ondansetron PF 4 MG/2 ML Vial ONE (15:47)
[2019-11-10 16:10] LABS: #Eosinphils 0.2 thou/uL (0.0-0.7); #Lymphocytes 2.3 thou/uL (1.20-3.40); #Monocytes 0.4 thou/uL (0.11-0.59); #Neutrophils 6.5 thou/uL (1.40-6.50); %Basophils 0.3 % (0.0-1.0); %Eosinophils 1.7 % (0.0-10.0); %Lymphocytes 24.7 % (21.0-51.0); %Monocytes 4.4 % (0.0-10.0); %Neutrophils 68.9 % (42.0-75.0); Mean Corpuscular HGB CONC 32.9 g/dL (32.0-36.0); Mean Corpuscular Hemoglobin 28.5 pg (27.0-31.0); Mean Corpuscular Volume 86.6 fL (78.0-98.0); Mean Platelet Volume 6.6 fL (7.4-10.4); Platelet Count 348 thou/uL (130-400); RBC Distribution Width 16.3 % (11.5-14.5); Red Blood Cell (RBC) Count 4.22 mill/uL (4.20-5.40); White Blood Cell (WBC) Count 9.5 thou/uL (4.8-10.8)
[2019-11-10 16:33] LABS: ALT (SGPT) Less than 7 U/L (8-55); AST (SGOT) 7 U/L (5-34); Albumin 3.8 g/dL (3.5-5.0); Alkaline Phosphatase 91 U/L (40-110); Anion Gap 9 mmol/L (10-20); BUN (Urea Nitrogen) 9 mg/dL (9.8-20.1); Bilirubin, Total 0.2 mg/dL (0.2-1.2); Calc. Creatinine Clearance 0 mL/min (70-130); Carbon Dioxide 27 mmol/L (22-29); Chloride 107 mmol/L (98-107); Estimated GFR-MDRD Greater than 90; Globulin 2.8 g/dL (2.4-3.5); Glucose 95 mg/dL (70-105); Lipase 9 U/L (8-78); Potassium 3.7 mmol/L (3.5-5.1); Protein, Total 6.6 g/dL (6.0-8.3); Sodium 139 mmol/L (136-145)
[2019-11-10] MEDS ORDERED: Mag-Al 1200 mg/1200 mg/30 ML UDCUP ONE (16:53)
[2019-11-10] MEDS ORDERED: Lidocaine Viscous Sol 2% 15 ml UD Cup ONE (16:53)
--- NOTE | 2019-11-10 17:49 | ULT ---
GALLBLADDER ULTRASOUND: Indications: Right upper quadrant pain. FINDINGS: Images through the gallbladder show some faint echogenicity layering dependently, consistent with ech ogenic sludge. No evidence of gallstones. Gallbladder wall is normal. Common duct is normal caliber. Technologist describes a positive Black's sign. The visualized liver and right kidney appear unremarkable as visualized. The pancreas is obscured. IMPRESSION: Echogenicity in the gallbladder may represent mild sludge. No gallstone identified. Positive Black's sign is described. Consider elective follow up hepatobiliary scan to assess gallbladder function. POS: [facility]
== END 2019-11-10 17:25 | disposition home or self-care (01) ==
LOC: ERS 15:05
DX: K82.8 Other specified diseases of gallbladder (principal); F41.9 Anxiety disorder, unspecified; F31.9 Bipolar disorder, unspecified; I48.91 Unspecified atrial fibrillation; I11.0 Hypertensive heart disease with heart failure; I50.9 Heart failure, unspecified; E03.9 Hypothyroidism, unspecified; E78.5 Hyperlipidemia, unspecified; Z79.899 Other long term (current) drug therapy; Z79.01 Long term (current) use of anticoagulants; Z79.82 Long term (current) use of aspirin
CPT/HCPCS: 76705; 80053; 83690; 85025; 96361; 96374; 96375; J2270; J2405

== ENCOUNTER 2019-11-12 12:21 | Inpatient (IN) | payer MEDICARE, OTHER ==
[2019-11-12] MEDS ORDERED: Ondansetron PF 4 MG/2 ML Vial ONE (12:48)
[2019-11-12] MEDS ORDERED: Morphine 4 MG/ML VIAL ONE ×3 (12:48→15:01)
[2019-11-12 13:22] LABS: #Basophils 0.1 thou/uL (0.0-0.2); #Eosinphils 0.2 thou/uL (0.0-0.7); #Lymphocytes 2.8 thou/uL (1.20-3.40); #Monocytes 0.5 thou/uL (0.11-0.59); #Neutrophils 6.1 thou/uL (1.40-6.50); %Basophils 0.5 % (0.0-1.0); %Eosinophils 2.2 % (0.0-10.0); %Lymphocytes 28.8 % (21.0-51.0); %Monocytes 5.4 % (0.0-10.0); %Neutrophils 63.1 % (42.0-75.0); Hemoglobin 12.4 g/dL (12.0-16.0); Mean Corpuscular HGB CONC 32.6 g/dL (32.0-36.0); Mean Corpuscular Hemoglobin 28.4 pg (27.0-31.0); Mean Platelet Volume 7.1 fL (7.4-10.4); Platelet Count 364 thou/uL (130-400); RBC Distribution Width 16.2 % (11.5-14.5); Red Blood Cell (RBC) Count 4.37 mill/uL (4.20-5.40); White Blood Cell (WBC) Count 9.7 thou/uL (4.8-10.8)
[2019-11-12 13:46] LABS: ALT (SGPT) Less than 7 U/L (8-55); AST (SGOT) 9 U/L (5-34); Albumin 3.9 g/dL (3.5-5.0); Alkaline Phosphatase 99 U/L (40-110); Anion Gap 11 mmol/L (10-20); BUN (Urea Nitrogen) 11 mg/dL (9.8-20.1); Bilirubin, Total 0.2 mg/dL (0.2-1.2); Calc. Creatinine Clearance 0 mL/min (70-130); Calcium 8.6 mg/dL (7.8-10.44); Carbon Dioxide 26 mmol/L (22-29); Chloride 105 mmol/L (98-107); Estimated GFR-MDRD Greater than 90; Globulin 2.9 g/dL (2.4-3.5); Glucose 83 mg/dL (70-105); Lipase 33 U/L (8-78); Potassium 3.8 mmol/L (3.5-5.1); Protein, Total 6.8 g/dL (6.0-8.3); Sodium 138 mmol/L (136-145)
--- NOTE | 2019-11-12 14:04 | ULT ---
GALLBLADDER ULTRASOUND: 11/12/19 HISTORY: Nausea, vomiting, abdominal pain. FINDINGS: Images of the gallbladder show evidence of small amount of echogenic sludge layering dependently. No definite gallstone. Gallbladder wall is normal. The common bile duct is upper normal caliber measured at 5 to 6 mm. No intrahepatic ductal dilatation identified. Liver appears unremarkable. The pancreas is obscured. The right kidney is imaged and there is evidence of mild right hydronephrosis with prominence of the right collecting structures. Right kidney otherwise unremarkable. IMPRESSION: 1. Evidence of echogenic sludge in the gallbladder. No evidence of gallstones. 2. Fullness of the right renal collecting structures suggesting mild hydro. POS: [facility]
[2019-11-12 14:16] LABS: Bilirubin Negative (Negative); Blood, Urine Negative (Negative); Clarity Clear (Clear); Glucose, Urine (Dipstick) Normal (Negative); Ketone, Urine Negative (Negative); Leukocyte Negative Leu/uL (Negative); Nitrite Negative (Negative); Protein, Urine (Dipstick) Negative (Neg-Trace); Specific Gravity, Urine 1.007 (1.002-1.036); Urobilinogen Normal mg/dL (Less than 2)
--- NOTE | 2019-11-12 15:36 | CT ---
CT ABDOMEN AND PELVIS WITHOUT IV CONTRAST: 11/12/19 INDICATIONS: Abdominal pain. Gallbladder ultrasound earlier today suggested fullness of the right renal collecting structures. Gal lbladder sludge was seen with ultrasound. FINDINGS: Lung bases clear. Liver, spleen, and pancreas appear unremarkable. The gallbladder is unremarkable by CT. No pericholec ystic edema. No evidence of biliary duct dilatation. Adrenal glands normal. Kidneys unremarkable. There is no evidence of hydronephrosis. Ureters are normal caliber. No urinary calculus. Urinary bladder is contracted and not well evaluated. Small bowel loops appear normal. Appendix is not definitely identified. Patient may be post appendect ophelia. There are surgical clips in the right abdomen. Stool throughout the colon. The aorta is normal caliber with mild atherosclerotic change. No mass or adenopathy. No free fluid. Images through the pelvis show evidence of hysterectomy. Osseous structures unremarkable. IMPRESSION: No acute finding. POS: [facility]
[2019-11-12] MEDS ORDERED: Ondansetron ODT 4 MG TAB PO PRN (18:22)
[2019-11-12] MEDS ORDERED: Acetaminophen 650 MG Suppository PR PRN (18:22)
--- NOTE | 2019-11-12 19:22 | HP ---
PRIMARY CARE PHYSICIAN: Yadira. CHIEF COMPLAINT: Worsening right upper quadrant pain. HISTORY OF PRESENT ILLNESS: The patient is a 58-year-old female with a past medical history significant for CHF with a pacemaker, atrial fibrillation rate controlled on Xarelto, coronary artery disease x1, hypertension, hyperlipidemia, hypothyroidism, and GERD, who presents to the ER for the above complaint. The patient reports that she was seen in ER on Monday for right upper quadrant pain, nausea, vomiting, diarrhea. Workup showed that she had gallbladder sludge. She was sent home with analgesia, antiemetics, and to follow up with the surgeon. She reports that since her discharge, she has had worsening right upper quadrant abdominal pain with worsening nausea, vomiting, diarrhea, stating that I am unable to hold anything down. She reports that she has had two vomiting episodes. No hematemesis, and three liquid stools. Denies any blood in her stools. She has no recent travel. No recent antibiotic use. She has not eaten any uncooked foods. She denies any fever or chills. She describes the right upper quadrant pain as aching, throbbing, and sometimes stabbing, exacerbated with food and relieved by nothing. She reports that it is constant and has been getting worse. For those reasons, she came to the ER. In the ER, she was afebrile, hypertensive, tachycardic with normal respirations, normal O2 saturation, 8/10 pain. Right upper quadrant ultrasound was positive for gallbladder sludge. Negative for any gallbladder stones. It also showed right hydronephrosis. CT of the abdomen was ordered and was negative for any abdominal stones, sludge, or hydronephrosis. Her WBCs were 9.7. Her lactic acid was 0.8. Her CMP was unremarkable. She had a lipase of 33. The patient was given morphine 12 mg, 1 L normal saline, and Zofran with improvement of her symptoms. PAST MEDICAL HISTORY: 1. Hypertension. 2. Hyperlipidemia. 3. Hypothyroidism. 4. GERD. 5. Anxiety and depression. 6. Bipolar. 7. Atrial fibrillation, chronic anticoagulation. 8. Coronary artery disease, one stent. 9. CHF with pacemaker. PAST SURGICAL HISTORY: 1. Hysterectomy. 2. Appendectomy. 3. CAD x1 stent. 4. Pacemaker. 5. Right ankle surgery. 6. Right ureteral reconstruction. SOCIAL HISTORY: The patient lives at home. She denies any history of smoking, illicit drug use, or alcohol intake. She ambulates without any assistive devices. FAMILY HISTORY: Noncontributory to this case. ALLERGIES: 1. CECLOR. 2. PENICILLINS. 3. BETADINE. 4. SULFA. 5. TETRACYCLINE. HOME MEDICATIONS: Unable to reconcile home medications. The patient at bedside. We will wait nursing. REVIEW OF SYSTEMS: All review of systems are negative unless otherwise stated in HPI. PHYSICAL EXAMINATION: VITAL SIGNS: Temperature 99.1, blood pressure 147/88, pulse 66, respirations 18 , and 97% on room air. CONSTITUTIONAL: The patient is alert and oriented to person, place, and time. Mildly uncomfortable, but nontoxic in appearance. HEENT: Head, atraumatic and normocephalic. Eyes, PERRLA. Extraocular muscles intact. Sclerae nonicteric. NECK: Full range of motion. No cervical spinal tenderness. No JVD. No cervical adenopathy. ENT, oropharynx is clear. Uvula midline. Moist mucous membranes. No oral lesions. RESPIRATORY/CHEST: Respirations are even, nonlabored. Clear to auscultation. No murmurs, rubs, or gallops. CARDIAC: Regular rate and rhythm. 3/6 murmur. No rubs or gallops. ABDOMEN: Soft, moderately tender to palpation particularly in the right upper quadrant. No guarding. No rigidity. No rebound. Positive Black sign. BACK: Full range of motion. No central spinous tenderness. No CVA tenderness. EXTREMITIES: Upper extremities; full range of motion, normal strength, sensation intact. Palpable radial pulses. Lower extremities; full range of motion, normal strength, normal sensation. Palpable pedal pulses. No swelling. NEUROLOGIC: The patient is alert and oriented to person, place, and time. Follows commands. Moves all extremities well. No focal motor deficits. Normal gait. PSYCHIATRIC: A and O x3. Normal affect. Denies any suicidal or homicidal ideation. LABORATORY AND DIAGNOSTIC DATA: EKG; normal sinus rhythm. Sodium 138, potassium 3.8, chloride 105, carbon dioxide 26, BUN 11, creatinine 0.67, glucose 83, lactic acid 0.8, calcium 8.6, total bilirubin 0.2, AST 9, ALT less than 7, alkaline phosphatase 99, lipase 33, albumin 3.9. WBCs 9.7, hemoglobin 12.4, hematocrit 38, platelets 364. UA unremarkable. Right upper quadrant ultrasound was positive for gallbladder sludge, negative for gallbladder stones. CT of the abdomen and pelvis was negative for any acute abdominal process. ASSESSMENT AND PLAN: 1. Right upper quadrant pain. We will admit the patient to the surgical floor, observation status. Expected length of stay less than two midnights. The patient presents for right upper quadrant pain with nausea, vomiting, and diarrhea for 2 days. Gallbladder ultrasound does show sludge and no stone. CT of abdomen and pelvis was negative for any acute abdominal process. WBCs are 9.7. Lactic acid was 0.8. Lipase within normal limits. CMP and WBCs were unremarkable. We will order HIDA scan. We will leave the patient n.p.o. We will give gentle IV fluid hydration secondary to patient's history of congestive heart failure. We will give abx, analgesics and antiemetics p.r.n. We will hold anticoagulation for now. 2. Nausea, vomiting, and diarrhea, likely secondary to problem #1. 3. Hypertension. The patient has a history of high blood pressure, presented with a blood pressure 181/100, likely secondary to the pain she was feeling from her abdomen. We will restart the patient's home antihypertensive once reconciled by nursing. We will continue to monitor blood pressure. 4. Congestive heart failure, chronic. The patient has a pacemaker. The patient has no signs of any acute congestive heart failure exacerbation. We will restart home medications. 5. Coronary artery disease. The patient has a single stent on Plavix. We will hold Plavix for now. We will continue aspirin. 6. Atrial fibrillation. The patient presented normal sinus rhythm. Has a history of atrial fibrillation, on Xarelto. We will hold Xarelto for now. 7. Gastroesophageal reflux disease. We will start the patient on Protonix. 8. Hypothyroidism. We will restart the patient's home medication when reconciled by nursing. 9. No SCDs for deep venous thrombosis prophylaxis. Protonix for gastrointestinal prophylaxis. The patient is full code. 10. Discussed this case with Dr. Levin. Job ID: [id number]
[2019-11-12] MEDS: Morphine 2 MG/ML VIAL SLOW IVP PRN ×2 (19:48→23:51)
[2019-11-12] MEDS: Sodium Chloride 0.9% 1,000 ML IV SCH (19:50)
[2019-11-12 21:26] VITALS: BMI 30.5
[2019-11-12] MEDS: metroNIDAZOLE 500 MG in Premix Bag 1 BAG IVPB SCH (23:14)
[2019-11-12] MEDS: Ondansetron PF 4 MG/2 ML Vial IVP PRN (23:21)
[2019-11-12] MEDS ORDERED: Temazepam 15 MG CAP PO SCH (23:30)
[2019-11-13] MEDS: metroNIDAZOLE 500 MG in Premix Bag 1 BAG IVPB SCH ×3 (05:04→22:03)
[2019-11-13] MEDS: Morphine 2 MG/ML VIAL SLOW IVP PRN ×4 (05:04→22:33)
[2019-11-13 05:31] LABS: #Basophils 0.1 thou/uL (0.0-0.2); #Eosinphils 0.2 thou/uL (0.0-0.7); #Lymphocytes 3.6 thou/uL (1.20-3.40); #Monocytes 0.4 thou/uL (0.11-0.59); #Neutrophils 4.7 thou/uL (1.40-6.50); %Basophils 0.9 % (0.0-1.0); %Eosinophils 1.7 % (0.0-10.0); %Lymphocytes 40.2 % (21.0-51.0); %Monocytes 4.7 % (0.0-10.0); %Neutrophils 52.5 % (42.0-75.0); Hemoglobin 11.5 g/dL (12.0-16.0); Mean Corpuscular HGB CONC 29.9 g/dL (32.0-36.0); Mean Corpuscular Hemoglobin 26.7 pg (27.0-31.0); Mean Corpuscular Volume 89.3 fL (78.0-98.0); Mean Platelet Volume 6.8 fL (7.4-10.4); Platelet Count 365 thou/uL (130-400); RBC Distribution Width 16.3 % (11.5-14.5); Red Blood Cell (RBC) Count 4.31 mill/uL (4.20-5.40); White Blood Cell (WBC) Count 8.9 thou/uL (4.8-10.8)
[2019-11-13 05:38] LABS: Anion Gap 11 mmol/L (10-20); BUN (Urea Nitrogen) 7 mg/dL (9.8-20.1); Calc. Creatinine Clearance 129 mL/min (70-130); Calcium 8.5 mg/dL (7.8-10.44); Carbon Dioxide 24 mmol/L (22-29); Chloride 107 mmol/L (98-107); Estimated GFR-MDRD Greater than 90; Glucose 83 mg/dL (70-105); Potassium 3.6 mmol/L (3.5-5.1); Sodium 138 mmol/L (136-145)
[2019-11-13] MEDS ORDERED: Levothyroxine Sodium 75 MCG TAB PO SCH (09:00)
[2019-11-13] MEDS ORDERED: SERTRALINE HCL 200 MG PO SCH (09:00)
[2019-11-13] MEDS: clonazePAM 1 MG TAB PO SCH ×2 (10:28→20:12)
--- NOTE | 2019-11-13 11:33 | PDOC.HOSPP ---
- Subjective Encounter Date: 11/13/19 Encounter Time: 08:20 Subjective: Patient seen and examined bedside today, no overnight event, no new complaint, patient is asking for pain medication Patient reports that she had several HIDA scan in the past Patient is originally from [facility] and now she is moved to [facility] area - Objective Vital Signs & Weight: Vital Signs (12 hours) Temp Pulse Resp BP Pulse Ox 11/13/19 07:29 99.2 F 67 18 99/70 94 L 11/13/19 04:00 97.9 F 78 16 132/88 97 11/12/19 23:53 98.6 F 71 16 137/86 96 Weight Weight 178 lb 0.02 oz I&O: 11/12/19 11/13/19 11/14/19 06:59 06:59 06:59 Intake Total 900 Balance 900 Result Diagrams: 11/13/19 04:50 11/13/19 04:50 Radiology Reviewed by me: Yes Hospitalist ROS - Review of Systems Eyes: denies: pain, vision change, conjunctivae inflammation, eyelid inflammation, redness, other ENT: denies: ear pain, ear discharge, nose pain, nose discharge, nose congestion , mouth pain, mouth swelling, throat pain, throat swelling, other Respiratory: denies: cough, dry, shortness of breath, hemoptysis, SOB with excertion, pleuritic pain, sputum, wheezing, other Cardiovascular: denies: chest pain, palpitations, orthopnea, paroxysmal noc. dyspnea, edema, light headedness, other Gastrointestinal: reports: abdominal pain. denies: nausea, vomiting, diarrhea, constipation, melena, hematochezia, other Genitourinary: denies: dysuria, frequency, incontinence, hematuria, retention, other Musculoskeletal: denies: neck pain, shoulder pain, arm pain, back pain, hand pain, leg pain, foot pain, other - Medication Medications: Active Medications Generic Name Dose Route Start Last Admin Trade Name Freq PRN Reason Stop Dose Admin Clonazepam 1 mg 11/13/19 09:00 11/13/19 10:28 Klonopin PO 1 mg BID MANUELA Administration Sodium Chloride 1,000 mls @ 70 mls/hr 11/12/19 18:30 11/12/19 19:50 Normal Saline 0.9% IV 1,000 mls .[id number] MANUELA Administration Metronidazole 500 mg/ Device 100 mls @ 100 mls/hr 11/12/19 22:00 11/13/19 05: 04 IVPB 100 mls Q8HR MANUELA Administration Ciprofloxacin/Dextrose 400 mg/ 200 mls @ 200 mls/hr 11/12/19 21:00 11/13/19 09:03 Device IVPB 200 mls Q12HR MANUELA Administration Morphine Sulfate 2 mg 11/12/19 18:24 11/13/19 05:04 Morphine SLOW IVP 2 mg Q4H PRN Administration Pain>3 Ondansetron HCl 4 mg 11/12/19 18:22 11/12/19 23:21 Zofran IVP 4 mg Q6H PRN Administration Nausea/Vomiting - Exam General Appearance: NAD, awake alert Eye: PERRL, anicteric sclera ENT: normocephalic atraumatic, no oropharyngeal lesions Neck: supple, symmetric, no JVD, no thyromegaly Heart: RRR, no murmur, no gallops, no rubs Respiratory: CTAB, no wheezes, no rales, no ronchi Gastrointestinal: soft, non-tender, non-distended, normal bowel sounds Extremities: no cyanosis, no clubbing, no edema Skin: normal turgor, no lesions Neurological: cranial nerve grossly intact, no focal deficits Musculoskeletal: normal tone, normal strength Hosp A/P (1) Atrial fibrillation Code(s): I48.91 - UNSPECIFIED ATRIAL FIBRILLATION Status: Acute (2) Bipolar 1 disorder Code(s): F31.9 - BIPOLAR DISORDER, UNSPECIFIED Status: Acute (3) CAD (coronary artery disease) Code(s): I25.10 - ATHSCL HEART DISEASE OF [place] CORONARY ARTERY W/O ANG PCTRS Status: Acute (4) CHF (congestive heart failure) Code(s): I50.9 - HEART FAILURE, UNSPECIFIED Status: Acute (5) HLD (hyperlipidemia) Code(s): E78.5 - HYPERLIPIDEMIA, UNSPECIFIED Status: Acute (6) HTN (hypertension) Code(s): I10 - ESSENTIAL (PRIMARY) HYPERTENSION Status: Acute (7) Hypothyroid Code(s): E03.9 - HYPOTHYROIDISM, UNSPECIFIED Status: Acute (8) Pacemaker Code(s): Z95.0 - PRESENCE OF CARDIAC PACEMAKER Status: Acute - Plan old records reviewed/req Assessment and plan Right upper quadrant pain, likely from gallbladder dysfunction, her LFTs normal , her ultrasound is unremarkable other than possible mild sludge and patient does not have any acute process. This patient pain is for a long period of time. Patient will need outpatient further evaluation for laparoscopic cholecystectomy. Patient will need cardiac clearance before surgery. We are doing HIDA scan today and if it is unremarkable then will consider discharging her home later on today Nausea vomiting continue symptomatic treatment Hypertension but currently low blood pressure likely due to morphine. I have instructed patient to monitor blood pressure at home Congestive heart failure patient is instructed to follow-up with her cardiology for preoperative clearance if needed.
[2019-11-13 11:48] LABS: SARS-CoV-2 MS2 Positive; SARS-CoV-2 N Gene Negative; SARS-CoV-2 S Gene Negative; SARS-CoV-2 by NAA Not Detected (NotDetected); SARS-CoV-2 orf1ab Negative
[2019-11-13] MEDS: Clopidogrel Bisulfate 75 MG TAB PO SCH (13:45)
[2019-11-13] MEDS: Amiodarone 200 MG TAB PO SCH (13:45)
[2019-11-13] MEDS: Dicyclomine 10 MG CAP PO SCH (13:45)
[2019-11-13] MEDS: Aspirin 81 mg Enteric Coated Tablet PO SCH (13:45)
--- NOTE | 2019-11-13 13:54 | NM ---
Radionucleotide hepatobiliary scan with gallbladder ejection fraction HISTORY: Postprandial right upper quadrant pain. Right upper quadrant postprandial pain. FINDINGS: Early images show physiologic uptake of radiotracer throughout the hepatic parenchyma. Gall bladder first imaged at 11 minutes. Uptake within the small bowel at 10 minutes. After administration of fatty meal, there is progressive excretion of radiotracer from the gallbladde r to the small bowel. Ejection fraction calculated at 63%. IMPRESSION : Normal exam. Normal gallbladder ejection fraction.
[2019-11-13] MEDS: Sodium Chloride 0.9% 1,000 ML IV SCH (14:49)
[2019-11-13] MEDS: Ondansetron PF 4 MG/2 ML Vial IVP PRN (18:31)
[2019-11-13] MEDS: Temazepam 15 MG CAP PO SCH (20:11)
[2019-11-13] MEDS: Atorvastatin Calcium 40 MG TAB PO SCH (20:12)
[2019-11-13] MEDS: Pantoprazole 40 MG VIAL IVP SCH (20:12)
[2019-11-13] MEDS ORDERED: diphenhydrAMINE 25 MG in Sodium Chloride 0.9% 50 ML IVPB SCH (21:15)
--- NOTE | 2019-11-13 21:16 | PDOC.EVN ---
Event Note - Event Note Event Note: Notified by RN that patient had itching at IV site that began 20 min after administration of Cipro. I advised to give Benadryl and resume Cipro infusion. Concern due to history of multiple antibiotic allergies, therefore Cipro will be held. Primary team to decide on further antibiotics.
[2019-11-14] MEDS: Sodium Chloride 0.9% 1,000 ML IV SCH ×2 (00:35→12:42)
[2019-11-14] MEDS: Levothyroxine Sodium 100 MCG TAB PO SCH (05:09)
[2019-11-14] MEDS: metroNIDAZOLE 500 MG in Premix Bag 1 BAG IVPB SCH (05:09)
[2019-11-14] MEDS: Morphine 2 MG/ML VIAL SLOW IVP PRN ×2 (05:09→09:26)
[2019-11-14] MEDS ORDERED: diphenhydrAMINE 50 MG/ML VIAL IVP PRN (08:42)
[2019-11-14] MEDS: Dicyclomine 10 MG CAP PO SCH (09:19)
[2019-11-14] MEDS: Clopidogrel Bisulfate 75 MG TAB PO SCH (09:19)
[2019-11-14] MEDS: Aspirin 81 mg Enteric Coated Tablet PO SCH (09:19)
[2019-11-14] MEDS: clonazePAM 1 MG TAB PO SCH ×2 (09:20→19:53)
[2019-11-14] MEDS: Amiodarone 200 MG TAB PO SCH (09:20)
[2019-11-14] MEDS: Ondansetron PF 4 MG/2 ML Vial IVP PRN ×2 (10:10→18:22)
[2019-11-14] MEDS ORDERED: Ketorolac Tromethamine 30 MG/ML VIAL IVP SCH (12:00)
[2019-11-14 13:41] LABS: Amphetamine Not Detected (NotDetected); Barbiturates Screen Detected (NotDetected); Benzodiazepine Screen Detected (NotDetected); Cocaine Metabolite Screen Not Detected (NotDetected); Medtox Control Line Valid? VALID (VALID); Medtox Reader # READER 4; Methadone Not Detected (NotDetected); Methamphetamine Not Detected (NotDetected); Opiate Screen Detected (NotDetected); Oxycodone Screen Not Detected (NotDetected); Phencyclidine (PCP) Not Detected (NotDetected); THC/Cannabinoid Screen Not Detected (NotDetected); Tricyclic Screen Not Detected (NotDetected)
[2019-11-14] MEDS: Cyclobenzaprine 10 MG TAB PO SCH ×2 (14:02→19:53)
[2019-11-14] MEDS ORDERED: Morphine 2 MG/ML VIAL SLOW IVP PRN (14:48)
--- NOTE | 2019-11-14 17:42 | PDOC.HOSPP ---
- Subjective Encounter Date: 11/14/19 Encounter Time: 11:00 Subjective: pt up in bed states she still has n/v and pain to her abdomen. - Objective Vital Signs & Weight: Vital Signs (12 hours) Temp Pulse Resp BP Pulse Ox 11/14/19 15:05 98.5 F 77 16 131/87 96 11/14/19 12:00 98.2 F 71 18 126/89 97 11/14/19 10:57 98.2 F 71 18 126/89 97 11/14/19 08:00 98.3 F 68 20 122/84 99 Weight Weight 178 lb 0.02 oz I&O: 11/13/19 11/14/19 11/15/19 06:59 06:59 06:59 Intake Total 900 500 Balance 900 500 Result Diagrams: 11/13/19 04:50 11/13/19 04:50 Hospitalist ROS - Review of Systems Cardiovascular: denies: chest pain, palpitations, orthopnea, paroxysmal noc. dyspnea, edema, light headedness, other Gastrointestinal: reports: nausea, vomiting, abdominal pain. denies: diarrhea, constipation, melena, hematochezia, other Genitourinary: denies: dysuria, frequency, incontinence, hematuria, retention, other - Medication Medications: Active Medications Generic Name Dose Route Start Last Admin Trade Name Blazeq PRN Reason Stop Dose Admin Amiodarone HCl 200 mg 11/13/19 09:00 11/14/19 09:20 Cordarone PO 200 mg DAILY MANUELA Administration Aspirin 81 mg 11/13/19 09:00 11/14/19 09:19 Ecotrin PO 81 mg DAILY MANUELA Administration Atorvastatin Calcium 40 mg 11/13/19 21:00 11/13/19 20:12 Lipitor PO 40 mg HS MANUELA Administration Clonazepam 1 mg 11/13/19 09:00 11/14/19 09:20 Klonopin PO 1 mg BID MANUELA Administration Clopidogrel Bisulfate 75 mg 11/13/19 09:00 11/14/19 09:19 Plavix PO 75 mg DAILY MANUELA Administration Cyclobenzaprine HCl 10 mg 11/14/19 15:00 11/14/19 14:02 Flexeril PO 11/15/19 15:00 10 mg TID MANUELA Administration Dicyclomine HCl 10 mg 11/13/19 09:00 11/14/19 09:19 Bentyl PO 10 mg DAILY MANUELA Administration Sodium Chloride 1,000 mls @ 70 mls/hr 11/12/19 18:30 11/14/19 12:42 Normal Saline 0.9% IV 1,000 mls .[id number] MANUELA Administration Ketorolac Tromethamine 15 mg 11/14/19 12:00 11/14/19 12:53 Toradol IVP 11/15/19 12:01 Not Given Q6HR MANUELA Levothyroxine Sodium 100 mcg 11/14/19 06:00 11/14/19 05:09 Synthroid PO 100 mcg 0600 MANUELA Administration Morphine Sulfate 2 mg 11/14/19 14:48 11/14/19 15:19 Morphine SLOW IVP 11/14/19 20:00 2 mg BID PRN Administration Pain Ondansetron HCl 4 mg 11/12/19 18:22 11/14/19 10:10 Zofran IVP 4 mg Q6H PRN Administration Nausea/Vomiting Pantoprazole Sodium 40 mg 11/13/19 21:00 11/13/19 20:12 Protonix IVP 40 mg HS MANUELA Administration Sertraline HCl 200 mg 11/13/19 09:00 11/14/19 09:19 Zoloft PO 200 mg DAILY MANUELA Administration Temazepam 30 mg 11/13/19 21:00 11/13/19 20:11 Restoril PO 30 mg HS MANUELA Administration - Exam Neck: negative: supple, symmetric, no JVD, no thyromegaly, no lymphadenopathy, no carotid bruit, JVD Heart: negative: RRR, no murmur, no gallops, no rubs, normal peripheral pulses, irregular, diminshed peripheral pulses, murmur present, II/IV, III/IV Respiratory: negative: CTAB, no wheezes, no rales, no ronchi, normal chest expansion, no tachypnea, normal percussion, rales, rhonchi, tachypneic, wheezes Gastrointestinal: soft Gastrointestinal - other findings: pt's pain is on her right flank area going to her paraspinal muscle. Extremities: negative: no cyanosis, no clubbing, no edema, 1+ LE edema, 2+ LE edema, clubbing Hosp A/P (1) Pain in the abdomen Code(s): R10.9 - UNSPECIFIED ABDOMINAL PAIN Status: Acute (2) Atrial fibrillation Code(s): I48.91 - UNSPECIFIED ATRIAL FIBRILLATION Status: Acute (3) Bipolar 1 disorder Code(s): F31.9 - BIPOLAR DISORDER, UNSPECIFIED Status: Acute (4) CAD (coronary artery disease) Code(s): I25.10 - ATHSCL HEART DISEASE OF [place] CORONARY ARTERY W/O ANG PCTRS Status: Acute (5) HLD (hyperlipidemia) Code(s): E78.5 - HYPERLIPIDEMIA, UNSPECIFIED Status: Acute - Plan will stop abx, hida normal, lfts normal. pt's pain is all the around her right flank and paraspinal area and her right upper quadrant. unlikely due to gallbladder disease. i stopped her morphine and she got upset and wanted me to put her back on the morphine. I explained to her that morphine will not be helpful. she may need steroid or nsaids. will give her two doses of morphine and lidoderm patch.
[2019-11-14] MEDS ORDERED: Rivaroxaban 10 MG TAB PO SCH (18:00)
[2019-11-14] MEDS: Lidocaine 5% Patch TD SCH (18:47)
[2019-11-14] MEDS: Atorvastatin Calcium 40 MG TAB PO SCH (19:53)
[2019-11-14] MEDS: traMADol HCl 50 MG TAB PO PRN (19:53)
[2019-11-14] MEDS: Pantoprazole 40 MG VIAL IVP SCH (19:54)
[2019-11-14] MEDS: Temazepam 15 MG CAP PO SCH (19:54)
[2019-11-15] MEDS ORDERED: Morphine 2 MG/ML VIAL SLOW IVP PRN (04:31)
[2019-11-15] MEDS: traMADol HCl 50 MG TAB PO PRN ×2 (05:44→12:25)
[2019-11-15] MEDS: Levothyroxine Sodium 100 MCG TAB PO SCH (05:44)
[2019-11-15] MEDS: Lidocaine Patch Removal TOP SCH (05:44)
[2019-11-15] MEDS: Rivaroxaban 10 MG TAB PO SCH (05:44)
[2019-11-15] MEDS ORDERED: Amlodipine 5 MG TAB PO SCH (09:00)
[2019-11-15] MEDS ORDERED: Non-Formulary Item 1 EACH (Rivaroxaban [Xarelto] 20 MG) PO SCH (09:00)
[2019-11-15] MEDS: clonazePAM 1 MG TAB PO SCH ×2 (09:50→22:01)
[2019-11-15] MEDS: Dicyclomine 10 MG CAP PO SCH (09:50)
[2019-11-15] MEDS: Amiodarone 200 MG TAB PO SCH (09:51)
[2019-11-15] MEDS: Cyclobenzaprine 10 MG TAB PO SCH ×2 (09:51→15:53)
[2019-11-15] MEDS: Clopidogrel Bisulfate 75 MG TAB PO SCH (09:51)
[2019-11-15] MEDS: Metoclopramide HCl 10 MG/2 ML VIAL IVP SCH ×2 (12:19→21:55)
[2019-11-15 13:16] LABS: #Eosinphils 0.1 thou/uL (0.0-0.7); #Monocytes 0.4 thou/uL (0.11-0.59); #Neutrophils 5.1 thou/uL (1.40-6.50); %Basophils 0.5 % (0.0-1.0); %Eosinophils 1.4 % (0.0-10.0); %Lymphocytes 26.1 % (21.0-51.0); %Monocytes 5.7 % (0.0-10.0); %Neutrophils 66.3 % (42.0-75.0); Hemoglobin 11.8 g/dL (12.0-16.0); Mean Corpuscular HGB CONC 31.7 g/dL (32.0-36.0); Mean Corpuscular Volume 88.2 fL (78.0-98.0); Mean Platelet Volume 7.2 fL (7.4-10.4); Platelet Count 361 thou/uL (130-400); RBC Distribution Width 16.1 % (11.5-14.5); Red Blood Cell (RBC) Count 4.22 mill/uL (4.20-5.40); White Blood Cell (WBC) Count 7.7 thou/uL (4.8-10.8)
[2019-11-15 13:40] LABS: ALT (SGPT) Less than 7 U/L (8-55); AST (SGOT) 9 U/L (5-34); Albumin 3.6 g/dL (3.5-5.0); Alkaline Phosphatase 93 U/L (40-110); Anion Gap 8 mmol/L (10-20); BUN (Urea Nitrogen) 10 mg/dL (9.8-20.1); Bilirubin, Total 0.2 mg/dL (0.2-1.2); Calc. Creatinine Clearance 114 mL/min (70-130); Calcium 8.7 mg/dL (7.8-10.44); Carbon Dioxide 29 mmol/L (22-29); Chloride 105 mmol/L (98-107); Estimated GFR-MDRD 87; Globulin 2.6 g/dL (2.4-3.5); Glucose 84 mg/dL (70-105); Potassium 3.4 mmol/L (3.5-5.1); Protein, Total 6.2 g/dL (6.0-8.3); Sodium 139 mmol/L (136-145)
--- NOTE | 2019-11-15 14:42 | PDOC.HOSPP ---
- Subjective Encounter Date: 11/15/19 Encounter Time: 10:15 Subjective: pt up in bed continues to be nauseated. - Objective Vital Signs & Weight: Vital Signs (12 hours) Temp Pulse Resp BP Pulse Ox 11/15/19 09:00 98.1 F 75 16 115/83 98 11/15/19 05:45 97.6 F 74 16 124/83 98 Weight Weight 178 lb 0.02 oz I&O: 11/14/19 11/15/19 11/16/19 06:59 06:59 06:59 Intake Total 500 150 Balance 500 150 Result Diagrams: 11/15/19 12:26 11/15/19 12:26 Hospitalist ROS - Review of Systems Respiratory: denies: cough, dry, shortness of breath, hemoptysis, SOB with excertion, pleuritic pain, sputum, wheezing, other Cardiovascular: denies: chest pain, palpitations, orthopnea, paroxysmal noc. dyspnea, edema, light headedness, other Gastrointestinal: reports: nausea, vomiting Genitourinary: denies: dysuria, frequency, incontinence, hematuria, retention, other Musculoskeletal: denies: neck pain, shoulder pain, arm pain, back pain, hand pain, leg pain, foot pain, other - Medication Medications: Active Medications Generic Name Dose Route Start Last Admin Trade Name Freq PRN Reason Stop Dose Admin Amiodarone HCl 200 mg 11/13/19 09:00 11/15/19 09:51 Cordarone PO 200 mg DAILY MANUELA Administration Atorvastatin Calcium 40 mg 11/13/19 21:00 11/14/19 19:53 Lipitor PO 40 mg HS MANUELA Administration Clonazepam 1 mg 11/13/19 09:00 11/15/19 09:50 Klonopin PO 1 mg BID MANUELA Administration Clopidogrel Bisulfate 75 mg 11/13/19 09:00 11/15/19 09:51 Plavix PO 75 mg DAILY MANUELA Administration Cyclobenzaprine HCl 10 mg 11/14/19 15:00 11/15/19 09:51 Flexeril PO 11/15/19 15:00 10 mg TID MANUELA Administration Dicyclomine HCl 10 mg 11/13/19 09:00 11/15/19 09:50 Bentyl PO 10 mg DAILY MANUELA Administration Diltiazem HCl 360 mg 11/15/19 09:00 11/15/19 09:50 Cardizem Cd PO 360 mg DAILY MANUELA Administration Levothyroxine Sodium 100 mcg 11/14/19 06:00 11/15/19 05:44 Synthroid PO 100 mcg 0600 MANUELA Administration Lidocaine 1 patch 11/14/19 18:00 11/14/19 18:47 Lidoderm 5% Patch TD 1 patch 1800 MANUELA Administration Metoclopramide HCl 10 mg 11/15/19 12:00 11/15/19 12:19 Reglan IVP 10 mg 0400,1200,2000 MANUELA Administration Metoprolol Succinate 200 mg 11/15/19 09:00 11/15/19 09:51 Toprol Xl PO 200 mg DAILY MANUELA Administration Miscellaneous Medication 1 each 11/15/19 06:00 11/15/19 05:44 Lidocaine Patch Removal TOP 1 each 06 MANUELA Administration Ondansetron HCl 4 mg 11/12/19 18:22 11/14/19 18:22 Zofran IVP 4 mg Q6H PRN Administration Nausea/Vomiting Pantoprazole Sodium 40 mg 11/15/19 09:00 11/15/19 09:50 Protonix PO 40 mg DAILY MANUELA Administration Rivaroxaban 20 mg 11/15/19 06:00 11/15/19 05:44 Xarelto PO 20 mg 0600 MANUELA Administration Sertraline HCl 200 mg 11/13/19 09:00 11/15/19 09:51 Zoloft PO 200 mg DAILY MANUELA Administration Temazepam 30 mg 11/13/19 21:00 11/14/19 19:54 Restoril PO 30 mg HS MANUELA Administration Tramadol HCl 50 mg 11/14/19 17:51 11/15/19 12:25 Ultram PO 50 mg Q8H PRN Administration Pain 4-6 - Exam Neck: negative: supple, symmetric, no JVD, no thyromegaly, no lymphadenopathy, no carotid bruit, JVD Heart: negative: RRR, no murmur, no gallops, no rubs, normal peripheral pulses, irregular, diminshed peripheral pulses, murmur present, II/IV, III/IV Respiratory: negative: CTAB, no wheezes, no rales, no ronchi, normal chest expansion, no tachypnea, normal percussion, rales, rhonchi, tachypneic, wheezes Gastrointestinal: soft, normal bowel sounds Gastrointestinal - other findings: pain to right flank area Hosp A/P (1) Pain in the abdomen Code(s): R10.9 - UNSPECIFIED ABDOMINAL PAIN Status: Acute (2) Atrial fibrillation Code(s): I48.91 - UNSPECIFIED ATRIAL FIBRILLATION Status: Acute (3) Bipolar 1 disorder Code(s): F31.9 - BIPOLAR DISORDER, UNSPECIFIED Status: Acute (4) CAD (coronary artery disease) Code(s): I25.10 - ATHSCL HEART DISEASE OF [place] CORONARY ARTERY W/O ANG PCTRS Status: Acute (5) HLD (hyperlipidemia) Code(s): E78.5 - HYPERLIPIDEMIA, UNSPECIFIED Status: Acute - Plan will stop abx, hida normal, lfts normal. pt's pain is all the around her right flank and paraspinal area and her right upper quadrant. unlikely due to gallbladder disease. i stopped her morphine and she got upset and wanted me to put her back on the morphine. I explained to her that morphine will not be helpful. she may need steroid or nsaids. will give her two doses of morphine and lidoderm patch. 11/14 pt tried to eat breakfast and vomited. Not sure if this is self inducted. I will consult gi. she is on ppi. Her lipase is normal. Her lfts are normal. I will stop all pain meds. will get [facility] given her psy hx. spoke with [facility] about her and she has no worsening psy disorder and she is not suicidal. gi will do a egd and colonoscopy. will hold xarelto.
[2019-11-15] MEDS: Lidocaine 5% Patch TD SCH (17:24)
--- NOTE | 2019-11-15 19:44 | CON ---
DATE OF CONSULTATION: 11/15/2019 REQUESTING PHYSICIAN: Dr. Meléndez. REASON FOR CONSULTATION: Nausea and vomiting. HISTORY OF PRESENT ILLNESS: Ansley Kelly is a 58-year-old woman, who was admitted to the hospital 3 days ago. She has a history significant for congestive heart failure and coronary artery disease. She has atrial fibrillation. She is on Plavix and Xarelto. She also has a history of bipolar disorder and right ureteral reconstruction. She tells me that about five years ago, she was diagnosed with peptic ulcer disease and H pylori and was treated for this. She cannot recall if it was a gastric or duodenal ulcer. She also tells me that she has had multiple colonoscopies in the past with many polyps removed. Her last colonoscopy was about five years ago. She says she had 25 polyps removed and that a two-year followup was recommended, but she never went through with that. At any rate, she says that for several years off and on, she will have bouts of right upper quadrant pain and nausea lasting a few days at a time, but now for the past month, symptoms have been worse. She has intermittently had postprandial vomiting, especially for the past 4-5 days, she says she has had emesis with just about every meal. This is always associated with right upper quadrant or epigastric pain. It will occur with most anything solid that she eats. After vomiting, she will temporarily feel a lot better until the next time. She has lost about 12 pounds over the past few months unintentionally. There was never any blood in the emesis. As far as her bowel movements go, she has a tendency toward diarrhea over the past few months, which she describes as 2-3 loose bowel movements per day with no blood. Upon presentation here on 11/12/2019, it was thought that perhaps she might have a urinary tract infection. Initial ultrasound showed gallbladder sludge, but no stones, normal common bile duct, and mild right-sided hydronephrosis, but a CT of the abdomen demonstrated no evidence of hydronephrosis at all, no other acute processes. She then had a HIDA scan, which was also normal. Lipase and LFTs have all been normal. Really evaluation has been unrevealing so far with regard to her pain and vomiting. Notably, the patient says that she has been taking a lot of ibuprofen and naproxen recently for periodontal disease. There is some concern that the patient may be exhibiting drug seeking behavior. She says that morphine is the only thing that will work for her pain. REVIEW OF SYSTEMS: Full review of systems including constitutional, head, eyes, ears, nose, throat, GI, , cardiovascular, respiratory, musculoskeletal, and neurologic systems are negative except as noted in the HPI. PAST MEDICAL HISTORY: Congestive heart failure; pacemaker placement; atrial fibrillation, on Xarelto; coronary artery disease, status post stent, on Plavix; hypertension; hyperlipidemia; hypothyroidism; GERD; bipolar disorder; hysterectomy; appendectomy; right ureteral reconstruction; peptic ulcer disease, five years ago; H pylori, treated 5 years ago; and colon polyps, reporting 25 polyps removed 5 years ago on her last colonoscopy. FAMILY HISTORY: She reports multiple family members have gallbladder issues. Her father and mother both had colon polyps. SOCIAL HISTORY: No smoking, alcohol, or drug use. ALLERGIES: CECLOR, PENICILLIN, BETADINE, SULFA, AND TETRACYCLINES. INPATIENT MEDICATIONS: 1. Tylenol p.r.n. 2. Amiodarone. 3. Aspirin 81 mg daily. 4. Atorvastatin. 5. Clonazepam 1 mg b.i.d. 6. Plavix 75 mg daily. 7. Bentyl 10 mg p.o. daily. 8. Diltiazem. 9. Levothyroxine. 10. Lidocaine patch. 11. Reglan 10 mg IV q.6 hours. 12. Metoprolol. 13. Morphine p.r.n. 14. Ondansetron p.r.n. 15. Protonix 40 mg daily. 16. Xarelto 20 mg daily. PHYSICAL EXAMINATION: VITAL SIGNS: Temperature 98.1, pulse 75, blood pressure 115/83, and 98% oxygen saturation on room air. GENERAL: A 58-year-old woman lying in bed comfortably, in no distress. SKIN: No jaundice. No rashes were palpable. HEENT: Eyes, no scleral icterus. Extraocular movements intact. ENT, mucous membranes moist. No oral lesions. LYMPH: No submandibular or supraclavicular lymphadenopathy. Thyroid, nontender to palpation. HEART: Regular rate and rhythm. LUNGS: Clear to auscultation bilaterally. ABDOMEN: Nondistended. Bowel sounds are present. Soft. Tender to palpation in the epigastrium and right upper quadrant. She withdraws to minimal palpation with voluntary guarding, but there is no rebound tenderness. Palpation of the abdomen elsewhere elicits no pain response. EXTREMITIES: No peripheral edema. VESSELS: Radial pulses 2+ bilaterally. NEUROLOGIC: Cranial nerves 2 through 12 intact bilaterally. No focal deficits. LABORATORY STUDIES: WBC 7.7, hemoglobin 11.8, platelets 361. Sodium 138, potassium 3.6, BUN 7, creatinine 0.62, lactic acid 0.8, glucose 83, total bilirubin 0.2, alkaline phosphatase 99, AST 9, ALT less than 7, albumin 3.9, lipase 33. TSH 2.7. Urinalysis negative. Urine drug screen positive for benzodiazepines, opiates, and barbiturates. IMAGING STUDIES: Abdominal ultrasound showed gallbladder sludge, but no stone. Normal common bile duct. Mild right hydronephrosis. CT of the abdomen and pelvis that same date demonstrated no evidence of hydronephrosis. No acute processes. Normal appearing liver, spleen, kidneys, ureters, and bowel. There are surgical clips in the right abdomen. She is post hysterectomy. 11/13/2019, HIDA scan was normal. ASSESSMENT AND PLAN: 1. Right upper quadrant pain. 2. Nausea and vomiting. 3. Chronic diarrhea. 4. History of polyps, reports 25 polyps removed on last colonoscopy five years ago, so she would be overdue for surveillance colonoscopy. 5. Prior history of H pylori and peptic ulcer disease, reports this was treated five years ago. 6. Chronic NSAID use recently. I had a long discussion with the patient that so far imaging and laboratory evaluation has been unrevealing. She does have a small amount of gallbladder sludge, but really no other evidence of biliary etiology with normal HIDA scan, normal LFTs and lipase. I think it is more likely that she has recurrence of gastritis or peptic ulcer disease, particularly with all the nonsteroidal anti-inflammatory drug she has been given. More chronic diarrhea is also a factor. She is overdue for surveillance colonoscopy anyway. I think it would be reasonable to perform diagnostic esophagogastroduodenoscopy and colonoscopy this admission. We are going to have to hold her Xarelto tomorrow and plan for the procedure two days from now. We will have her on a clear liquid diet tomorrow, holding the Xarelto in the meantime, bowel preparation tomorrow evening, with plan for esophagogastroduodenoscopy and colonoscopy the following day. Thank you for the consultation. Please call anytime with questions or concerns. Job ID: [id number]
[2019-11-15] MEDS: Atorvastatin Calcium 40 MG TAB PO SCH (22:01)
[2019-11-15] MEDS: Temazepam 15 MG CAP PO SCH (22:02)
[2019-11-15] MEDS: Acetaminophen 325 MG TAB PO PRN (22:06)
[2019-11-16] MEDS: Metoclopramide HCl 10 MG/2 ML VIAL IVP SCH ×3 (04:09→20:25)
[2019-11-16] MEDS: Levothyroxine Sodium 100 MCG TAB PO SCH (04:10)
[2019-11-16] MEDS: Lidocaine Patch Removal TOP SCH (06:45)
[2019-11-16] MEDS: clonazePAM 1 MG TAB PO SCH ×2 (08:21→20:30)
[2019-11-16] MEDS: Amiodarone 200 MG TAB PO SCH (08:22)
[2019-11-16] MEDS: Dicyclomine 10 MG CAP PO SCH (08:22)
--- NOTE | 2019-11-16 08:50 | PRG ---
DATE OF SERVICE: 11/16/2019 SUBJECTIVE: The patient reports having had a rough night last night due to right upper quadrant pain and nausea. There was no vomiting. She has otherwise been stable. Xarelto is being held today. She still desires to proceed with EGD and colonoscopy tomorrow. OBJECTIVE: VITAL SIGNS: Temperature 98.3, pulse 68, blood pressure 92/63, and 98% oxygen saturation on room air. GENERAL: No acute distress. HEART: Regular rate and rhythm. LUNGS: Clear to auscultation bilaterally. ABDOMEN: Bowel sounds are present. The abdomen is soft, tender to palpation in the upper abdomen. No guarding or rebound tenderness. EXTREMITIES: No peripheral edema. LABORATORY STUDIES: No new labs this morning. ASSESSMENT AND PLAN: 1. Right upper quadrant/epigastric pain. 2. Nausea and vomiting. 3. Chronic diarrhea. 4. History of polyps, reporting 25 polyps removed on last colonoscopy 5 years ago. 5. Prior history of Helicobacter pylori and peptic ulcer disease, reports this was treated 5 years ago. 6. Chronic NSAID use recently. Xarelto is being held today. We will administer bowel preparation this evening and plan for EGD and colonoscopy tomorrow. She remains on PPI in the meantime. Further recommendations to depend on findings. Job ID: [id number]
[2019-11-16] MEDS: Clopidogrel Bisulfate 75 MG TAB PO SCH (09:57)
[2019-11-16] MEDS: HYDROcodone/Acetaminophen 5/325 mg Tablet PO PRN ×3 (12:42→20:22)
[2019-11-16] MEDS ORDERED: Electrolyte Replacement Protoc 1 EACH EACH FS SCH (17:00)
[2019-11-16] MEDS ORDERED: GoLYTELY 4,000 ml Bottle PO SCH (17:00)
--- NOTE | 2019-11-16 17:10 | PDOC.HOSPP ---
- Subjective Encounter Date: 11/16/19 Encounter Time: 09:00 Subjective: no overnight events. this morning, persistent RUQ pain. otherwise no complaints. Pending EGD and colonoscopy - Objective Vital Signs & Weight: Vital Signs (12 hours) Temp Pulse Resp BP Pulse Ox 11/16/19 15:39 98.5 F 62 14 134/89 95 11/16/19 10:49 98.5 F 67 14 118/83 97 11/16/19 08:00 98 11/16/19 07:00 97.8 F 64 18 125/90 98 Weight Weight 178 lb 0.02 oz I&O: 11/15/19 11/16/19 11/17/19 06:59 06:59 06:59 Intake Total 150 Balance 150 Result Diagrams: 11/15/19 12:26 11/15/19 12:26 Hospitalist ROS - Review of Systems Constitutional: denies: fever, chills, sweats Respiratory: denies: cough, shortness of breath Cardiovascular: denies: chest pain, palpitations, orthopnea Gastrointestinal: reports: nausea, abdominal pain. denies: vomiting, diarrhea - Medication Medications: Active Medications Generic Name Dose Route Start Last Admin Trade Name Freq PRN Reason Stop Dose Admin Acetaminophen 650 mg 11/12/19 18:22 11/15/19 22:06 Tylenol PO 650 mg Q4H PRN Administration Headache/Fever/Mild Pain (1-3) Hydrocodone Bitart/Acetaminophen 1 tab 11/16/19 12:15 11/16/19 16:34 [place] 5/325 PO 1 tab Q4H PRN Administration Moderate to Severe Pain (6-10) Amiodarone HCl 200 mg 11/13/19 09:00 11/16/19 08:22 Cordarone PO 200 mg DAILY MANUELA Administration Atorvastatin Calcium 40 mg 11/13/19 21:00 11/15/19 22:01 Lipitor PO 40 mg HS MANUELA Administration Clonazepam 1 mg 11/13/19 09:00 11/16/19 08:21 Klonopin PO 1 mg BID MANUELA Administration Dicyclomine HCl 10 mg 11/13/19 09:00 11/16/19 08:22 Bentyl PO 10 mg DAILY MANUELA Administration Diltiazem HCl 360 mg 11/15/19 09:00 11/16/19 08:21 Cardizem Cd PO 360 mg DAILY MANUELA Administration Levothyroxine Sodium 100 mcg 11/14/19 06:00 11/16/19 04:10 Synthroid PO 100 mcg 0600 MANUELA Administration Lidocaine 1 patch 11/14/19 18:00 11/15/19 17:24 Lidoderm 5% Patch TD 1 patch 1800 MANUELA Administration Metoclopramide HCl 10 mg 11/15/19 12:00 11/16/19 12:43 Reglan IVP 10 mg 0400,1200,2000 MANUELA Administration Metoprolol Succinate 200 mg 11/15/19 09:00 11/16/19 08:21 Toprol Xl PO 200 mg DAILY MANUELA Administration Miscellaneous Medication 1 each 11/15/19 06:00 11/16/19 06:45 Lidocaine Patch Removal TOP 1 each 0600 MANUELA Administration Ondansetron HCl 4 mg 11/12/19 18:22 11/14/19 18:22 Zofran IVP 4 mg Q6H PRN Administration Nausea/Vomiting Pantoprazole Sodium 40 mg 11/15/19 09:00 11/16/19 08:21 Protonix PO 40 mg DAILY MANUELA Administration Rivaroxaban 20 mg 11/15/19 06:00 11/15/19 05:44 Xarelto PO 20 mg 0600 MANUELA Administration Sertraline HCl 200 mg 11/13/19 09:00 11/16/19 08:21 Zoloft PO 200 mg DAILY MANUELA Administration Temazepam 30 mg 11/13/19 21:00 11/15/19 22:02 Restoril PO 30 mg HS MANUELA Administration - Exam General Appearance: NAD, awake alert Eye: anicteric sclera Neck: no JVD Heart: RRR, no murmur, no gallops, no rubs Respiratory: CTAB, no wheezes, no rales, no ronchi Gastrointestinal: soft, non-distended, normal bowel sounds Gastrointestinal - other findings: RUQ tenderness with deep paplation Extremities: no edema Psychiatric: normal affect, normal behavior, A&O x 3 Hosp A/P - Plan #RUQ pain -considering severe pain and relatively benign exam, unremarkable labs may be amphetamine-induced mesenteric vasospasm/ischemia or renal ischemia; less likely ischemic colitis -GI onboard, pending colonoscopy and EGD #afib -hold eliquis #CAD s/p stent placement -more than a year ago -hold plavix
[2019-11-16] MEDS ORDERED: Electrolyte Replacement Protocol FS PRN (17:15)
[2019-11-16] MEDS: Lidocaine 5% Patch TD SCH (17:47)
[2019-11-16] MEDS: Atorvastatin Calcium 40 MG TAB PO SCH (20:29)
[2019-11-16] MEDS: Temazepam 15 MG CAP PO SCH (21:32)
[2019-11-17] MEDS: HYDROcodone/Acetaminophen 5/325 mg Tablet PO PRN ×6 (00:38→22:27)
[2019-11-17] MEDS: Metoclopramide HCl 10 MG/2 ML VIAL IVP SCH ×3 (04:46→20:10)
[2019-11-17] MEDS: Levothyroxine Sodium 100 MCG TAB PO SCH (04:46)
[2019-11-17] MEDS: Lidocaine Patch Removal TOP SCH (06:09)
[2019-11-17] MEDS ORDERED: Ketamine 50 MG/ML (10ML VIAL) ONE (07:36)
[2019-11-17 07:49] LABS: Anion Gap 10 mmol/L (10-20); BUN (Urea Nitrogen) 7 mg/dL (9.8-20.1); Calc. Creatinine Clearance 111 mL/min (70-130); Calcium 8.6 mg/dL (7.8-10.44); Carbon Dioxide 29 mmol/L (22-29); Chloride 104 mmol/L (98-107); Estimated GFR-MDRD 84; Glucose 79 mg/dL (70-105); Magnesium 1.9 mg/dL (1.6-2.6); Potassium 3.5 mmol/L (3.5-5.1); Sodium 139 mmol/L (136-145)
[2019-11-17] MEDS ORDERED: PROPOFOL 200 MG/20 ML VIAL ONE (09:35)
[2019-11-17] MEDS: clonazePAM 1 MG TAB PO SCH ×2 (09:45→20:10)
[2019-11-17] MEDS: Amiodarone 200 MG TAB PO SCH (09:45)
[2019-11-17] MEDS: Dicyclomine 10 MG CAP PO SCH ×4 (09:45→22:27)
--- NOTE | 2019-11-17 09:58 | OP ---
DATE OF PROCEDURE: 11/17/2019 SIGN DESIGNER SURGEON: None. PROCEDURES PERFORMED: 1. Esophagogastroduodenoscopy, diagnostic. 2. Colonoscopy with snare polypectomy. INDICATIONS: 1. Right upper quadrant pain. 2. Nausea and vomiting. 3. Diarrhea. 4. Reported history of colon polyps, reporting 25 polyps, removed on last colonoscopy 5 years ago. MEDICATIONS: See Anesthesia record. FINDINGS: After discussion of the risks, benefits, and alternatives of the procedure, informed consent was obtained and witnessed. Pre-endoscopic cardiopulmonary examination was satisfactory. Time-out was performed before sedation was achieved. Sedation was achieved with Anesthesia assistance in the endoscopy unit. A Pentax adult upper endoscope was placed into the oropharynx and passed through the cricopharyngeus under direct visualization. The esophageal mucosa appeared normal throughout with a normal-appearing Z-line. The endoscope was advanced into the stomach. Forward and retroflexed views of the entire gastric mucosa were obtained. The gastric mucosa appeared completely normal throughout. There is a pancreatic rest in the gastric antrum with characteristic umbilication. No associated erosion or inflammation. The endoscope was passed through the pylorus into the first and second portions of the duodenum, which also appeared normal. The upper endoscope was completely withdrawn and the patient was repositioned. Digital rectal exam was performed, which showed some small external hemorrhoids. A Pentax adult colonoscope was inserted into the anus and passed forward to the cecum in the usual fashion. The cecal base was identified by the appendiceal orifice as well as the ileocecal valve. The terminal ileum was intubated and the ileal mucosa appeared normal. The colonoscope was slowly withdrawn in a gradual and circumferential manner with careful examination of the entire colonic mucosa. The quality of the prep was fair. There was a single 3-mm polyp in the transverse colon, which was completely removed with cold snare, but not retrieved for pathology. The remainder of the colonic mucosa appeared normal throughout. Retroflexion in the rectum demonstrated no abnormalities. The colonoscope was completely withdrawn and the patient allowed to recover. The patient tolerated the procedure well. There were no immediate postprocedure complications. IMPRESSION: 1. Pancreatic rest in the gastric antrum, benign appearance. 2. Otherwise normal esophagogastroduodenoscopy. 3. 3-mm transverse colon polyp, completely removed with cold snare, not retrieved. 4. Otherwise normal colonoscopy to the terminal ileum. 5. Her abdominal pain appears to be functional in nature. RECOMMENDATIONS: 1. Advance diet. 2. Repeat colonoscopy in 5 years for surveillance. 3. Trial dicyclomine 10 to 20 mg 3 times daily as needed for abdominal cramping pain. 4. Xarelto can be resumed. 5. No further gastrointestinal workup is planned this admission. 6. GI will sign off. Please call back with any questions or concerns. Job ID: [id number]
[2019-11-17] MEDS: Acetaminophen 325 MG TAB PO PRN ×2 (12:49→20:10)
--- NOTE | 2019-11-17 17:21 | PDOC.HOSPP ---
- Subjective Encounter Date: 11/17/19 Encounter Time: 09:00 Subjective: no overnight events. this morning, after EGD and colonoscopy, complaining of diffuse abominla pain. Otherwise no complaints - Objective Vital Signs & Weight: Vital Signs (12 hours) Temp Pulse Resp BP Pulse Ox 11/17/19 15:31 98.6 F 68 14 95/64 93 L 11/17/19 06:12 98.2 F 74 18 126/89 97 Weight Weight 178 lb 0.02 oz I&O: 11/16/19 11/17/19 11/18/19 06:59 06:59 06:59 Intake Total 711 Balance 711 Result Diagrams: 11/15/19 12:26 11/17/19 07:13 Hospitalist ROS - Review of Systems Constitutional: denies: fever, chills Respiratory: denies: cough, dry, shortness of breath Cardiovascular: denies: chest pain, palpitations, orthopnea Gastrointestinal: reports: abdominal pain. denies: nausea, vomiting Genitourinary: denies: dysuria, frequency, hematuria - Medication Medications: Active Medications Generic Name Dose Route Start Last Admin Trade Name Freq PRN Reason Stop Dose Admin Acetaminophen 650 mg 11/12/19 18:22 11/17/19 12:49 Tylenol PO 650 mg Q4H PRN Administration Headache/Fever/Mild Pain (1-3) Hydrocodone Bitart/Acetaminophen 1 tab 11/16/19 12:15 11/17/19 14:15 [place] 5/325 PO 1 tab Q4H PRN Administration Moderate to Severe Pain (6-10) Amiodarone HCl 200 mg 11/13/19 09:00 11/17/19 09:45 Cordarone PO 200 mg DAILY MANUELA Administration Atorvastatin Calcium 40 mg 11/13/19 21:00 11/16/19 20:29 Lipitor PO 40 mg HS MANUELA Administration Clonazepam 1 mg 11/13/19 09:00 11/17/19 09:45 Klonopin PO 1 mg BID MANUELA Administration Dicyclomine HCl 10 mg 11/13/19 09:00 11/17/19 09:45 Bentyl PO 10 mg DAILY MANUELA Administration Dicyclomine HCl 10 mg 11/17/19 13:00 11/17/19 12:49 Bentyl PO 10 mg QID MANUELA Administration Diltiazem HCl 360 mg 11/15/19 09:00 11/17/19 09:44 Cardizem Cd PO 360 mg DAILY MANUELA Administration Levothyroxine Sodium 100 mcg 11/14/19 06:00 11/17/19 04:46 Synthroid PO 100 mcg 0600 MANUELA Administration Lidocaine 1 patch 11/14/19 18:00 11/16/19 17:47 Lidoderm 5% Patch TD 1 patch 1800 MANUELA Administration Metoclopramide HCl 10 mg 11/15/19 12:00 11/17/19 12:49 Reglan IVP 10 mg 0400,1200,2000 MANUELA Administration Metoprolol Succinate 200 mg 11/15/19 09:00 11/17/19 06:17 Toprol Xl PO 200 mg DAILY MANUELA Administration Miscellaneous Medication 1 each 11/15/19 06:00 11/17/19 06:09 Lidocaine Patch Removal TOP 1 each 0600 MANUELA Administration Ondansetron HCl 4 mg 11/12/19 18:22 11/14/19 18:22 Zofran IVP 4 mg Q6H PRN Administration Nausea/Vomiting Pantoprazole Sodium 40 mg 11/15/19 09:00 11/17/19 09:45 Protonix PO 40 mg DAILY MANUELA Administration Rivaroxaban 20 mg 11/15/19 06:00 11/15/19 05:44 Xarelto PO 20 mg 0600 MANUELA Administration Sertraline HCl 200 mg 11/13/19 09:00 11/17/19 09:44 Zoloft PO 200 mg DAILY MANUELA Administration Temazepam 30 mg 11/13/19 21:00 11/16/19 21:32 Restoril PO 30 mg HS MANUELA Administration - Exam General Appearance: awake alert General - other findings: in moderate distress due to abdominal pain Eye: PERRL, anicteric sclera Neck: no JVD Heart: RRR, no murmur, no gallops, no rubs Respiratory: CTAB, no wheezes, no rales, no ronchi Gastrointestinal: soft Gastrointestinal - other findings: diffusely tender Extremities: no edema Psychiatric: normal affect, normal behavior, A&O x 3 Hosp A/P - Plan #RUQ pain -EGD and colonpscopy unrevealing; polypectomy performed; repet colonoscopy in 5 years -started dicyclomine as per GI #afib -restart eliquis #CAD s/p stent placement -more than a year ago -restart plavix; should readdress with manager produce regarding indication to continue plavix full code ELOS: 1 night
[2019-11-17] MEDS: Lidocaine 5% Patch TD SCH (18:21)
[2019-11-17] MEDS: Atorvastatin Calcium 40 MG TAB PO SCH (20:10)
[2019-11-17] MEDS: Temazepam 15 MG CAP PO SCH (22:26)
[2019-11-18 02:37] VITALS: TEMP 98.3
[2019-11-18] MEDS: HYDROcodone/Acetaminophen 5/325 mg Tablet PO PRN ×2 (02:52→06:54)
[2019-11-18] MEDS: Metoclopramide HCl 10 MG/2 ML VIAL IVP SCH (05:26)
[2019-11-18] MEDS: Levothyroxine Sodium 100 MCG TAB PO SCH (05:27)
[2019-11-18] MEDS: Rivaroxaban 10 MG TAB PO SCH (05:28)
[2019-11-18] MEDS: Lidocaine Patch Removal TOP SCH (05:39)
[2019-11-18 07:32] VITALS: BP 124/84
[2019-11-18] MEDS: Amiodarone 200 MG TAB PO SCH (08:40)
[2019-11-18] MEDS: clonazePAM 1 MG TAB PO SCH (08:40)
[2019-11-18] MEDS: Dicyclomine 10 MG CAP PO SCH ×2 (08:58→09:01)
[2019-11-18] MEDS ORDERED: Clopidogrel Bisulfate 75 MG TAB PO SCH (09:00)
--- NOTE | 2019-11-18 12:39 | DIS ---
DATE OF ADMISSION: 11/12/2019 DATE OF DISCHARGE: 11/18/2019 PRIMARY CARE PHYSICIAN: Yadira Hood. DISCHARGE DISPOSITION: Home. PRIMARY DISCHARGE DIAGNOSIS: Right upper quadrant discomfort, suspecting from biliary dyskinesia. SECONDARY DISCHARGE DIAGNOSES: Coronary artery disease, atrial fibrillation, bipolar disorder, congestive heart failure, hypertension, dyslipidemia, hypothyroidism. PRIMARY PROCEDURE/OPERATION: None. RADIOLOGICAL INVESTIGATION: Abdominal ultrasound showed gallbladder sludge without any stone. Abdomen and pelvis CT scan showed no hydronephrosis. SIGNIFICANT LABORATORY DATA: WBC 8.9, hemoglobin 11.5, platelets 365. Sodium 138, creatinine 0.62. LFT normal. TSH 2.71. COVID-19 negative. Urinalysis normal. DISCHARGE MEDICATIONS: The patient will continue all her previous medications. 1. Fosamax 70 mg every week. 2. Amiodarone 200 mg daily. 3. Norvasc 5 mg daily. 4. Aspirin 81 mg daily. 5. Lipitor 40 mg p.o. at bedtime. 6. Clonazepam 1 mg p.o. b.i.d. 7. Plavix 75 mg p.o. daily. 8. Bentyl 10 mg p.o. daily. 9. Cardizem CD 360 mg p.o. daily. 10. Levothyroxine 100 mcg p.o. daily. 11. Lisinopril 40 mg daily. 12. Toprol-XL 200 mg p.o. daily. 13. Omeprazole 40 mg p.o. daily. 14. Xarelto 20 mg daily. 15. Zoloft 200 mg p.o. daily. 16. Temazepam 30 mg p.o. at bedtime. CONTRAINDICATION: None. CODE STATUS: Full code. INPATIENT GLASS CUTTING MACHINE FEEDER: None. ALLERGIES: CEFACLOR, PENICILLIN. DISCHARGE PLAN: Post hospital, the patient is instructed to follow up with Cardiology as well as patient is instructed to follow up with primary care physician in 1 week for outpatient referral to General Surgery for possible evaluation for lap cholecystectomy. HOSPITAL COURSE: 58-year-old female who was admitted by Sumanth Gonzalez. Please see his H and P for further details. The patient was admitted for right upper quadrant abdominal pain. On admission, the patient had ultrasound of right upper quadrant, which showed gallbladder sludge without any acute process. CT abdomen and pelvis also did not show any hydronephrosis, which was found on ultrasound. Her LFT was normal. Her examination is out of proportion to the patient's pain. COVID-19 is negative. The patient already had several HIDA scans at other hospital and we are doing another HIDA scan while in hospital. This patient does not have any clinical indication for antibiotic therapy and that is why we are discontinuing the Cipro and Flagyl on discharge. While in hospital, she was given IV fluid and Cipro and Flagyl, but patient does not have any evidence of infection and does not need any antibiotic therapy. The patient will need outpatient followup with primary care physician and referral to Gastroenterology for possible need of laparoscopic cholecystectomy as an outpatient basis. Before surgery, patient will need cardiac clearance as well. At this point, there is no acute emergency for this procedure and that is why surgery can be done as an outpatient basis if needed. The patient is seen and examined at bedside today. Once HIDA scan is done, then we will consider discharging her home later on today. Job ID: [id number]
--- NOTE | 2019-11-18 23:52 | DIS ---
DATE OF ADMISSION: 11/12/2019 DATE OF DISCHARGE: 11/18/2019 HOSPITAL COURSE: Ms. Kelly is a 58-year-old female with a medical history of appendectomy, right ureteral reconstruction, and coronary artery disease, who presented with worsening right upper quadrant pain. She has had on and off pain for several years. However, it has worsened in the past month and was associated with weight loss. LFTs and bilirubin were normal. EGD was normal and colonoscopy showed a 3 mm polyp that was snared. Per GI, the patient was started on dicyclomine and her pain significantly improved. She was diagnosed with functional abdominal pain and on the day of discharge, her pain completely resolved. PHYSICAL EXAMINATION: VITAL SIGNS: Blood pressure 124/84, pulse 67, respiratory rate 18, oxygen saturation 96% on room air, temperature 98.3. GENERAL: Lying comfortably in bed. Awake and alert. Morbidly obese. HEENT: Normocephalic, atraumatic. CARDIAC: Regular rate and rhythm. No murmurs, gallops, or rubs. LUNGS: Clear to auscultation bilaterally. No wheezing, rales, or rhonchi. ABDOMEN: Soft, nondistended, nontender. Normal bowel sounds. PSYCHIATRIC: Proper mood. Flat affect. Alert and oriented x3. MEDICATIONS: New medications: 1. Tylenol 650 p.o. q.4 hours p.r.n. pain. Continued medications: 1. Plavix. 2. Xarelto. 3. Alendronate. 4. Atorvastatin. 5. Temazepam. 6. Omeprazole. 7. Aspirin. 8. Diltiazem. 9. Sertraline. 10. Clonazepam. 11. Lisinopril. 12. Amlodipine. 13. Levothyroxine. 14. Toprol. 15. Amiodarone. Modified medications: Dicyclomine was changed from 10 mg daily to 10 mg q.i.d. p.r.n. abdominal pain. Job ID: [id number]
== END 2019-11-18 10:43 | disposition home or self-care (01) | DRG 392 ==
LOC: ERS 12:21 → SJJU 16:06 → OBSVTOIN 16:06
PROVIDERS: ADMIT Family Medicine; ATTEND Family Medicine
PROC: 0DJ08ZZ Inspection of Upper Intestinal Tract, Via Natural or Artificial Opening Endoscopic (ICD-10-PCS; principal; 2019-11-17)
PROC: 0DBL8ZZ Excision of Transverse Colon, Via Natural or Artificial Opening Endoscopic (ICD-10-PCS; 2019-11-17)
DX: R10.9 Unspecified abdominal pain (principal); I25.10 Atherosclerotic heart disease of native coronary artery without angina pectoris; I48.91 Unspecified atrial fibrillation; F31.9 Bipolar disorder, unspecified; I11.0 Hypertensive heart disease with heart failure; I50.9 Heart failure, unspecified; E78.5 Hyperlipidemia, unspecified; F41.9 Anxiety disorder, unspecified; K63.5 Polyp of colon; K52.9 Noninfective gastroenteritis and colitis, unspecified; E03.9 Hypothyroidism, unspecified; Z95.0 Presence of cardiac pacemaker; Z90.710 Acquired absence of both cervix and uterus; Z88.0 Allergy status to penicillin; Z88.1 Allergy status to other antibiotic agents; Z88.2 Allergy status to sulfonamides; Z88.8 Allergy status to other drugs, medicaments and biological substances; Z79.82 Long term (current) use of aspirin; Z79.51 Long term (current) use of inhaled steroids; Z79.899 Other long term (current) drug therapy; Z79.01 Long term (current) use of anticoagulants; Z95.5 Presence of coronary angioplasty implant and graft; Z90.49 Acquired absence of other specified parts of digestive tract; Z79.890 Hormone replacement therapy
CPT/HCPCS: 36415; 74176; 76705; 78227; 80048; 80053; 80306; 81003; 83605; 83690; 83735; 84443; 84484; 85025; 87635; 93005; 96361; 96365; 96366; 96367; 96374; 96375; 96376; A9537; C9113; G0378; J0744; J1200; J2270; J2405; J2704; J2765; U0003

== ENCOUNTER 2020-01-13 09:51 | Inpatient (IN) | payer MEDICARE, OTHER ==
[~2020-01-13 09:51] MED LIST changes: -ISOVUE-370 76%-LOCM 1 ML ONE; +Iopamidol-370 76% 500 ML 1 ML ONE
[2020-01-13 10:39] LABS: #Basophils 0.1 thou/uL (0.0-0.2); #Eosinphils 0.1 thou/uL (0.0-0.7); #Lymphocytes 3.2 thou/uL (1.20-3.40); #Monocytes 0.7 thou/uL (0.11-0.59); %Basophils 0.7 % (0.0-1.0); %Eosinophils 0.9 % (0.0-10.0); %Lymphocytes 22.6 % (21.0-51.0); %Monocytes 4.9 % (0.0-10.0); %Neutrophils 70.9 % (42.0-75.0); Mean Corpuscular HGB CONC 32.9 g/dL (32.0-36.0); Mean Corpuscular Hemoglobin 29.1 pg (27.0-31.0); Mean Corpuscular Volume 88.4 fL (78.0-98.0); Platelet Count 431 thou/uL (130-400); RBC Distribution Width 13.4 % (11.5-14.5); Red Blood Cell (RBC) Count 5.15 mill/uL (4.20-5.40); White Blood Cell (WBC) Count 14.1 thou/uL (4.8-10.8)
--- NOTE | 2020-01-13 10:46 | RAD ---
Exam: Chest one view HISTORY:Injury. Pain. Comparison: 04/22/2019 FINDINGS: Cardiac silhouette:Normal Pacing device: Stable left-sided dual-lead transvenous pacemaker Aorta: Unremarkable Pulmonary vessels: Normal Costophrenic angles: Clear LUNGS: No masses or consolidation. Pneumothorax: None Osseous abnormalities: None IMPRESSION: No acute cardiopulmonary process.
[2020-01-13 11:03] LABS: ALT (SGPT) 11 U/L (8-55); AST (SGOT) 14 U/L (5-34); Albumin 4.2 g/dL (3.5-5.0); Alkaline Phosphatase 127 U/L (40-110); Anion Gap 16 mmol/L (10-20); BUN (Urea Nitrogen) 15 mg/dL (9.8-20.1); Bilirubin, Total 0.3 mg/dL (0.2-1.2); Calc. Creatinine Clearance 0 mL/min (70-130); Calcium 9.4 mg/dL (7.8-10.44); Carbon Dioxide 20 mmol/L (22-29); Chloride 101 mmol/L (98-107); Estimated GFR-MDRD 58; Globulin 3.7 g/dL (2.4-3.5); Glucose 120 mg/dL (70-105); Potassium 4.3 mmol/L (3.5-5.1); Protein, Total 7.9 g/dL (6.0-8.3); Sodium 133 mmol/L (136-145)
--- NOTE | 2020-01-13 13:18 | CT ---
CT arteriogram chest with IV contrast and 3-D imaging HISTORY: Syncope. Dyspnea. FINDINGS: There is good contrast opacification pulmonary arteries and thoracic aorta with normal bran samanta of the great vessels at the aortic arch. Left subclavian cardiac electronic device is in place. Coronary artery stent evident. No pleural fluid, lobar consolidation, pneumothorax, or pleural fluid. No mediastinal adenopathy. Ron cified granuloma at the right posterior costophrenic angle is consistent with healed granulomatous disease. IMPRESSION : No evidence of pulmonary embolus or other acute abnormality.
[2020-01-13] MEDS ORDERED: Sodium Chloride 0.9% 1,000 ML IV SCH (17:30)
[2020-01-13] MEDS ORDERED: Ondansetron ODT 4 MG TAB SL PRN (17:30)
[2020-01-13] MEDS ORDERED: Ondansetron PF 4 MG/2 ML Vial IVP PRN (17:30)
[2020-01-13] MEDS ORDERED: Acetaminophen 325 MG TAB PO PRN (17:30)
--- NOTE | 2020-01-13 19:19 | PDOC.HHP ---
Hospitalist HPI - History of Present Illness syncope History of Present Illness: This is a 59 year old female who comes to the ER due to complaints of passing out for the past three days. The patient states that every time she sits up she feels dizzy and lightheaded and then passes out. Yesterday she was on the toilet and her son found her on the ground. She thinks she must have passed out for approximately thirty minutes. She denied chest pain or palpitations prior to this event. This morning she stood up and then fell forward on the ground and passed out. She reported feeling dizzy prior this. She called the ambulance and states when the paramedics were trying to sit her in a chair they were unable and she had to be carried in a body bag. She denies diaphoresis, cough, fevers, chills, abdominal pain, nausea, vomiting or diarrhea. The patient has never had this problem before. She has a history of a pacemaker placed five years ago in [facility]. She has a history of atrial fibrillation and takes amiodarone, metoprolol, amlodipine, lisinopril and xarelto and diltiazem. She did not take any medications this morning but took them yesterday. ED Course: When the patient presented to the ER, she had a blood pressure of 199/117. Labs showed a WBC of 14.1. D-dimer was elevated at 1.02. BMP showed a sodium of 133. EKG showed QT prolongation of 470. CTA chest showed no PE. Chest Xray was normal. When the patient sat up she felt dizzy and lightheaded so 2L of fluid were given with no improvement in symptoms . Orthostatics were done in the ER with blood pressure 143/106 sitting to 83/54 sitting. Patient was symptomatic with this. Hospitalist ROS - Review of Systems Constitutional: denies: fever, chills Eyes: denies: pain, vision change ENT: denies: ear discharge Respiratory: denies: cough, shortness of breath Cardiovascular: denies: chest pain, palpitations, orthopnea Gastrointestinal: denies: nausea, vomiting, abdominal pain Genitourinary: denies: dysuria, frequency, incontinence Musculoskeletal: denies: neck pain, shoulder pain, arm pain Skin: denies: rash, lesions, shoaib Neurological: denies: weakness, numbness - Medication Medications: Active Medications Generic Name Dose Route Start Last Admin Trade Name Freq PRN Reason Stop Dose Admin Sodium Chloride 1,000 mls @ 75 mls/hr 01/13/20 17:30 01/13/20 19:08 Normal Saline 0.9% IV 01/14/20 05:30 1,000 mls .[id number] [facility] Administration Hospitalist History - Past Medical History Other Medical History: Atrial fibrillation Depression Anxiety CHF Hypothyroidism Hypertension - Past Surgical History Other Surgical History: Hysterectomy Right ureter reconstructed Appendectomy Tonsillectomy - Family History Other Family History: Heart problems on mother and fathers side Stroke maternal grandmother Dad had diabetes - Social History Smoking Status: Former smoker (Quit 5 yeras ago) Alcohol: reports: None (drinks one beer every guy) Drugs: reports: none Living Situation: Other (lives with sone and daughter) - Exam General Appearance: NAD, awake alert General - other findings: obese Eye: PERRL, anicteric sclera ENT: normocephalic atraumatic, no oropharyngeal lesions Neck: no JVD Heart: RRR, no murmur, no gallops, no rubs Respiratory: CTAB, no wheezes, no rales, no ronchi Gastrointestinal: soft, non-tender, non-distended, normal bowel sounds Extremities: no cyanosis, no clubbing, no edema Skin: normal turgor, no lesions, no rashes Neurological: cranial nerve grossly intact, normal sensation to touch, no focal deficits, no new deficit Musculoskeletal: normal tone, normal strength, no muscle wasting Psychiatric: normal affect, normal behavior, A&O x 3 Hospitalist Results - Labs Result Diagrams: 01/13/20 10:25 01/13/20 10:25 Lab results: WBC 14.1 thou/uL (4.8-10.8) H 01/13/20 10:25 Hgb 15.0 g/dL (12.0-16.0) 01/13/20 10:25 Hct 45.5 % (36.0-47.0) 01/13/20 10:25 MCV 88.4 fL (78.0-98.0) 01/13/20 10:25 Plt Count 431 thou/uL (130-400) H 01/13/20 10:25 Neutrophils % 70.9 % (42.0-75.0) 01/13/20 10:25 Sodium 133 mmol/L (136-145) L 01/13/20 10:25 Potassium 4.3 mmol/L (3.5-5.1) 01/13/20 10:25 Chloride 101 mmol/L (98-107) 01/13/20 10:25 Carbon Dioxide 20 mmol/L (22-29) L 01/13/20 10:25 BUN 15 mg/dL (9.8-20.1) 01/13/20 10:25 Creatinine 0.99 mg/dL (0.6-1.1) 01/13/20 10:25 Glucose 120 mg/dL (70-105) H 01/13/20 10:25 Calcium 9.4 mg/dL (7.8-10.44) 01/13/20 10:25 Total Bilirubin 0.3 mg/dL (0.2-1.2) 01/13/20 10:25 AST 14 U/L (5-34) 01/13/20 10:25 ALT 11 U/L (8-55) 01/13/20 10:25 Alkaline Phosphatase 127 U/L (40-110) H 01/13/20 10:25 Troponin I Less than 0.010 ng/mL (< 0.028) 01/13/20 10:25 Serum Total Protein 7.9 g/dL (6.0-8.3) 01/13/20 10:25 Albumin 4.2 g/dL (3.5-5.0) 01/13/20 10:25 Hospitalist H&P A/P - Plan Plan: This is a 59 year old female who presents with recurrent syncope, found to be severely orthostatic Syncope - likely from severe orthostatic hypotension - BP drops from 140 systolic to 80 while sitting. She is s/p 2L of IV fluids - advised to wear compression stockings. Cross legs, dorsiflex toes, raise knees or squat before standing. Advise to wait few minutes before going from sitting to standing. Eat small meals - will add midodrine tid to be given before standing prn. Avoid laying flat with midodrine and sleep at 30 degree angle - check carotid dopplers. Trend troponin, monitor on telemetry. Check ECHO - PT evaluation S/p fall - check CT head since patient on eliquis Supine hypertension - BP noted to be 190 systolic while laying down. Will add captopril qhs prn if BP > 170 to use before sleeping Hyponatremia - sodium 133. Check serum and urine osmolarity. She is sp 2L of fluid. Will give IV fluid 75 ml for total 1L QT prolongation - QT noted to be 470. Will check magnesium level CAD - continue aspirin and plavix and statin Atrial fibrillation - hold metoprolol and cardizem for now. Continue amiodarone. Resume eliquis if CT head normal Hypothyroidism - continue levothyroxine Anxiety - continue clonazepam Insomnia - continue temazepam
[2020-01-13] MEDS ORDERED: Aspirin 81 mg Enteric Coated Tablet PO SCH (19:30)
[2020-01-13] MEDS ORDERED: Clopidogrel Bisulfate 75 MG TAB PO SCH (19:30)
[2020-01-13] MEDS ORDERED: Amiodarone 200 MG TAB PO SCH (19:30)
[2020-01-13] MEDS: clonazePAM 1 MG TAB PO SCH (20:38)
[2020-01-13] MEDS: Atorvastatin Calcium 40 MG TAB PO SCH (20:38)
[2020-01-13] MEDS: Dicyclomine 10 MG CAP PO SCH (20:39)
[2020-01-13] MEDS: Midodrine HCl 5 MG TAB PO SCH (20:39)
[2020-01-13] MEDS: Temazepam 15 MG CAP PO SCH (20:40)
--- NOTE | 2020-01-13 20:59 | CT ---
HEAD CT WITHOUT CONTRAST: History: Syncope, patient fell and hit head. Patient is on Eliquis. Comparison: 05-02-2019 FINDINGS: No parenchymal hemorrhage. No extraaxial fluid collection. No midline shift. Basilar cisterns are patent. Brain volume, age appropriate. Cortical ruiz-white matter differentiation is preserved. No hydrocephalus. Adequate aeration of the sinuses and mastoid air cells. Intact calvarium. There is a small left occipital scalp hematoma with small focus of air attenuation suggesting possibl e soft tissue injury. IMPRESSION: 1. No intracranial traumatic sequelae. 2. Left occipital scalp hematoma and small focus of air attenuation suggesting post traumatic change. POS: PPP
[2020-01-14 04:51] LABS: Hemoglobin 12.9 g/dL (12.0-16.0); Mean Corpuscular HGB CONC 32.6 g/dL (32.0-36.0); Platelet Count 373 thou/uL (130-400); Red Blood Cell (RBC) Count 4.45 mill/uL (4.20-5.40); White Blood Cell (WBC) Count 10.7 thou/uL (4.8-10.8)
[2020-01-14 05:10] LABS: ALT (SGPT) 10 U/L (8-55); AST (SGOT) 9 U/L (5-34); Albumin 3.7 g/dL (3.5-5.0); Alkaline Phosphatase 117 U/L (40-110); Anion Gap 14 mmol/L (10-20); BUN (Urea Nitrogen) 11 mg/dL (9.8-20.1); Bilirubin, Total 0.5 mg/dL (0.2-1.2); Calc. Creatinine Clearance 109 mL/min (70-130); Calcium 8.8 mg/dL (7.8-10.44); Carbon Dioxide 20 mmol/L (22-29); Chloride 106 mmol/L (98-107); Estimated GFR-MDRD 80; Glucose 122 mg/dL (70-105); Potassium 3.5 mmol/L (3.5-5.1); Protein, Total 6.7 g/dL (6.0-8.3); Sodium 136 mmol/L (136-145)
[2020-01-14] MEDS: Levothyroxine Sodium 100 MCG TAB PO SCH (05:25)
--- NOTE | 2020-01-14 07:46 | ULT ---
Carotid duplex sonogram HISTORY: Syncope. Vascular disease. FINDINGS: Right: No significant plaque evident. Color and spectral Doppler evaluation, peak systolic velocity o f 42 cm/s, and IC to CC ratio of 0.6 suggest no hemodynamic or significant stenosis within the extra cranial right ICA. Antegrade flow within the vertebral artery. Left: Color and spectral Doppler evaluation, peak systolic velocity of 47 cm/s, and IC to CC ratio of 0.7 suggest no hemodynamically significant stenosis within the extracranial left ICA. Antegrade flow within the vertebral artery. IMPRESSION : No evidence of significant stenosis.
[2020-01-14] MEDS: Midodrine HCl 5 MG TAB PO SCH ×3 (08:31→20:32)
[2020-01-14] MEDS: Clopidogrel Bisulfate 75 MG TAB PO SCH (08:31)
[2020-01-14] MEDS: Aspirin 81 mg Enteric Coated Tablet PO SCH (08:31)
[2020-01-14] MEDS: Dicyclomine 10 MG CAP PO SCH ×2 (08:33→20:33)
[2020-01-14] MEDS: Amiodarone 200 MG TAB PO SCH (08:33)
[2020-01-14] MEDS: clonazePAM 1 MG TAB PO SCH ×2 (08:33→20:33)
[2020-01-14 15:02] LABS: SARS-CoV-2 MS2 Positive; SARS-CoV-2 N Gene Negative; SARS-CoV-2 S Gene Negative; SARS-CoV-2 by NAA Not Detected (NotDetected); SARS-CoV-2 orf1ab Negative
--- NOTE | 2020-01-14 19:06 | PDOC.HOSPP ---
- Subjective Encounter Date: 01/14/20 Encounter Time: 10:00 Subjective: The patient still feels dizzy while sitting up. Orthostatics still positive even after midodrine. She has not been able to work with PT - Objective Vital Signs & Weight: Vital Signs (12 hours) Temp Pulse Resp BP BP BP BP 01/14/20 15:02 98.2 F 64 16 160/102 H 01/14/20 14:45 86/59 L 91/55 L 142/86 H 01/14/20 12:17 98.3 F 60 14 131/87 01/14/20 08:03 98.0 F 73 16 135/94 H Pulse Ox 01/14/20 15:02 97 01/14/20 14:45 01/14/20 12:17 98 01/14/20 08:03 97 Weight Weight 183 lb 10.067 oz I&O: 01/13/20 01/14/20 01/15/20 06:59 06:59 06:59 Intake Total 720 1125 Output Total 600 Balance 720 525 Result Diagrams: 01/14/20 04:15 01/14/20 04:15 Hospitalist ROS - Review of Systems Constitutional: denies: fever, chills - Medication Medications: Active Medications Generic Name Dose Route Start Last Admin Trade Name Freq PRN Reason Stop Dose Admin Amiodarone HCl 200 mg 01/14/20 09:00 01/14/20 08:33 Amiodarone 200 Mg Tab PO 200 mg DAILY MANUELA Administration Aspirin 81 mg 01/14/20 09:00 01/14/20 08:31 Aspirin 81 Mg Enteric Coated Tablet PO 81 mg DAILY MANUELA Administration Atorvastatin Calcium 40 mg 01/13/20 21:00 01/13/20 20:38 Atorvastatin Calcium 40 Mg Tab PO 40 mg HS MANUELA Administration Captopril 12.5 mg 01/13/20 19:33 01/14/20 04:00 Captopril 12.5 Mg Tab PO 12.5 mg HSPRN PRN Administration SBP >170 Clonazepam 1 mg 01/13/20 21:00 01/14/20 08:33 Clonazepam 1 Mg Tab PO 1 mg BID MANUELA Administration Clopidogrel Bisulfate 75 mg 01/14/20 09:00 01/14/20 08:31 Clopidogrel Bisulfate 75 Mg Tab PO 75 mg DAILY MANUELA Administration Dicyclomine HCl 10 mg 01/13/20 21:00 01/14/20 08:33 Dicyclomine 10 Mg Cap PO 10 mg BID MANUELA Administration Levothyroxine Sodium 100 mcg 01/14/20 06:00 01/14/20 05:25 Levothyroxine Sodium 100 Mcg Tab PO 100 mcg 0600 MANUELA Administration Pantoprazole Sodium 40 mg 01/14/20 09:00 01/14/20 08:31 Pantoprazole 40 Mg Tab PO 40 mg DAILY MANUELA Administration Sertraline HCl 200 mg 01/14/20 09:00 01/14/20 08:33 Sertraline Hcl 100 Mg Tab PO 200 mg DAILY MANUELA Administration Temazepam 30 mg 01/13/20 21:00 01/13/20 20:40 Temazepam 15 Mg Cap PO 30 mg HS MANUELA Administration - Exam General Appearance: NAD, awake alert Eye: PERRL, anicteric sclera ENT: normocephalic atraumatic, no oropharyngeal lesions Neck: no JVD Heart: RRR, no murmur, no gallops, no rubs Respiratory: CTAB, no wheezes, no rales, no ronchi Gastrointestinal: soft, non-tender, non-distended, normal bowel sounds Extremities: no cyanosis, no clubbing, no edema Skin: normal turgor, no lesions, no rashes Neurological: cranial nerve grossly intact, normal sensation to touch, no focal deficits, no new deficit Hosp A/P - Plan ECHO: EF 55-60%, normal CT brain: left occipital scalp hematoma This is a 59 year old female who presents with recurrent syncope, found to be severely orthostatic Syncope - likely from severe orthostatic hypotension - BP drops from 140 systolic to 80 while sitting. She is s/p 2L of IV fluids. - advised to wear compression stockings. Cross legs, dorsiflex toes, raise knees or squat before standing. Advise to wait few minutes before going from sitting to standing. Eat small meals - 01/12: Carotid doppler showed no stenosis. ECHO unremarkable. Will increase midodrine to 5 mg tid. Add abdominal binder Left occipital scalp hematoma - noted on CT head, s/p fall. Will monitor Hyponatremia - resolved with IV fluids. Sodium up to 136 QT prolongation - QT noted to be 470. Mg level 1.7. Will order 2 gram mag, repeat EKG tomorrow CAD - continue aspirin and plavix and statin Atrial fibrillation - hold metoprolol and cardizem for now. Continue amiodarone. Resume xarelto today, hemoglobin has remained stable Chronic problems: Hypothyroidism: continue levothyroxine Anxiety: continue clonazepam Insomnia: continue temazepam
[2020-01-14] MEDS ORDERED: Rivaroxaban 10 MG TAB PO SCH (19:45)
[2020-01-14] MEDS ORDERED: Midodrine HCl 5 MG TAB PO SCH (19:45)
[2020-01-14] MEDS ORDERED: Magnesium 2 GM/50 ML 2 GM in Premix Bag 1 BAG IVPB SCH (19:45)
[2020-01-14] MEDS: Atorvastatin Calcium 40 MG TAB PO SCH (20:33)
[2020-01-14] MEDS: Temazepam 15 MG CAP PO SCH (20:34)
[2020-01-15 04:52] LABS: Troponin I Less than 0.010 ng/mL (< 0.028)
[2020-01-15] MEDS: Levothyroxine Sodium 100 MCG TAB PO SCH (05:19)
[2020-01-15] MEDS: Amiodarone 200 MG TAB PO SCH (08:51)
[2020-01-15] MEDS: clonazePAM 1 MG TAB PO SCH ×2 (08:52→20:21)
[2020-01-15] MEDS: Aspirin 81 mg Enteric Coated Tablet PO SCH (08:52)
[2020-01-15] MEDS: Dicyclomine 10 MG CAP PO SCH ×2 (08:52→20:21)
[2020-01-15] MEDS: Clopidogrel Bisulfate 75 MG TAB PO SCH (08:52)
[2020-01-15] MEDS: Midodrine HCl 5 MG TAB PO SCH ×2 (13:26→16:53)
[2020-01-15] MEDS ORDERED: Fludrocortisone Acetate 0.1 MG TAB PO SCH (16:30)
[2020-01-15] MEDS: Rivaroxaban 10 MG TAB PO SCH (16:55)
[2020-01-15 17:26] LABS: Hemoglobin 13.2 g/dL (12.0-16.0); Mean Corpuscular HGB CONC 32.3 g/dL (32.0-36.0); Mean Corpuscular Hemoglobin 28.6 pg (27.0-31.0); Mean Corpuscular Volume 88.6 fL (78.0-98.0); Mean Platelet Volume 7.2 fL (7.4-10.4); Platelet Count 392 thou/uL (130-400); RBC Distribution Width 13.1 % (11.5-14.5); Red Blood Cell (RBC) Count 4.63 mill/uL (4.20-5.40); White Blood Cell (WBC) Count 13.5 thou/uL (4.8-10.8)
[2020-01-15 17:36] LABS: RBC/HPF Greater than 50 HPF (0-3)
[2020-01-15 17:37] LABS: Bacteria/HPF 4+ HPF (None Seen); Squamous Epithelial 0-3 HPF (0-3)
--- NOTE | 2020-01-15 19:12 | PDOC.HOSPP ---
- Subjective Encounter Date: 01/15/20 Encounter Time: 08:00 Subjective: The patient was able to sit up without significant dizziness. BP when I checked sitting up was 100 systolic. She statse she was laying down and eating lunch on her side but was able to sit up and eat lunch SHe is requesting a regular diet - Objective Vital Signs & Weight: Vital Signs (12 hours) Temp Pulse Resp BP BP Pulse Ox 01/15/20 15:42 98.0 F 64 18 131/101 H 189/109 H 98 01/15/20 11:44 97.9 F 60 16 131/84 96 01/15/20 07:57 98.0 F 62 12 135/84 98 Weight Weight 183 lb 10.067 oz I&O: 01/14/20 01/15/20 01/16/20 06:59 06:59 06:59 Intake Total 720 1125 490 Output Total 600 1050 Balance 720 525 -560 Result Diagrams: 01/15/20 17:11 01/14/20 04:15 Hospitalist ROS - Review of Systems Constitutional: denies: fever, chills - Medication Medications: Active Medications Generic Name Dose Route Start Last Admin Trade Name Freq PRN Reason Stop Dose Admin Amiodarone HCl 200 mg 01/14/20 09:00 01/15/20 08:51 Amiodarone 200 Mg Tab PO 200 mg DAILY MANUELA Administration Aspirin 81 mg 01/14/20 09:00 01/15/20 08:52 Aspirin 81 Mg Enteric Coated Tablet PO 81 mg DAILY MANUELA Administration Atorvastatin Calcium 40 mg 01/13/20 21:00 01/14/20 20:33 Atorvastatin Calcium 40 Mg Tab PO 40 mg HS MANUELA Administration Captopril 12.5 mg 01/13/20 19:33 01/14/20 04:00 Captopril 12.5 Mg Tab PO 12.5 mg HSPRN PRN Administration SBP >170 Clonazepam 1 mg 01/13/20 21:00 01/15/20 08:52 Clonazepam 1 Mg Tab PO 1 mg BID MANUELA Administration Clopidogrel Bisulfate 75 mg 01/14/20 09:00 01/15/20 08:52 Clopidogrel Bisulfate 75 Mg Tab PO 75 mg DAILY MANUELA Administration Dicyclomine HCl 10 mg 01/13/20 21:00 01/15/20 08:52 Dicyclomine 10 Mg Cap PO 10 mg BID MANUELA Administration Levothyroxine Sodium 100 mcg 01/14/20 06:00 01/15/20 05:19 Levothyroxine Sodium 100 Mcg Tab PO 100 mcg 0600 MANUELA Administration Midodrine 5 mg 01/15/20 08:00 01/15/20 16:53 Midodrine Hcl 5 Mg Tab PO 5 mg TID-WM MANUELA Administration Pantoprazole Sodium 40 mg 01/14/20 09:00 01/15/20 08:52 Pantoprazole 40 Mg Tab PO 40 mg DAILY MANUELA Administration Rivaroxaban 20 mg 01/15/20 17:00 01/15/20 16:55 Rivaroxaban 10 Mg Tab PO Not Given 1700 MANUELA Sertraline HCl 200 mg 01/14/20 09:00 01/15/20 08:52 Sertraline Hcl 100 Mg Tab PO 200 mg DAILY MANUELA Administration Temazepam 30 mg 01/13/20 21:00 01/14/20 20:34 Temazepam 15 Mg Cap PO 30 mg HS MANUELA Administration - Exam General Appearance: NAD, awake alert Eye: PERRL, anicteric sclera ENT: normocephalic atraumatic, no oropharyngeal lesions Neck: no JVD Heart: RRR Respiratory: normal chest expansion, no tachypnea Gastrointestinal: soft, non-distended Extremities: no edema Skin: normal turgor, no lesions, no rashes Neurological: cranial nerve grossly intact, normal sensation to touch, no focal deficits, no new deficit Hosp A/P - Plan ECHO: EF 55-60%, normal CT brain: left occipital scalp hematoma This is a 59 year old female who presents with recurrent syncope, found to be severely orthostatic Syncope - likely from severe orthostatic hypotension - BP drops from 140 systolic to 80 while sitting. She is s/p 2L of IV fluids. - advised to wear compression stockings. Cross legs, dorsiflex toes, raise knees or squat before standing. Advise to wait few minutes before going from sitting to standing. Eat small meals -: Carotid doppler showed no stenosis. ECHO unremarkable. On midodrine 5 mg tid - abdominal binder ordered. Will add fludrocortisone Hematuria - noted no UA. Holding eliquis for now. She denies abdominal pain Left occipital scalp hematoma - noted on CT head, s/p fall. Will monitor Hyponatremia - resolved with IV fluids. Sodium up to 136 QT prolongation - QT noted to be 470. Mg level 1.7. S/p 2 gram magnesium, repeat EKG CAD - continue aspirin and plavix and statin Atrial fibrillation - hold metoprolol and cardizem for now. Continue amiodarone. Resume xarelto today, hemoglobin has remained stable Chronic problems: Hypothyroidism: continue levothyroxine Anxiety: continue clonazepam Insomnia: continue temazepam
[2020-01-15] MEDS: Atorvastatin Calcium 40 MG TAB PO SCH (20:21)
[2020-01-15] MEDS: Temazepam 15 MG CAP PO SCH (20:22)
[2020-01-16] MEDS: Acetaminophen 325 MG TAB PO PRN (00:28)
[2020-01-16 04:51] LABS: Anion Gap 11 mmol/L (10-20); BUN (Urea Nitrogen) 9 mg/dL (9.8-20.1); Calc. Creatinine Clearance 92 mL/min (70-130); Calcium 8.9 mg/dL (7.8-10.44); Carbon Dioxide 23 mmol/L (22-29); Chloride 106 mmol/L (98-107); Estimated GFR-MDRD 65; Glucose 116 mg/dL (70-105); Hemoglobin 12.9 g/dL (12.0-16.0); Mean Corpuscular HGB CONC 32.2 g/dL (32.0-36.0); Mean Corpuscular Hemoglobin 29.1 pg (27.0-31.0); Mean Corpuscular Volume 90.3 fL (78.0-98.0); Mean Platelet Volume 7.2 fL (7.4-10.4); Platelet Count 351 thou/uL (130-400); RBC Distribution Width 13.1 % (11.5-14.5); Red Blood Cell (RBC) Count 4.43 mill/uL (4.20-5.40); Sodium 136 mmol/L (136-145); White Blood Cell (WBC) Count 10.5 thou/uL (4.8-10.8)
[2020-01-16] MEDS: Levothyroxine Sodium 100 MCG TAB PO SCH (05:23)
[2020-01-16] MEDS: Aspirin 81 mg Enteric Coated Tablet PO SCH (09:43)
[2020-01-16] MEDS: Clopidogrel Bisulfate 75 MG TAB PO SCH (09:44)
[2020-01-16] MEDS: clonazePAM 1 MG TAB PO SCH ×2 (09:44→21:27)
[2020-01-16] MEDS: Amiodarone 200 MG TAB PO SCH (09:44)
[2020-01-16] MEDS: Dicyclomine 10 MG CAP PO SCH ×2 (09:44→21:27)
[2020-01-16] MEDS: Midodrine HCl 5 MG TAB PO SCH ×3 (09:44→17:31)
[2020-01-16] MEDS: Fludrocortisone Acetate 0.1 MG TAB PO SCH (09:45)
--- NOTE | 2020-01-16 14:31 | CT ---
CT OF THE ABDOMEN AND PELVIS WITHOUT IV CONTRAST: Date: 01/16/2020 INDICATION: History of hematuria and fall with left lower abdominal pain. COMPARISON: Noncontrast CT of abdomen and pelvis dated 11/12/2019. FINDINGS: There is subsegmental atelectasis involving both lower lobes. There is cardiomegaly, AICD and coronal artery calcifications. Unopacified liver, gallbladder, pancreas, adrenal glands, and spleen reveal no acute abnormality. No definite renal or ureteral calculus is evident. There is mild perinephric stranding that has been see n. The visualized ureters appear within normal limits. There is a surgical clip within the left lower qu adrant and lower aspects of the pelvis. The sigmoid colon is largely decompressed. There is a mild am ount of retained stool within the right hemicolon. The appendix is not definitely seen. Small bowel i s normal appearing. No definite acute osseous abnormality is evident. There is scattered degenerative and osteoarthritic change. There is mild dextroscoliosis of the lumbar spine. IMPRESSION: 1. No definite acute abnormality is seen. No renal or ureteral calculus. 2. Other chronic findings as above. POS: ELPIDIO
--- NOTE | 2020-01-16 16:46 | PDOC.HOSPP ---
- Subjective Encounter Date: 01/16/20 Encounter Time: 08:00 Subjective: The patient states she has been having hematuria. She has no abdominal pain. She does complain of some burning after she finishes urination. She does take xarelto for pacemaker. It was held yesterday PT stood her up to day and she almost passed out. Unable to take a standing blood pressure. Supine BP 190, sitting was 130 with heart rate increase to 120 At 5:00 pm , laying BP 213 systolic, sitting 190 systolic - Objective Vital Signs & Weight: Vital Signs (12 hours) Temp Pulse Pulse Pulse Pulse Resp BP 01/16/20 15:50 120 H 60 63 100/71 01/16/20 11:44 97.4 F L 60 15 01/16/20 08:38 60 67 107/68 01/16/20 08:21 98.5 F 63 14 BP BP BP BP Pulse Ox Pulse Ox Pulse Ox 01/16/20 15:50 193/137 H 129/91 H 01/16/20 11:44 138/93 H 97 01/16/20 08:38 116/81 99 97 01/16/20 08:21 99/75 94 L Weight Weight 183 lb 10.067 oz I&O: 01/15/20 01/16/20 01/17/20 06:59 06:59 06:59 Intake Total 1125 1030 Output Total 600 1050 Balance 525 -20 Result Diagrams: 01/16/20 04:02 01/16/20 04:02 Hospitalist ROS - Review of Systems Constitutional: denies: fever, chills - Medication Medications: Active Medications Generic Name Dose Route Start Last Admin Trade Name Tarun PRN Reason Stop Dose Admin Acetaminophen 650 mg 01/15/20 12:06 01/16/20 00:28 Acetaminophen 325 Mg Tab PO 650 mg Q6H PRN Administration Headache Amiodarone HCl 200 mg 01/14/20 09:00 01/16/20 09:44 Amiodarone 200 Mg Tab PO 200 mg DAILY MANUELA Administration Aspirin 81 mg 01/14/20 09:00 01/16/20 09:43 Aspirin 81 Mg Enteric Coated Tablet PO 81 mg DAILY MANUELA Administration Atorvastatin Calcium 40 mg 01/13/20 21:00 01/15/20 20:21 Atorvastatin Calcium 40 Mg Tab PO 40 mg HS MANUELA Administration Captopril 12.5 mg 01/13/20 19:33 01/14/20 04:00 Captopril 12.5 Mg Tab PO 12.5 mg HSPRN PRN Administration SBP >170 Clonazepam 1 mg 01/13/20 21:00 01/16/20 09:44 Clonazepam 1 Mg Tab PO 1 mg BID MANUELA Administration Clopidogrel Bisulfate 75 mg 01/14/20 09:00 01/16/20 09:44 Clopidogrel Bisulfate 75 Mg Tab PO 75 mg DAILY MANUELA Administration Dicyclomine HCl 10 mg 01/13/20 21:00 01/16/20 09:44 Dicyclomine 10 Mg Cap PO 10 mg BID MANUELA Administration Fludrocortisone Acetate 0.1 mg 01/16/20 09:00 01/16/20 09:45 Fludrocortisone Acetate 0.1 Mg Tab PO 0.1 mg DAILY MANUELA Administration Levothyroxine Sodium 100 mcg 01/14/20 06:00 01/16/20 05:23 Levothyroxine Sodium 100 Mcg Tab PO 100 mcg 0600 MANUELA Administration Midodrine 5 mg 01/15/20 08:00 01/16/20 11:58 Midodrine Hcl 5 Mg Tab PO 5 mg TID-WM MANUELA Administration Pantoprazole Sodium 40 mg 01/14/20 09:00 01/16/20 09:44 Pantoprazole 40 Mg Tab PO 40 mg DAILY MANUELA Administration Rivaroxaban 20 mg 01/15/20 17:00 01/15/20 16:55 Rivaroxaban 10 Mg Tab PO Not Given 1700 MANUELA Sertraline HCl 200 mg 01/14/20 09:00 01/16/20 09:43 Sertraline Hcl 100 Mg Tab PO 200 mg DAILY MANUELA Administration Temazepam 30 mg 01/13/20 21:00 01/15/20 20:22 Temazepam 15 Mg Cap PO 30 mg HS MANUELA Administration - Exam General Appearance: NAD, awake alert Eye: PERRL, anicteric sclera ENT: normocephalic atraumatic, no oropharyngeal lesions Neck: no JVD Heart: RRR, no murmur, no gallops, no rubs Respiratory: CTAB, no wheezes, no rales, no ronchi Gastrointestinal: soft, non-tender, non-distended, normal bowel sounds Extremities: no cyanosis, no clubbing, no edema Skin: normal turgor, no lesions, no rashes Neurological: cranial nerve grossly intact, normal sensation to touch, no focal deficits, no new deficit Hosp A/P - Plan ECHO: EF 55-60%, normal CT brain: left occipital scalp hematoma This is a 59 year old female who presents with recurrent syncope, found to be severely orthostatic Syncope - likely from severe orthostatic hypotension - BP drops from 140 systolic to 80 while sitting. She is s/p 2L of IV fluids. - advised to wear compression stockings. Cross legs, dorsiflex toes, raise knees or squat before standing. Advise to wait few minutes before going from sitting to standing. Eat small meals -: Carotid doppler showed no stenosis. ECHO unremarkable. On midodrine 5 mg tid - got abdominal binder - she is on fludrocortisone 0.1 mg daily . Very difficult to treat given severe supine hypertension but severe othostatic hypotension . She does not tolerate standing up. She may need SNF placement since this may be a chronic issue Hematuria - noted no UA. Continue to hold eliquis Left occipital scalp hematoma - noted on CT head, s/p fall. Will monitor Hyponatremia - resolved with IV fluids. Sodium up to 136 QT prolongation - QT noted to be 470. Mg level 1.7. S/p 2 gram magnesium, repeat EKG CAD - continue aspirin and plavix and statin Atrial fibrillation - hold metoprolol and cardizem for now. Continue amiodarone. Resume xarelto today, hemoglobin has remained stable Chronic problems: Hypothyroidism: continue levothyroxine Anxiety: continue clonazepam Insomnia: continue temazepam
[2020-01-16] MEDS: Rivaroxaban 10 MG TAB PO SCH (17:31)
[2020-01-16] MEDS: Temazepam 15 MG CAP PO SCH (21:27)
[2020-01-16] MEDS: Atorvastatin Calcium 40 MG TAB PO SCH (21:27)
[2020-01-17 04:54] LABS: Hemoglobin 13.5 g/dL (12.0-16.0); Mean Corpuscular HGB CONC 33.2 g/dL (32.0-36.0); Mean Corpuscular Hemoglobin 29.5 pg (27.0-31.0); Mean Corpuscular Volume 88.7 fL (78.0-98.0); Mean Platelet Volume 7.4 fL (7.4-10.4); Platelet Count 375 thou/uL (130-400); RBC Distribution Width 13.1 % (11.5-14.5); Red Blood Cell (RBC) Count 4.58 mill/uL (4.20-5.40)
[2020-01-17] MEDS: Levothyroxine Sodium 100 MCG TAB PO SCH (05:40)
[2020-01-17] MEDS: Amiodarone 200 MG TAB PO SCH (08:24)
[2020-01-17] MEDS: Fludrocortisone Acetate 0.1 MG TAB PO SCH (08:24)
[2020-01-17] MEDS: Midodrine HCl 5 MG TAB PO SCH ×3 (08:24→17:27)
[2020-01-17] MEDS: clonazePAM 1 MG TAB PO SCH ×2 (08:24→20:36)
[2020-01-17] MEDS: Clopidogrel Bisulfate 75 MG TAB PO SCH (08:24)
[2020-01-17] MEDS: Dicyclomine 10 MG CAP PO SCH ×2 (08:25→20:36)
[2020-01-17] MEDS: Aspirin 81 mg Enteric Coated Tablet PO SCH (08:25)
--- NOTE | 2020-01-17 18:46 | PDOC.HOSPP ---
- Subjective Encounter Date: 01/17/20 Encounter Time: 09:00 Subjective: The patient continues to feel lightheaded and pass out upon standing up, but she is able to tolerate sitting a bit longer. She could not stand long enough for them to get a standing blood pressure Discussed with cardiology not a candidate for eliquis due to high risk fall - Objective Vital Signs & Weight: Vital Signs (12 hours) Temp Pulse Resp BP BP BP BP 01/17/20 16:00 98.5 F 60 14 187/113 H 01/17/20 14:50 139/93 H 92/62 01/17/20 14:30 92/62 139/93 H 01/17/20 11:28 97.9 F 60 15 116/75 01/17/20 07:50 97.8 F 60 17 122/77 Pulse Ox 01/17/20 16:00 93 L 01/17/20 14:50 01/17/20 14:30 01/17/20 11:28 95 01/17/20 07:50 98 Weight Weight 183 lb 10.067 oz I&O: 01/16/20 01/17/20 01/18/20 06:59 06:59 06:59 Intake Total 1030 1460 708 Output Total 1050 1150 650 Balance -20 310 58 Result Diagrams: 01/17/20 04:13 01/16/20 04:02 Hospitalist ROS - Review of Systems Constitutional: denies: fever, chills - Medication Medications: Active Medications Generic Name Dose Route Start Last Admin Trade Name Freq PRN Reason Stop Dose Admin Acetaminophen 650 mg 01/15/20 12:06 01/16/20 00:28 Acetaminophen 325 Mg Tab PO 650 mg Q6H PRN Administration Headache Amiodarone HCl 200 mg 01/14/20 09:00 01/17/20 08:24 Amiodarone 200 Mg Tab PO 200 mg DAILY MANUELA Administration Aspirin 81 mg 01/14/20 09:00 01/17/20 08:25 Aspirin 81 Mg Enteric Coated Tablet PO 81 mg DAILY MANUELA Administration Atorvastatin Calcium 40 mg 01/13/20 21:00 01/16/20 21:27 Atorvastatin Calcium 40 Mg Tab PO 40 mg HS MANUELA Administration Captopril 12.5 mg 01/13/20 19:33 01/14/20 04:00 Captopril 12.5 Mg Tab PO 12.5 mg HSPRN PRN Administration SBP >170 Clonazepam 1 mg 01/13/20 21:00 01/17/20 08:24 Clonazepam 1 Mg Tab PO 1 mg BID MANUELA Administration Clopidogrel Bisulfate 75 mg 01/14/20 09:00 01/17/20 08:24 Clopidogrel Bisulfate 75 Mg Tab PO 75 mg DAILY MANUELA Administration Dicyclomine HCl 10 mg 01/13/20 21:00 01/17/20 08:25 Dicyclomine 10 Mg Cap PO 10 mg BID MANUELA Administration Fludrocortisone Acetate 0.1 mg 01/16/20 09:00 01/17/20 08:24 Fludrocortisone Acetate 0.1 Mg Tab PO 0.1 mg DAILY MANUELA Administration Levothyroxine Sodium 100 mcg 01/14/20 06:00 01/17/20 05:40 Levothyroxine Sodium 100 Mcg Tab PO 100 mcg 0600 MANUELA Administration Midodrine 5 mg 01/15/20 08:00 01/17/20 17:27 Midodrine Hcl 5 Mg Tab PO 5 mg TID-WM MANUELA Administration Pantoprazole Sodium 40 mg 01/14/20 09:00 01/17/20 08:24 Pantoprazole 40 Mg Tab PO 40 mg DAILY MANUELA Administration Sertraline HCl 200 mg 01/14/20 09:00 01/17/20 08:24 Sertraline Hcl 100 Mg Tab PO 200 mg DAILY MANUELA Administration Temazepam 30 mg 01/13/20 21:00 01/16/20 21:27 Temazepam 15 Mg Cap PO 30 mg HS MANUELA Administration - Exam General Appearance: NAD, awake alert Eye: PERRL, anicteric sclera ENT: normocephalic atraumatic, no oropharyngeal lesions Neck: no JVD Heart: RRR, no murmur, no gallops, no rubs Respiratory: CTAB, no wheezes, no rales, no ronchi Gastrointestinal: soft, non-tender, non-distended, normal bowel sounds Extremities: no cyanosis, no clubbing, no edema Skin: normal turgor, no lesions, no rashes Neurological: cranial nerve grossly intact, normal sensation to touch, no focal deficits, no new deficit Hosp A/P - Plan ECHO: EF 55-60%, normal CT brain: left occipital scalp hematoma This is a 59 year old female who presents with recurrent syncope, found to be severely orthostatic Syncope - from severe orthostatic hypotension - BP drops from 140 systolic to 80 while sitting. She is s/p 2L of IV fluids and IV fluids for one day - advised to wear compression stockings. Cross legs, dorsiflex toes, raise knees or squat before standing. Advise to wait few minutes before going from sitting to standing. Eat small meals -: Carotid doppler showed no stenosis. ECHO unremarkable. On midodrine 5 mg tid. On fludrocortisone 0.1 mg daily, can titrate up if no severe supine hypertension - continue abdominal binder - PT recommending home with home health, Case management consult placed Hematuria - noted no UA. Hold xarelto Left occipital scalp hematoma - noted on CT head, s/p fall. Will monitor Hyponatremia - resolved with IV fluids. Sodium up to 136 QT prolongation - QT noted to be 470. Mg level 1.7. S/p 2 gram magnesium, repeat EKG CAD - continue aspirin and plavix and statin Atrial fibrillation - hold metoprolol and cardizem for now. Continue amiodarone. Discontinue xarelto Chronic problems: Hypothyroidism: continue levothyroxine Anxiety: continue clonazepam Insomnia: continue temazepam Dispo: pending improvement in patient ability to stand, may need home with home health
--- NOTE | 2020-01-17 19:26 | CON ---
DATE OF CONSULTATION: REASON FOR CONSULTATION: Recommendations on anticoagulation therapy. PRIMARY LOADING DOCK HAND: Dr. Miguel Angel White. HISTORY OF PRESENT ILLNESS: Ms. Kelly is a 59-year-old woman with previous history of atrial fibrillation on anticoagulation therapy. She also has a previous history of pacemaker placement for orthostatic hypotension. She recently presented with syncope. She has significant orthostatic hypotension. She did state she had 4 syncopal episodes prior to her presentation to the emergency room. She did have trauma to her right side of her forehead. CT scan was negative for bleed. Overall, LVEF on recent echo felt to be within normal limits. PAST MEDICAL HISTORY: Orthostatic hypotension, atrial fibrillation status post pacemaker placement, depression, anxiety, hypothyroidism, hypertension, hysterectomy, appendectomy, and tonsillectomy. SOCIAL HISTORY: No current tobacco or alcohol use. She currently lives with her son and [id number]. REVIEW OF SYSTEMS: A 10-point review of systems is reviewed and as above, otherwise negative. PHYSICAL EXAMINATION: GENERAL: Patient is a pleasant female, who is in no acute distress. The patient appears their stated age. VITAL SIGNS: Blood pressure 139/93, pulse 60, and temperature 98.5. NEUROLOGIC: The patient is alert and oriented x3 with no focal neurologic deficits. HEENT: Sclerae without icterus. Mouth has moist mucous membranes with normal pallor. NECK: No JVD. Carotid upstroke brisk. No bruits bilaterally. LUNGS: Clear to auscultation with unlabored respirations. BACK: No scoliosis or kyphosis. CARDIAC: Regular rate and rhythm with normal S1 and S2. No S3 or S4 noted. No significant rubs, murmurs, thrills, or gallops noted throughout the precordium. PMI is not displaced. There is no parasternal heave. ABDOMEN: Soft, nontender, nondistended. No peritoneal signs present. No hepatosplenomegaly. No abnormal striae. EXTREMITIES: 2+ femoral and 2+ dorsalis pedis pulses. No cyanosis, clubbing, or edema. SKIN: No gross abnormalities. PERTINENT LABORATORY DATA: Hemoglobin 13.5, hematocrit 40.6, and white blood cell count 12. IMPRESSION: 1. Atrial fibrillation, on anticoagulation therapy. 2. Status post pacemaker. 3. Orthostatic hypotension. RECOMMENDATIONS: For orthostatic hypotension, agree with compression socks in addition to IV fluids. I would seek a secondary cause such as a neurologic cause. Her overall LVEF does appear normal. Her CBC is also felt to be within normal limits. From an anticoagulation standpoint, we would not recommend further anticoagulation therapy until her orthostatic hypotension is improved. She has had syncopal episodes upon standing. Tips and tricks on reducing syncope have been noted, but are still concerned about trauma, especially head trauma on anticoagulation therapy. Risks and benefits of anticoagulation treatment were discussed with Ms. Kelly. Decided to proceed with aspirin only and no anticoagulation treatment. She is likely a good candidate for a Watchman device and can be scheduled as an outpatient. Her rate appears to be well controlled. Job ID: [id number]
[2020-01-17] MEDS: Temazepam 15 MG CAP PO SCH (20:35)
[2020-01-17] MEDS: Atorvastatin Calcium 40 MG TAB PO SCH (20:36)
[2020-01-18 04:47] LABS: Hemoglobin 13.6 g/dL (12.0-16.0); Mean Corpuscular HGB CONC 33.4 g/dL (32.0-36.0); Mean Corpuscular Hemoglobin 29.7 pg (27.0-31.0); Mean Platelet Volume 7.6 fL (7.4-10.4); Platelet Count 359 thou/uL (130-400); RBC Distribution Width 13.1 % (11.5-14.5); Red Blood Cell (RBC) Count 4.57 mill/uL (4.20-5.40); White Blood Cell (WBC) Count 11.5 thou/uL (4.8-10.8)
[2020-01-18 05:06] LABS: ALT (SGPT) Less than 7 U/L (8-55); AST (SGOT) 8 U/L (5-34); Albumin 3.6 g/dL (3.5-5.0); Alkaline Phosphatase 123 U/L (40-110); Anion Gap 12 mmol/L (10-20); BUN (Urea Nitrogen) 12 mg/dL (9.8-20.1); Bilirubin, Total 0.4 mg/dL (0.2-1.2); Calc. Creatinine Clearance 76 mL/min (70-130); Calcium 9.2 mg/dL (7.8-10.44); Carbon Dioxide 25 mmol/L (22-29); Chloride 104 mmol/L (98-107); Estimated GFR-MDRD 53; Globulin 3.1 g/dL (2.4-3.5); Glucose 130 mg/dL (70-105); Potassium 3.6 mmol/L (3.5-5.1); Protein, Total 6.7 g/dL (6.0-8.3); Sodium 137 mmol/L (136-145)
[2020-01-18] MEDS: Levothyroxine Sodium 100 MCG TAB PO SCH (05:40)
[2020-01-18] MEDS: Fludrocortisone Acetate 0.1 MG TAB PO SCH (08:27)
[2020-01-18] MEDS: Midodrine HCl 5 MG TAB PO SCH ×3 (08:27→17:02)
[2020-01-18] MEDS: clonazePAM 1 MG TAB PO SCH ×2 (08:27→20:11)
[2020-01-18] MEDS: Aspirin 81 mg Enteric Coated Tablet PO SCH (08:27)
[2020-01-18] MEDS: Dicyclomine 10 MG CAP PO SCH ×2 (08:27→20:11)
[2020-01-18] MEDS: Amiodarone 200 MG TAB PO SCH (08:27)
[2020-01-18] MEDS: Clopidogrel Bisulfate 75 MG TAB PO SCH (08:27)
--- NOTE | 2020-01-18 10:10 | PDOC.HOSPP ---
- Subjective Encounter Date: 01/18/20 Encounter Time: 10:00 Subjective: f/u for orthostatic hypotension of unclear etiology. Treated with Florinef/Midodrine/IVF's but episodes continue. Feels ok while in bed or reclined. Tolerating po intake and voiding regularly. - Objective Vital Signs & Weight: Vital Signs (12 hours) Temp Pulse Resp BP Pulse Ox 01/18/20 07:41 98.4 F 62 13 138/89 95 01/18/20 06:38 103/70 01/18/20 04:00 98.4 F 60 16 82/52 L 99 Weight Weight 183 lb 10.067 oz I&O: 01/17/20 01/18/20 01/19/20 06:59 06:59 06:59 Intake Total 1460 948 Output Total 1150 850 Balance 310 98 Result Diagrams: 01/18/20 04:23 01/18/20 04:23 Additional Labs: Microbiology 01/17/20 00:17 Urine voided Urine Culture - Preliminary Laboratory Tests 01/13/20 01/13/20 01/13/20 10:25 10:25 17:06 D-Dimer 1.02 H Magnesium Troponin I Less than 0.010 SARS-CoV-2 (PCR) Not Detected 01/13/20 01/13/20 01/15/20 19:50 19:50 04:19 D-Dimer Magnesium 1.7 Troponin I 0.013 Less than 0.010 SARS-CoV-2 (PCR) Radiology Reviewed by me: Yes (Echo - EF 55-60%, mild LAE) EKG Reviewed by me: Yes (Tele - V-pacing) Hospitalist ROS - Medication Medications: Active Medications Generic Name Dose Route Start Last Admin Trade Name Freq PRN Reason Stop Dose Admin Acetaminophen 650 mg 01/15/20 12:06 01/16/20 00:28 Acetaminophen 325 Mg Tab PO 650 mg Q6H PRN Administration Headache Amiodarone HCl 200 mg 01/14/20 09:00 01/18/20 08:27 Amiodarone 200 Mg Tab PO 200 mg DAILY MANUELA Administration Aspirin 81 mg 01/14/20 09:00 01/18/20 08:27 Aspirin 81 Mg Enteric Coated Tablet PO 81 mg DAILY MANUELA Administration Atorvastatin Calcium 40 mg 01/13/20 21:00 01/17/20 20:36 Atorvastatin Calcium 40 Mg Tab PO 40 mg HS MANUELA Administration Captopril 12.5 mg 01/13/20 19:33 01/14/20 04:00 Captopril 12.5 Mg Tab PO 12.5 mg HSPRN PRN Administration SBP >170 Clonazepam 1 mg 01/13/20 21:00 01/18/20 08:27 Clonazepam 1 Mg Tab PO 1 mg BID MANUELA Administration Clopidogrel Bisulfate 75 mg 01/14/20 09:00 01/18/20 08:27 Clopidogrel Bisulfate 75 Mg Tab PO 75 mg DAILY MANUELA Administration Dicyclomine HCl 10 mg 01/13/20 21:00 01/18/20 08:27 Dicyclomine 10 Mg Cap PO 10 mg BID MANUELA Administration Fludrocortisone Acetate 0.1 mg 01/16/20 09:00 01/18/20 08:27 Fludrocortisone Acetate 0.1 Mg Tab PO 0.1 mg DAILY MANUELA Administration Levothyroxine Sodium 100 mcg 01/14/20 06:00 01/18/20 05:40 Levothyroxine Sodium 100 Mcg Tab PO 100 mcg 0600 MANUELA Administration Midodrine 5 mg 01/15/20 08:00 01/18/20 08:27 Midodrine Hcl 5 Mg Tab PO 5 mg TID-WM MANUELA Administration Pantoprazole Sodium 40 mg 01/14/20 09:00 01/18/20 08:27 Pantoprazole 40 Mg Tab PO 40 mg DAILY MANUELA Administration Sertraline HCl 200 mg 01/14/20 09:00 01/18/20 08:27 Sertraline Hcl 100 Mg Tab PO 200 mg DAILY MANUELA Administration Temazepam 30 mg 01/13/20 21:00 01/17/20 20:35 Temazepam 15 Mg Cap PO 30 mg HS MANUELA Administration - Exam General Appearance: NAD, awake alert Eye: PERRL, anicteric sclera ENT: no oropharyngeal lesions ENT - other findings: + contusion of R scalp Neck: supple, symmetric, no JVD, no thyromegaly, no lymphadenopathy Heart: RRR, no gallops, no rubs, normal peripheral pulses Heart - other findings: S1, S2 Respiratory: CTAB, no wheezes, no rales, no ronchi, normal chest expansion, no tachypnea Gastrointestinal: soft, non-tender, non-distended, normal bowel sounds, no palpable masses Extremities: no cyanosis, no clubbing, no edema Skin: normal turgor Neurological: cranial nerve grossly intact, no new deficit Musculoskeletal: normal tone, normal strength Psychiatric: normal affect, A&O x 3 Hosp A/P (1) Orthostatic hypotension Code(s): I95.1 - ORTHOSTATIC HYPOTENSION Status: Acute Plan: Etiology unclear, normal functioning pacemaker, trial of Florinef/Midodrine, consult Neurology for any further recs, Abd naomi (2) Syncope Code(s): R55 - SYNCOPE AND COLLAPSE Status: Acute Plan: Secondary to #1, see above (3) Atrial fibrillation Code(s): I48.91 - UNSPECIFIED ATRIAL FIBRILLATION Status: Chronic Plan: Continue Amiodarone/ASA/Plavix, Pacemaker with normal function (4) Bipolar 1 disorder Code(s): F31.9 - BIPOLAR DISORDER, UNSPECIFIED Status: Chronic (5) CAD (coronary artery disease) Code(s): I25.10 - ATHSCL HEART DISEASE OF [place] CORONARY ARTERY W/O ANG PCTRS Status: Chronic Plan: Chronic, stable, continue ASA/Plavix/Lipitor (6) Hypothyroid Code(s): E03.9 - HYPOTHYROIDISM, UNSPECIFIED Status: Chronic Plan: Repeat TSH/FT4 - Plan PT/OT, social media campaign manager, out of bed/ambulate, DVT proph w/SCDs Stable currently Continue Florinef/Midodrine Tello salgado OOB with PT Consult Neurology today AM lab: TSH, FT4
--- NOTE | 2020-01-18 10:43 | PDOC.CPN ---
- Subjective Date: 01/18/20 Time: 10:41 Interval history: No overnight events/complaints. Patient has not tried getting OOB thus far. - Review of Systems General: denies: fever/chills, weight/appetite/sleep changes, night sweats, fatigue Respiratory: denies: cough, congestion, shortness of breath, exercise intolerance Cardiovascular: denies: chest pain, palpitation, edema, paroxysmal nocturnal dyspnea, orthopnea Gastrointestinal: denies: nausea, vomiting, diarrhea, constipation, abd pain, GI bleeding Musculoskeletal: denies: pain, tenderness, stiffness, swelling, arthritis/arthralgias Neurological: denies: numbness, syncope, seizure, weakness - Objective Allergies/Adverse Reactions: Allergies Allergy/AdvReac Type Severity Reaction Status Date / Time cefaclor [From Ceclor] Allergy Severe Rash Verified 09/21/18 21:15 Penicillins Allergy Severe Anaphylaxis Verified 09/21/18 21:15 povidone-iodine Allergy Severe Rash Verified 09/21/18 21:16 [From Betadine] soap [From Betadine] Allergy Severe Rash Verified 09/21/18 21:16 Sulfa (Sulfonamide Allergy Severe Rash Verified 09/21/18 21:15 Antibiotics) tetracycline Allergy Severe Rash Verified 09/21/18 21:15 Visit Medications: Current Medications Acetaminophen (Acetaminophen 325 Mg Tab) 650 mg PO Q6H PRN PRN Reason: Headache Last Admin: 01/16/20 00:28 Dose: 650 mg Documented by: Amiodarone HCl (Amiodarone 200 Mg Tab) 200 mg PO DAILY [facility] Last Admin: 01/18/20 08:27 Dose: 200 mg Documented by: Aspirin (Aspirin 81 Mg Enteric Coated Tablet) 81 mg PO DAILY [facility] Last Admin: 01/18/20 08:27 Dose: 81 mg Documented by: Atorvastatin Calcium (Atorvastatin Calcium 40 Mg Tab) 40 mg PO HS [facility] Last Admin: 01/17/20 20:36 Dose: 40 mg Documented by: Captopril (Captopril 12.5 Mg Tab) 12.5 mg PO HSPRN PRN PRN Reason: SBP >170 Last Admin: 01/14/20 04:00 Dose: 12.5 mg Documented by: Clonazepam (Clonazepam 1 Mg Tab) 1 mg PO BID [facility] Last Admin: 01/18/20 08:27 Dose: 1 mg Documented by: Clopidogrel Bisulfate (Clopidogrel Bisulfate 75 Mg Tab) 75 mg PO DAILY [facility] Last Admin: 01/18/20 08:27 Dose: 75 mg Documented by: Dicyclomine HCl (Dicyclomine 10 Mg Cap) 10 mg PO BID [facility] Last Admin: 01/18/20 08:27 Dose: 10 mg Documented by: Fludrocortisone Acetate (Fludrocortisone Acetate 0.1 Mg Tab) 0.1 mg PO DAILY [facility] Last Admin: 01/18/20 08:27 Dose: 0.1 mg Documented by: Levothyroxine Sodium (Levothyroxine Sodium 100 Mcg Tab) 100 mcg PO 0600 [facility] Last Admin: 01/18/20 05:40 Dose: 100 mcg Documented by: Midodrine (Midodrine Hcl 5 Mg Tab) 5 mg PO TID-[facility] Last Admin: 01/18/20 08:27 Dose: 5 mg Documented by: Pantoprazole Sodium (Pantoprazole 40 Mg Tab) 40 mg PO DAILY [facility] Last Admin: 01/18/20 08:27 Dose: 40 mg Documented by: Sertraline HCl (Sertraline Hcl 100 Mg Tab) 200 mg PO DAILY [facility] Last Admin: 01/18/20 08:27 Dose: 200 mg Documented by: Temazepam (Temazepam 15 Mg Cap) 30 mg PO HS [facility] Last Admin: 01/17/20 20:35 Dose: 30 mg Documented by: Vital Signs & Weight: Vital Signs Temp Pulse Resp BP Pulse Ox 01/18/20 07:41 98.4 F 62 13 138/89 95 01/18/20 06:38 103/70 01/18/20 04:00 98.4 F 60 16 82/52 L 99 Weight 183 lb 10.067 oz - Physical Exam General: alert & oriented x3, appears well, no apparent distress HEENT: mucus membranes moist Neck: supple neck Cardiac: regular rate, regular rhythm Lungs: normal breath sounds Neuro: grossly intact Abdomen: soft, non-tender Extremities: no edema Skin: clear Musculoskeletal: no pain - Labs Result Diagrams: 01/18/20 04:23 01/18/20 04:23 Troponin/CKMB Troponin I Less than 0.010 ng/mL (< 0.028) 01/15/20 04:19 - Assessment/Plan Assessment/Plan: 1. Syncope 2. Orthostatic Hypotension 3. AFib 4. s/p pacemaker Trial florinef and midodrine starting today. Compression therapy. Hydration. Can refer to EP as outpatient to discuss Watchman.
--- NOTE | 2020-01-18 13:34 | CON ---
NEUROLOGY CONSULTATION DATE OF CONSULTATION: 01/18/2020 REASON FOR CONSULTATION: Syncope. HISTORY OF PRESENT ILLNESS: Ms. Ansley Kelly is a 59-year-old female with medical history significant for atrial fibrillation, depression, anxiety, congestive heart failure, hypothyroidism, hypertension, presented to the emergency room with 1- week history of dizziness and lightheadedness whenever she tries to stand up and walk and followed by loss of consciousness. The patient was admitted on 01/13/2020. Per patient, on 01/11, she was found by her son on the ground and she passed out for 30 minutes. No witnessed seizure activity was noted at that time. The patient denies nausea, vomiting, or headache. Associated with dizziness and lightheadedness. She also denies cough, chest pain, abdominal pain, diarrhea, recent sick exposure, focal weakness, focal paresthesias, vertigo, speech deficit, or problems with swallowing associated with these episodes. She has history of arrhythmia and has the pacemaker placed 5 years ago in [place], [place]. She takes amiodarone, metoprolol, amlodipine, lisinopril, Xarelto, and diltiazem. She was admitted and evaluated by Cardiology. CTA of the chest was done, which did not reveal pulmonary embolism. Head CT did not reveal any acute intracranial pathology. Carotid Doppler did not reveal any hemodynamically significant stenosis. Echocardiogram shows ejection fraction of 55% to 60%. No thrombus or PFO. The patient was found to have orthostatic hypotension and is currently being treated with Florinef and midodrine. Neurology was consulted for further recommendations. REVIEW OF SYSTEMS: All 14 systems were reviewed and were negative except the pertinent positives and negatives mentioned in the HPI. PAST MEDICAL HISTORY: Atrial fibrillation, bipolar disorder, coronary artery disease, hypothyroidism, depression, congestive heart failure, and hypertension. PAST SURGICAL HISTORY: Hysterectomy, right ureteral reconstruction, appendectomy, tonsillectomy. FAMILY HISTORY: Significant for coronary artery disease, stroke, and diabetes. SOCIAL HISTORY: The patient lives with son and daughter. She denies smoking, alcohol, or illegal drug use. ALLERGIES: PCN, Sulfa and cefaclor - Objective Vital Signs & Weight: Vital Signs (12 hours) Temp Pulse Resp BP Pulse Ox 01/18/20 07:41 98.4 F 62 13 138/89 95 01/18/20 06:38 103/70 01/18/20 04:00 98.4 F 60 16 82/52 L 99 Weight Weight 183 lb 10.067 oz I&O: 01/17/20 01/18/20 01/19/20 06:59 06:59 06:59 Intake Total 1460 948 Output Total 1150 850 Balance 310 98 01/17/20 00:17 Urine voided Urine Culture - Preliminary Laboratory Tests 01/13/20 01/13/20 01/13/20 10:25 10:25 17:06 D-Dimer 1.02 H Magnesium Troponin I Less than 0.010 SARS-CoV-2 (PCR) Not Detected 01/13/20 01/13/20 01/15/20 19:50 19:50 04:19 D-Dimer Magnesium 1.7 Troponin I 0.013 Less than 0.010 SARS-CoV-2 (PCR) Radiology Reviewed by me: Yes (Echo - EF 55-60%, mild LAE) EKG Reviewed by me: Yes (Tele - V-pacing) Active Medications Generic Name Dose Route Start Last Admin Trade Name Freq PRN Reason Stop Dose Admin Acetaminophen 650 mg 01/15/20 12:06 01/16/20 00:28 Acetaminophen 325 Mg Tab PO 650 mg Q6H PRN Administration Headache Amiodarone HCl 200 mg 01/14/20 09:00 01/18/20 08:27 Amiodarone 200 Mg Tab PO 200 mg DAILY MANUELA Administration Aspirin 81 mg 01/14/20 09:00 01/18/20 08:27 Aspirin 81 Mg Enteric Coated Tablet PO 81 mg DAILY MANUELA Administration Atorvastatin Calcium 40 mg 01/13/20 21:00 01/17/20 20:36 Atorvastatin Calcium 40 Mg Tab PO 40 mg HS MANUELA Administration Captopril 12.5 mg 01/13/20 19:33 01/14/20 04:00 Captopril 12.5 Mg Tab PO 12.5 mg HSPRN PRN Administration SBP >170 Clonazepam 1 mg 01/13/20 21:00 01/18/20 08:27 Clonazepam 1 Mg Tab PO 1 mg BID MANUELA Administration Clopidogrel Bisulfate 75 mg 01/14/20 09:00 01/18/20 08:27 Clopidogrel Bisulfate 75 Mg Tab PO 75 mg DAILY MANUELA Administration Dicyclomine HCl 10 mg 01/13/20 21:00 01/18/20 08:27 Dicyclomine 10 Mg Cap PO 10 mg BID MANUELA Administration Fludrocortisone Acetate 0.1 mg 01/16/20 09:00 01/18/20 08:27 Fludrocortisone Acetate 0.1 Mg Tab PO 0.1 mg DAILY MANUELA Administration Levothyroxine Sodium 100 mcg 01/14/20 06:00 01/18/20 05:40 Levothyroxine Sodium 100 Mcg Tab PO 100 mcg 0600 MANUELA Administration Midodrine 5 mg 01/15/20 08:00 01/18/20 08:27 Midodrine Hcl 5 Mg Tab PO 5 mg TID-WM MANUELA Administration Pantoprazole Sodium 40 mg 01/14/20 09:00 01/18/20 08:27 Pantoprazole 40 Mg Tab PO 40 mg DAILY MANUELA Administration Sertraline HCl 200 mg 01/14/20 09:00 01/18/20 08:27 Sertraline Hcl 100 Mg Tab PO 200 mg DAILY MANUELA Administration Temazepam 30 mg 01/13/20 21:00 01/17/20 20:35 Temazepam 15 Mg Cap PO 30 mg HS MANUELA Administration - Exam General Appearance: NAD, awake alert Eye: PERRL, anicteric sclera ENT: no oropharyngeal lesions ENT - other findings: + contusion of R scalp Neck: supple, symmetric, no JVD, no thyromegaly, no lymphadenopathy Heart: RRR, no gallops, no rubs, normal peripheral pulses Heart - other findings: S1, S2 Respiratory: CTAB, no wheezes, no rales, no ronchi, normal chest expansion, no tachypnea Gastrointestinal: soft, non-tender, non-distended, normal bowel sounds, no palpable masses Extremities: no cyanosis, no clubbing, no edema Skin: normal turgor Neurological:Mental status; the patient is alert and oriented to person, place, and time. Recent and remote memory intact. Fund of knowledge is appropriate. Speech is clear. Cranial nerves 2 through 12 intact. Motor; muscle tone and bulk are normal. Strength 5/5 bilaterally. Sensory intact. Cerebellar, finger-nose testing intact. Gait deferred due to the patient's safety reasons. DATA REVIEWED: I reviewed the labs which were significant for hyperglycemia Lab results: WBC 14.1 thou/uL (4.8-10.8) H 01/13/20 10:25 Hgb 15.0 g/dL (12.0-16.0) 01/13/20 10:25 Hct 45.5 % (36.0-47.0) 01/13/20 10:25 MCV 88.4 fL (78.0-98.0) 01/13/20 10:25 Plt Count 431 thou/uL (130-400) H 01/13/20 10:25 Neutrophils % 70.9 % (42.0-75.0) 01/13/20 10:25 Sodium 133 mmol/L (136-145) L 01/13/20 10:25 Potassium 4.3 mmol/L (3.5-5.1) 01/13/20 10:25 Chloride 101 mmol/L (98-107) 01/13/20 10:25 Carbon Dioxide 20 mmol/L (22-29) L 01/13/20 10:25 BUN 15 mg/dL (9.8-20.1) 01/13/20 10:25 Creatinine 0.99 mg/dL (0.6-1.1) 01/13/20 10:25 Glucose 120 mg/dL (70-105) H 01/13/20 10:25 Calcium 9.4 mg/dL (7.8-10.44) 01/13/20 10:25 Total Bilirubin 0.3 mg/dL (0.2-1.2) 01/13/20 10:25 AST 14 U/L (5-34) 01/13/20 10:25 ALT 11 U/L (8-55) 01/13/20 10:25 Alkaline Phosphatase 127 U/L (40-110) H 01/13/20 10:25 Troponin I Less than 0.010 ng/mL (< 0.028) 01/13/20 10:25 Serum Total Protein 7.9 g/dL (6.0-8.3) 01/13/20 10:25 Albumin 4.2 g/dL (3.5-5.0) 01/13/20 10:25 ASSESSMENT AND PLAN: (1) Orthostatic hypotension Code(s): I95.1 - ORTHOSTATIC HYPOTENSION Status: Acute (2) Syncope Code(s): R55 - SYNCOPE AND COLLAPSE Status: Acute (3) Atrial fibrillation Code(s): I48.91 - UNSPECIFIED ATRIAL FIBRILLATION Status: Chronic (4) Bipolar 1 disorder Code(s): F31.9 - BIPOLAR DISORDER, UNSPECIFIED Status: Chronic (5) CAD (coronary artery disease) Code(s): I25.10 - ATHSCL HEART DISEASE OF [place] CORONARY ARTERY W/O ANG PCTRS Status: Chronic (6) Hypothyroid Code(s): E03.9 - HYPOTHYROIDISM, UNSPECIFIED Status: Chronic Ms. Ansley Kelly is a 59-year-old female who was consulted for recurrent syncope. On reviewing the records, the syncope seems more likely secondary to severe orthostatic hypotension which has been documented several times. She is on continuous compression stockings and midodrine to treat orthostatic hypotension. Carotid Dopplers did not reveal hemodynamically significant stenosis. Echo showed ejection fraction 55% to 60%. No thrombus or PFO. Head CT was reviewed and was negative for acute intracranial pathology. Consider EEG to rule out cortical irritability. Neurogenic syncope seems less likely on the differential since the patient has extensive cardiac history. However, we do suggest followup with Neurology as outpatient for workup of autonomic neuropathy and MSA if symptoms do not resolve. Continue home medications. Telemetry. Continue medical management per primary team and Cardiology. Thank you for the consult. Job ID: [id number] [facility]ITALChana
--- NOTE | 2020-01-18 19:10 | EEG ---
DATE OF SERVICE: 01/18/2020 ATTENDING: Yoselin Peoples MD This EEG was performed using 24-channel [employer] video digital EEG machine with 24-disk electrodes. This was an extended 2 hours 6 minutes of inpatient video EEG recording. Digital analysis of the EEG was done for spike and seizure detection, which revealed no abnormalities. BACKGROUND: There is nonsustained posterior background rhythm of 10 to 12 Hz. Minimal reactivity seen with eye opening and closure. HYPERVENTILATION: Not performed. PHOTIC STIMULATION: Not performed. SLEEP: Drowsiness and sleep are observed. EEG DIAGNOSIS: Low amplitude EEG with excessive beta activity intermixed with the background. CLINICAL INTERPRETATION: This EEG is consistent with mild generalized nonspecific cerebral dysfunction. Job ID: [id number]
[2020-01-18] MEDS: Atorvastatin Calcium 40 MG TAB PO SCH (20:11)
[2020-01-18] MEDS: Temazepam 15 MG CAP PO SCH (20:11)
[2020-01-19 05:28] LABS: Free T4 (Free Thyroxine) 1.29 ng/dL (0.70-1.48); Thyroid Stimulating Hormone 1.5218 uIU/mL (0.35-4.94)
[2020-01-19] MEDS: Levothyroxine Sodium 100 MCG TAB PO SCH (06:03)
[2020-01-19] MEDS: Fludrocortisone Acetate 0.1 MG TAB PO SCH (09:36)
[2020-01-19] MEDS: Dicyclomine 10 MG CAP PO SCH ×2 (09:36→20:24)
[2020-01-19] MEDS: Midodrine HCl 5 MG TAB PO SCH ×3 (09:36→15:42)
[2020-01-19] MEDS: Clopidogrel Bisulfate 75 MG TAB PO SCH (09:36)
[2020-01-19] MEDS: Aspirin 81 mg Enteric Coated Tablet PO SCH (09:36)
[2020-01-19] MEDS: Amiodarone 200 MG TAB PO SCH (09:36)
[2020-01-19] MEDS: clonazePAM 1 MG TAB PO SCH ×2 (09:37→20:19)
--- NOTE | 2020-01-19 11:11 | PDOC.HOSPP ---
- Subjective Encounter Date: 01/19/20 Encounter Time: 11:00 Subjective: f/u for orthostatic hypotension currently managed with Florinef/Midodrine/Compression stocking/ABD binder. EEG performed but no seizure activity noted. - Objective Vital Signs & Weight: Vital Signs (12 hours) Temp Pulse Resp BP BP Pulse Ox 01/19/20 07:20 98.0 F 61 16 129/93 H 95 01/19/20 04:00 97.8 F 60 14 129/83 94 L Weight Weight 183 lb 10.067 oz I&O: 01/18/20 01/19/20 01/20/20 06:59 06:59 06:59 Intake Total 948 1690 Output Total 850 950 Balance 98 740 Result Diagrams: 01/18/20 04:23 01/18/20 04:23 Additional Labs: Microbiology 01/17/20 00:17 Urine voided Urine Culture - Preliminary Gram Negative Binu Presumptive Kleb/Enterobacter 01/17/20 00:17 Urine voided Urine Culture - Preliminary Laboratory Tests 01/13/20 01/13/20 01/13/20 10:25 10:25 17:06 D-Dimer 1.02 H Magnesium Troponin I Less than 0.010 SARS-CoV-2 (PCR) Not Detected 01/13/20 01/13/20 01/15/20 19:50 19:50 04:19 D-Dimer Magnesium 1.7 Troponin I 0.013 Less than 0.010 SARS-CoV-2 (PCR) Radiology Reviewed by me: Yes (EEG - no seizure activity) EKG Reviewed by me: Yes (Tele - V-pacing) Hospitalist ROS - Medication Medications: Active Medications Generic Name Dose Route Start Last Admin Trade Name Freq PRN Reason Stop Dose Admin Acetaminophen 650 mg 01/15/20 12:06 01/16/20 00:28 Acetaminophen 325 Mg Tab PO 650 mg Q6H PRN Administration Headache Amiodarone HCl 200 mg 01/14/20 09:00 01/19/20 09:36 Amiodarone 200 Mg Tab PO 200 mg DAILY MANUELA Administration Aspirin 81 mg 01/14/20 09:00 01/19/20 09:36 Aspirin 81 Mg Enteric Coated Tablet PO 81 mg DAILY MANUELA Administration Atorvastatin Calcium 40 mg 01/13/20 21:00 01/18/20 20:11 Atorvastatin Calcium 40 Mg Tab PO 40 mg HS MANUELA Administration Captopril 12.5 mg 01/13/20 19:33 01/14/20 04:00 Captopril 12.5 Mg Tab PO 12.5 mg HSPRN PRN Administration SBP >170 Clonazepam 1 mg 01/13/20 21:00 01/19/20 09:37 Clonazepam 1 Mg Tab PO 1 mg BID MANUELA Administration Clopidogrel Bisulfate 75 mg 01/14/20 09:00 01/19/20 09:36 Clopidogrel Bisulfate 75 Mg Tab PO 75 mg DAILY [facility]UELA Administration Dicyclomine HCl 10 mg 01/13/20 21:00 01/19/20 09:36 Dicyclomine 10 Mg Cap PO 10 mg BID MANUELA Administration Fludrocortisone Acetate 0.1 mg 01/16/20 09:00 01/19/20 09:36 Fludrocortisone Acetate 0.1 Mg Tab PO 0.1 mg DAILY [facility]ELA Administration Levothyroxine Sodium 100 mcg 01/14/20 06:00 01/19/20 06:03 Levothyroxine Sodium 100 Mcg Tab PO 100 mcg 0600 MANUELA Administration Midodrine 5 mg 01/15/20 08:00 01/19/20 09:36 Midodrine Hcl 5 Mg Tab PO 5 mg TID-WM MANUELA Administration Pantoprazole Sodium 40 mg 01/14/20 09:00 01/19/20 09:36 Pantoprazole 40 Mg Tab PO 40 mg DAILY [facility]UELA Administration Sertraline HCl 200 mg 01/14/20 09:00 01/19/20 09:36 Sertraline Hcl 100 Mg Tab PO 200 mg DAILY [facility]UELA Administration Temazepam 30 mg 01/13/20 21:00 01/18/20 20:11 Temazepam 15 Mg Cap PO 30 mg HS MANUELA Administration - Exam General Appearance: NAD, awake alert Eye: PERRL, anicteric sclera ENT: normocephalic atraumatic, no oropharyngeal lesions Neck: supple, symmetric, no JVD, no thyromegaly, no lymphadenopathy Heart: RRR, no gallops, no rubs, normal peripheral pulses Heart - other findings: S1, S2 Respiratory: CTAB, no wheezes, no rales, no ronchi, normal chest expansion Gastrointestinal: soft, non-tender, non-distended, normal bowel sounds, no palpable masses Extremities: no cyanosis, no clubbing, no edema Skin: normal turgor Neurological: cranial nerve grossly intact, no new deficit Musculoskeletal: normal tone, normal strength, no muscle wasting Psychiatric: normal affect, A&O x 3 Hosp A/P (1) Orthostatic hypotension Code(s): I95.1 - ORTHOSTATIC HYPOTENSION Status: Acute Plan: Continue Florinef/Midodrine/Compression stocking/ABD binder, ambulate with assist/PT (2) Syncope Code(s): R55 - SYNCOPE AND COLLAPSE Status: Acute Plan: Secondary to #1 (3) Atrial fibrillation Code(s): I48.91 - UNSPECIFIED ATRIAL FIBRILLATION Status: Chronic (4) Bipolar 1 disorder Code(s): F31.9 - BIPOLAR DISORDER, UNSPECIFIED Status: Chronic (5) CAD (coronary artery disease) Code(s): I25.10 - ATHSCL HEART DISEASE OF [place] CORONARY ARTERY W/O ANG PCTRS Status: Chronic (6) Hypothyroid Code(s): E03.9 - HYPOTHYROIDISM, UNSPECIFIED Status: Chronic Plan: Continue Levothyroxine 100mcg daily (7) UTI (urinary tract infection) Status: Acute Plan: Enterobacter/Klebsiella spp, start Levaquin 500mg po daily - Plan continue antibiotics, PT/OT, social sciences lecturer, out of bed/ambulate, DVT proph w/SCDs Stable currently Continue Florinef/Midodrine Abd binder/Compression stockings OOB with PT Appreciate Neurology/Cardiology assistance Start Levaquin 500mg po daily for UTI Likely home in 24h
[2020-01-19] MEDS: Atorvastatin Calcium 40 MG TAB PO SCH (20:19)
[2020-01-19] MEDS: Temazepam 15 MG CAP PO SCH (20:19)
[2020-01-20] MEDS: Levothyroxine Sodium 100 MCG TAB PO SCH (05:06)
[2020-01-20] MEDS: Midodrine HCl 5 MG TAB PO SCH ×3 (08:37→14:55)
[2020-01-20] MEDS: Aspirin 81 mg Enteric Coated Tablet PO SCH (08:37)
[2020-01-20] MEDS: Clopidogrel Bisulfate 75 MG TAB PO SCH (08:38)
[2020-01-20] MEDS: Amiodarone 200 MG TAB PO SCH (08:38)
[2020-01-20] MEDS: Dicyclomine 10 MG CAP PO SCH ×2 (08:38→21:21)
[2020-01-20] MEDS: Fludrocortisone Acetate 0.1 MG TAB PO SCH (08:38)
[2020-01-20] MEDS: clonazePAM 1 MG TAB PO SCH ×2 (08:38→21:21)
--- NOTE | 2020-01-20 14:34 | PDOC.HOSPP ---
- Subjective Encounter Date: 01/20/20 Encounter Time: 14:30 Subjective: f/u persistent orthostatic hypotension tx with Midodrine/Florinef/Compression stockings. Feels ok unless standing up. - Objective Vital Signs & Weight: Vital Signs (12 hours) Temp Pulse Resp BP BP BP Pulse Ox 01/20/20 12:24 191/114 H 01/20/20 11:00 98.4 F 62 16 181/108 H 96 01/20/20 08:44 128/83 01/20/20 08:32 75/50 L 126/78 01/20/20 07:10 98.4 F 60 12 132/97 H 95 01/20/20 05:00 97.5 F L 61 16 109/68 95 Weight Weight 181 lb I&O: 01/19/20 01/20/20 01/21/20 06:59 06:59 06:59 Intake Total 1690 1180 Output Total 950 1525 Balance 740 -345 Result Diagrams: 01/18/20 04:23 01/18/20 04:23 Additional Labs: Microbiology 01/17/20 00:17 Urine voided Urine Culture - Preliminary Gram Negative Binu Presumptive Kleb/Enterobacter 01/17/20 00:17 Urine voided Urine Culture - Preliminary Laboratory Tests 01/13/20 01/13/20 01/13/20 10:25 10:25 17:06 D-Dimer 1.02 H Magnesium Troponin I Less than 0.010 Free T4 TSH 3rd Generation Cortisol SARS-CoV-2 (PCR) Not Detected 01/13/20 01/13/20 01/15/20 19:50 19:50 04:19 D-Dimer Magnesium 1.7 Troponin I 0.013 Less than 0.010 Free T4 TSH 3rd Generation Cortisol SARS-CoV-2 (PCR) 01/19/20 01/19/20 03:55 18:18 D-Dimer Magnesium Troponin I Free T4 1.29 TSH 3rd Generation 1.5218 Cortisol 8.30 SARS-CoV-2 (PCR) Radiology Reviewed by me: Yes (EEG - no seizure activity) EKG Reviewed by me: Yes (Tele - SR) Hospitalist ROS - Medication Medications: Active Medications Generic Name Dose Route Start Last Admin Trade Name Freq PRN Reason Stop Dose Admin Acetaminophen 650 mg 01/15/20 12:06 01/16/20 00:28 Acetaminophen 325 Mg Tab PO 650 mg Q6H PRN Administration Headache Amiodarone HCl 200 mg 01/14/20 09:00 01/20/20 08:38 Amiodarone 200 Mg Tab PO 200 mg DAILY MANUELA Administration Aspirin 81 mg 01/14/20 09:00 01/20/20 08:37 Aspirin 81 Mg Enteric Coated Tablet PO 81 mg DAILY MANUELA Administration Atorvastatin Calcium 40 mg 01/13/20 21:00 01/19/20 20:19 Atorvastatin Calcium 40 Mg Tab PO 40 mg HS MANUELA Administration Captopril 12.5 mg 01/13/20 19:33 01/14/20 04:00 Captopril 12.5 Mg Tab PO 12.5 mg HSPRN PRN Administration SBP >170 Clonazepam 1 mg 01/13/20 21:00 01/20/20 08:38 Clonazepam 1 Mg Tab PO 1 mg BID MANUELA Administration Dicyclomine HCl 10 mg 01/13/20 21:00 01/20/20 08:38 Dicyclomine 10 Mg Cap PO 10 mg BID MANUELA Administration Fludrocortisone Acetate 0.1 mg 01/16/20 09:00 01/20/20 08:38 Fludrocortisone Acetate 0.1 Mg Tab PO 0.1 mg DAILY MANUELA Administration Levofloxacin 500 mg 01/20/20 06:00 01/20/20 05:06 Levofloxacin 500 Mg Tab PO 500 mg 0600 MANUELA Administration Levothyroxine Sodium 100 mcg 01/14/20 06:00 01/20/20 05:06 Levothyroxine Sodium 100 Mcg Tab PO 100 mcg 0600 MANUELA Administration Midodrine 5 mg 01/15/20 08:00 01/20/20 12:25 Midodrine Hcl 5 Mg Tab PO Not Given TID-WM MANUELA Pantoprazole Sodium 40 mg 01/14/20 09:00 01/20/20 08:38 Pantoprazole 40 Mg Tab PO 40 mg DAILY MANUELA Administration Sertraline HCl 200 mg 01/14/20 09:00 01/20/20 08:37 Sertraline Hcl 100 Mg Tab PO 200 mg DAILY MANUELA Administration Temazepam 30 mg 01/13/20 21:00 01/19/20 20:19 Temazepam 15 Mg Cap PO 30 mg HS MANUELA Administration - Exam General Appearance: NAD, awake alert Eye: PERRL, anicteric sclera ENT: normocephalic atraumatic, no oropharyngeal lesions Neck: supple, symmetric, no JVD, no thyromegaly, no lymphadenopathy Heart: RRR, no gallops, no rubs, normal peripheral pulses Heart - other findings: S1, S2 Respiratory: CTAB, no wheezes, no rales, no ronchi, normal chest expansion, no tachypnea Gastrointestinal: soft, non-tender, non-distended, normal bowel sounds, no palpable masses Extremities: no cyanosis, no clubbing, no edema Skin: normal turgor, no lesions Neurological: cranial nerve grossly intact, no new deficit Musculoskeletal: normal tone, normal strength Psychiatric: normal affect, A&O x 3 Hosp A/P (1) Orthostatic hypotension Code(s): I95.1 - ORTHOSTATIC HYPOTENSION Status: Acute Plan: Severe and persistent despite Florinef/Midodrine/Compression stockings, may consider higher level of care to programs specializing in severe orthostatic hypotension (2) Syncope Code(s): R55 - SYNCOPE AND COLLAPSE Status: Acute Plan: Secondary to #1 (3) Atrial fibrillation Code(s): I48.91 - UNSPECIFIED ATRIAL FIBRILLATION Status: Chronic (4) Bipolar 1 disorder Code(s): F31.9 - BIPOLAR DISORDER, UNSPECIFIED Status: Chronic (5) CAD (coronary artery disease) Code(s): I25.10 - ATHSCL HEART DISEASE OF [place] CORONARY ARTERY W/O ANG PCTRS Status: Chronic (6) Hypothyroid Code(s): E03.9 - HYPOTHYROIDISM, UNSPECIFIED Status: Chronic (7) UTI (urinary tract infection) Status: Acute - Plan social worker health services, DVT proph w/SCDs Stable currently Continue Florinef/Midodrine Abd binder/Compression stockings OOB with PT Appreciate Neurology/Cardiology assistance Start Levaquin 500mg po daily for UTI Consider transfer to programs specializing in orthostatic hypotension
[2020-01-20] MEDS: Temazepam 15 MG CAP PO SCH (21:21)
[2020-01-20] MEDS: Atorvastatin Calcium 40 MG TAB PO SCH (21:21)
[2020-01-21] MEDS: Levothyroxine Sodium 100 MCG TAB PO SCH (06:01)
[2020-01-21] MEDS: Amiodarone 200 MG TAB PO SCH (08:18)
[2020-01-21] MEDS: clonazePAM 1 MG TAB PO SCH ×2 (08:18→21:04)
[2020-01-21] MEDS: Aspirin 81 mg Enteric Coated Tablet PO SCH (08:19)
[2020-01-21] MEDS: Fludrocortisone Acetate 0.1 MG TAB PO SCH (08:19)
[2020-01-21] MEDS: Dicyclomine 10 MG CAP PO SCH ×2 (08:19→21:03)
[2020-01-21] MEDS: Midodrine HCl 5 MG TAB PO SCH ×3 (08:19→17:32)
--- NOTE | 2020-01-21 14:01 | PDOC.HOSPP ---
- Subjective Encounter Date: 01/21/20 Encounter Time: 14:00 Subjective: f/u for severe orthostatic hypotension recalcitrant to current Midodrine/Florinef. - Objective Vital Signs & Weight: Vital Signs (12 hours) Temp Pulse Pulse Pulse Pulse Resp BP 01/21/20 11:50 99.0 F 65 11 L 01/21/20 09:46 68 63 64 83/54 L 01/21/20 07:34 98.0 F 60 13 01/21/20 03:11 97.7 F 60 15 BP BP BP BP BP Pulse Ox Pulse Ox 01/21/20 11:50 138/97 H 96 01/21/20 09:46 72/48 L 117/83 94 L 01/21/20 07:34 90/55 L 163/100 H 95 01/21/20 03:11 127/90 94 L Pulse Ox Pulse Ox 01/21/20 11:50 01/21/20 09:46 94 L 94 L 01/21/20 07:34 01/21/20 03:11 Weight Weight 184 lb I&O: 01/20/20 01/21/20 01/22/20 06:59 06:59 06:59 Intake Total 1180 1000 Output Total 1525 1150 Balance -345 -150 Result Diagrams: 01/18/20 04:23 01/18/20 04:23 Additional Labs: Microbiology 01/17/20 00:17 Urine voided Urine Culture - Preliminary Gram Negative Binu Presumptive Kleb/Enterobacter 01/17/20 00:17 Urine voided Urine Culture - Preliminary Laboratory Tests 01/13/20 01/13/20 01/13/20 10:25 10:25 17:06 D-Dimer 1.02 H Magnesium Troponin I Less than 0.010 Free T4 TSH 3rd Generation Cortisol SARS-CoV-2 (PCR) Not Detected 01/13/20 01/13/20 01/15/20 19:50 19:50 04:19 D-Dimer Magnesium 1.7 Troponin I 0.013 Less than 0.010 Free T4 TSH 3rd Generation Cortisol SARS-CoV-2 (PCR) 01/19/20 01/19/20 03:55 18:18 D-Dimer Magnesium Troponin I Free T4 1.29 TSH 3rd Generation 1.5218 Cortisol 8.30 SARS-CoV-2 (PCR) EKG Reviewed by me: Yes (Tele - SR) Hospitalist ROS - Medication Medications: Active Medications Generic Name Dose Route Start Last Admin Trade Name Freq PRN Reason Stop Dose Admin Acetaminophen 650 mg 01/15/20 12:06 01/16/20 00:28 Acetaminophen 325 Mg Tab PO 650 mg Q6H PRN Administration Headache Amiodarone HCl 200 mg 01/14/20 09:00 01/21/20 08:18 Amiodarone 200 Mg Tab PO 200 mg DAILY MANUELA Administration Aspirin 81 mg 01/14/20 09:00 01/21/20 08:19 Aspirin 81 Mg Enteric Coated Tablet PO 81 mg DAILY MANUELA Administration Atorvastatin Calcium 40 mg 01/13/20 21:00 01/20/20 21:21 Atorvastatin Calcium 40 Mg Tab PO 40 mg HS MANUELA Administration Captopril 12.5 mg 01/13/20 19:33 01/14/20 04:00 Captopril 12.5 Mg Tab PO 12.5 mg HSPRN PRN Administration SBP >170 Clonazepam 1 mg 01/13/20 21:00 01/21/20 08:18 Clonazepam 1 Mg Tab PO 1 mg BID MANUELA Administration Dicyclomine HCl 10 mg 01/13/20 21:00 01/21/20 08:19 Dicyclomine 10 Mg Cap PO 10 mg BID MANUELA Administration Fludrocortisone Acetate 0.1 mg 01/16/20 09:00 01/21/20 08:19 Fludrocortisone Acetate 0.1 Mg Tab PO 0.1 mg DAILY MANUELA Administration Levofloxacin 500 mg 01/20/20 06:00 01/21/20 06:01 Levofloxacin 500 Mg Tab PO 500 mg 0600 MANUELA Administration Levothyroxine Sodium 100 mcg 01/14/20 06:00 01/21/20 06:01 Levothyroxine Sodium 100 Mcg Tab PO 100 mcg 0600 MANUELA Administration Midodrine 5 mg 01/15/20 08:00 01/21/20 11:55 Midodrine Hcl 5 Mg Tab PO 5 mg TID-WM MANUELA Administration Pantoprazole Sodium 40 mg 01/14/20 09:00 01/21/20 08:19 Pantoprazole 40 Mg Tab PO 40 mg DAILY MANUELA Administration Sertraline HCl 200 mg 01/14/20 09:00 01/21/20 08:19 Sertraline Hcl 100 Mg Tab PO 200 mg DAILY MANUELA Administration Temazepam 30 mg 01/13/20 21:00 01/20/20 21:21 Temazepam 15 Mg Cap PO 30 mg HS MANUELA Administration - Exam General Appearance: NAD, awake alert Eye: PERRL, anicteric sclera ENT: normocephalic atraumatic, no oropharyngeal lesions Neck: supple, symmetric, no JVD, no thyromegaly, no lymphadenopathy Heart: RRR, no gallops, no rubs, normal peripheral pulses Heart - other findings: S1, S2 Respiratory: CTAB, no wheezes, no rales, no ronchi, normal chest expansion Gastrointestinal: soft, non-tender, non-distended, normal bowel sounds, no palpable masses Extremities: no cyanosis, no clubbing, no edema Skin: normal turgor Neurological: cranial nerve grossly intact, no new deficit Musculoskeletal: normal tone, normal strength Psychiatric: normal affect, A&O x 3 Hosp A/P (1) Orthostatic hypotension Code(s): I95.1 - ORTHOSTATIC HYPOTENSION Status: Acute Plan: Persistent, increase Florinef 0.3mg daily, increase Midodrine 10mg TID, compression stockings, check paraneoplastic panel (2) Syncope Code(s): R55 - SYNCOPE AND COLLAPSE Status: Acute (3) Atrial fibrillation Code(s): I48.91 - UNSPECIFIED ATRIAL FIBRILLATION Status: Chronic (4) Bipolar 1 disorder Code(s): F31.9 - BIPOLAR DISORDER, UNSPECIFIED Status: Chronic (5) CAD (coronary artery disease) Code(s): I25.10 - ATHSCL HEART DISEASE OF [place] CORONARY ARTERY W/O ANG PCTRS Status: Chronic (6) Hypothyroid Code(s): E03.9 - HYPOTHYROIDISM, UNSPECIFIED Status: Chronic (7) UTI (urinary tract infection) Status: Acute Plan: Continue Levaquin - Plan continue antibiotics, PT/OT, social insurance analyst, DVT proph w/SCDs Stable currently Increase Midodrine/Florinef dosing Discussed with Dr. Forrester in [place], [place] who specializes in persistent orthostatic hypotension Abd binder/Compression stockings OOB with PT Appreciate Neurology/Cardiology assistance Start Levaquin 500mg po daily for UTI Consider transfer to programs specializing in orthostatic hypotension May benefit from trial of IVIG in context of potential autoimmune mediated process Lab: Paraneoplastic panel sendout
[2020-01-21] MEDS ORDERED: Fludrocortisone Acetate 0.1 MG TAB PO SCH (14:15)
--- NOTE | 2020-01-21 16:23 | EKG ---
Test Reason : Blood Pressure : / mmHG Vent. Rate : 060 BPM Atrial Rate : 060 BPM P-R Int : 170 ms QRS Dur : 084 ms QT Int : 470 ms P-R-T Axes : 066 044 044 degrees QTc Int : 470 ms Electronic atrial pacemaker Nonspecific ST and T wave abnormality Prolonged QT Abnormal ECG Confirmed by SEVERO VENTURA DO ([id number]), news video editor DERIC ADORNO ([id number]) on 01/21/2020 4:22:29 PM Referred By: Confirmed By:SEVERO VENTURA DO
[2020-01-21] MEDS: Temazepam 15 MG CAP PO SCH (21:03)
[2020-01-21] MEDS: Atorvastatin Calcium 40 MG TAB PO SCH (21:03)
[2020-01-22] MEDS: Levothyroxine Sodium 100 MCG TAB PO SCH (06:06)
[2020-01-22] MEDS: Amiodarone 200 MG TAB PO SCH (09:53)
[2020-01-22] MEDS: Docusate 100 MG CAP PO SCH ×2 (09:53→20:20)
[2020-01-22] MEDS: Aspirin 81 mg Enteric Coated Tablet PO SCH (09:53)
[2020-01-22] MEDS: Midodrine HCl 5 MG TAB PO SCH ×3 (09:56→16:25)
[2020-01-22] MEDS: Fludrocortisone Acetate 0.1 MG TAB PO SCH (09:57)
[2020-01-22] MEDS: Dicyclomine 10 MG CAP PO SCH ×2 (09:57→20:19)
[2020-01-22] MEDS: clonazePAM 1 MG TAB PO SCH ×2 (09:57→20:20)
--- NOTE | 2020-01-22 10:47 | PDOC.HOSPP ---
- Subjective Encounter Date: 01/22/20 Encounter Time: 10:45 Subjective: f/u for severe orthostatic hypotension recalcitrant to Midodrine/Florinef currently. Nursing reports episode of syncope in bed this am after sitting up. - Objective Vital Signs & Weight: Vital Signs (12 hours) Temp Pulse Resp BP BP Pulse Ox 01/22/20 07:33 98.0 F 58 L 16 92/68 95 01/22/20 04:00 98.4 F 60 20 118/86 95 01/21/20 22:56 60 133/96 H Weight Weight 184 lb 9 oz I&O: 01/21/20 01/22/20 01/23/20 06:59 06:59 06:59 Intake Total 1000 850 Output Total 1150 1375 Balance -150 -525 Result Diagrams: 01/18/20 04:23 01/18/20 04:23 Additional Labs: Microbiology 01/17/20 00:17 Urine voided Urine Culture - Preliminary Gram Negative Binu Presumptive Kleb/Enterobacter 01/17/20 00:17 Urine voided Urine Culture - Preliminary Laboratory Tests 01/13/20 01/13/20 01/13/20 10:25 10:25 17:06 D-Dimer 1.02 H Magnesium Troponin I Less than 0.010 Free T4 TSH 3rd Generation Cortisol SARS-CoV-2 (PCR) Not Detected 01/13/20 01/13/20 01/15/20 19:50 19:50 04:19 D-Dimer Magnesium 1.7 Troponin I 0.013 Less than 0.010 Free T4 TSH 3rd Generation Cortisol SARS-CoV-2 (PCR) 01/19/20 01/19/20 03:55 18:18 D-Dimer Magnesium Troponin I Free T4 1.29 TSH 3rd Generation 1.5218 Cortisol 8.30 SARS-CoV-2 (PCR) EKG Reviewed by me: Yes (Tele - SR) Hospitalist ROS - Medication Medications: Active Medications Generic Name Dose Route Start Last Admin Trade Name Freq PRN Reason Stop Dose Admin Acetaminophen 650 mg 01/15/20 12:06 01/16/20 00:28 Acetaminophen 325 Mg Tab PO 650 mg Q6H PRN Administration Headache Amiodarone HCl 200 mg 01/14/20 09:00 01/22/20 09:53 Amiodarone 200 Mg Tab PO 200 mg DAILY MANUELA Administration Aspirin 81 mg 01/14/20 09:00 01/22/20 09:53 Aspirin 81 Mg Enteric Coated Tablet PO 81 mg DAILY MANUELA Administration Atorvastatin Calcium 40 mg 01/13/20 21:00 01/21/20 21:03 Atorvastatin Calcium 40 Mg Tab PO 40 mg HS MANUELA Administration Captopril 12.5 mg 01/13/20 19:33 01/21/20 21:03 Captopril 12.5 Mg Tab PO 12.5 mg HSPRN PRN Administration SBP >170 Clonazepam 1 mg 01/13/20 21:00 01/22/20 09:57 Clonazepam 1 Mg Tab PO 1 mg BID MANUELA Administration Dicyclomine HCl 10 mg 01/13/20 21:00 01/22/20 09:57 Dicyclomine 10 Mg Cap PO 10 mg BID MANUELA Administration Docusate Sodium 100 mg 01/22/20 09:00 01/22/20 09:53 Docusate 100 Mg Cap PO 100 mg BID MANUELA Administration Fludrocortisone Acetate 0.3 mg 01/21/20 14:13 01/22/20 09:57 Fludrocortisone Acetate 0.1 Mg Tab PO 0.3 mg DAILY MANUELA Administration Levofloxacin 500 mg 01/20/20 06:00 01/22/20 06:06 Levofloxacin 500 Mg Tab PO 500 mg 0600 MANUELA Administration Levothyroxine Sodium 100 mcg 01/14/20 06:00 01/22/20 06:06 Levothyroxine Sodium 100 Mcg Tab PO 100 mcg 0600 MANUELA Administration Midodrine 10 mg 01/21/20 17:00 01/22/20 09:56 Midodrine Hcl 5 Mg Tab PO 10 mg TID-WM MANUELA Administration Pantoprazole Sodium 40 mg 01/14/20 09:00 01/22/20 09:57 Pantoprazole 40 Mg Tab PO 40 mg DAILY MANUELA Administration Sertraline HCl 200 mg 01/14/20 09:00 01/22/20 09:54 Sertraline Hcl 100 Mg Tab PO 200 mg DAILY MANUELA Administration Temazepam 30 mg 01/13/20 21:00 01/21/20 21:03 Temazepam 15 Mg Cap PO 30 mg HS MANUELA Administration - Exam General Appearance: NAD, awake alert Eye: PERRL, anicteric sclera ENT: normocephalic atraumatic, no oropharyngeal lesions Neck: supple, symmetric, no JVD, no thyromegaly, no lymphadenopathy Heart: RRR, no murmur, no gallops, no rubs, normal peripheral pulses Heart - other findings: S1, S2 Respiratory: CTAB, no wheezes, no rales, no ronchi, normal chest expansion, no tachypnea Gastrointestinal: soft, non-tender, non-distended, normal bowel sounds, no palpable masses Extremities: no cyanosis, no clubbing, no edema Skin: normal turgor Neurological: cranial nerve grossly intact, no new deficit Musculoskeletal: normal tone, normal strength, no muscle wasting Psychiatric: A&O x 3, flat affect Hosp A/P (1) Orthostatic hypotension Code(s): I95.1 - ORTHOSTATIC HYPOTENSION Status: Acute Plan: Continue increased dosing with Midodrine/Florinef, may need to consider trial of IVIG if no improvement with current therapy (2) Syncope Code(s): R55 - SYNCOPE AND COLLAPSE Status: Acute Plan: See above #1 (3) Atrial fibrillation Code(s): I48.91 - UNSPECIFIED ATRIAL FIBRILLATION Status: Chronic (4) Bipolar 1 disorder Code(s): F31.9 - BIPOLAR DISORDER, UNSPECIFIED Status: Chronic (5) CAD (coronary artery disease) Code(s): I25.10 - ATHSCL HEART DISEASE OF [place] CORONARY ARTERY W/O ANG PCTRS Status: Chronic (6) Hypothyroid Code(s): E03.9 - HYPOTHYROIDISM, UNSPECIFIED Status: Chronic (7) UTI (urinary tract infection) Status: Acute Plan: Continue Levaquin - Plan continue antibiotics, social media manager, out of bed/ambulate, DVT proph w/SCDs Stable currently Increase Midodrine/Florinef dosing Discussed with Dr. Forrester in [place], [place] who specializes in persistent orthostatic hypotension Abd binder/Compression stockings OOB with PT Appreciate Neurology/Cardiology assistance Continue Levaquin 500mg po daily for UTI Consider transfer to programs specializing in orthostatic hypotension May benefit from trial of IVIG in context of potential autoimmune mediated process Lab: Paraneoplastic panel drawn 01/21/20 Updated pt regarding plan
[2020-01-22 13:43] VITALS: BMI 31.6
[2020-01-22 14:23] LABS: Ref Lab Test Ordered PARANEOPLASTIC PANEL; Reference Lab Name LABCORP
[2020-01-22] MEDS ORDERED: predniSONE 20 MG TAB PO SCH (18:30)
[2020-01-22] MEDS ORDERED: methylPREDNISolone Sod Succ/PF 125 MG/2 ML VIAL IVP SCH (18:30)
[2020-01-22] MEDS: Temazepam 15 MG CAP PO SCH (20:20)
[2020-01-22] MEDS: Atorvastatin Calcium 40 MG TAB PO SCH (20:20)
[2020-01-23] MEDS: Levothyroxine Sodium 100 MCG TAB PO SCH (06:18)
[2020-01-23] MEDS: Acetaminophen 325 MG TAB PO PRN (08:04)
[2020-01-23] MEDS ORDERED: methylPREDNISolone Sod Succ/PF 125 MG/2 ML VIAL IVP SCH (09:00)
[2020-01-23] MEDS: Docusate 100 MG CAP PO SCH ×2 (09:14→19:59)
[2020-01-23] MEDS: clonazePAM 1 MG TAB PO SCH ×2 (09:15→19:59)
[2020-01-23] MEDS: Dicyclomine 10 MG CAP PO SCH ×2 (09:15→20:01)
[2020-01-23] MEDS: Fludrocortisone Acetate 0.1 MG TAB PO SCH (09:16)
[2020-01-23] MEDS: predniSONE 20 MG TAB PO SCH (09:16)
[2020-01-23] MEDS: Amiodarone 200 MG TAB PO SCH (09:16)
[2020-01-23] MEDS: Midodrine HCl 5 MG TAB PO SCH ×3 (09:17→17:35)
[2020-01-23] MEDS: Aspirin 81 mg Enteric Coated Tablet PO SCH (09:18)
--- NOTE | 2020-01-23 10:39 | PDOC.HOSPP ---
- Subjective Encounter Date: 01/23/20 Encounter Time: 10:30 Subjective: f/u for severe orthostatic hypotension on current Midodrine/Florinef/Prednisone. - Objective Vital Signs & Weight: Vital Signs (12 hours) Temp Pulse Resp BP Pulse Ox 01/23/20 07:45 98.0 F 72 16 100/59 L 96 01/23/20 05:20 98.4 F 62 18 122/75 92 L 01/22/20 23:40 62 105/65 Weight Admit Weight 182 lb 1.629 oz Weight 183 lb 4.8 oz I&O: 01/22/20 01/23/20 01/24/20 06:59 06:59 06:59 Intake Total 850 1080 Output Total 1375 1300 Balance -525 -220 Result Diagrams: 01/18/20 04:23 01/18/20 04:23 Additional Labs: Microbiology 01/17/20 00:17 Urine voided Urine Culture - Preliminary Gram Negative Binu Presumptive Kleb/Enterobacter 01/17/20 00:17 Urine voided Urine Culture - Preliminary Laboratory Tests 01/13/20 01/13/20 01/13/20 10:25 10:25 17:06 D-Dimer 1.02 H Magnesium Troponin I Less than 0.010 Free T4 TSH 3rd Generation Cortisol SARS-CoV-2 (PCR) Not Detected 01/13/20 01/13/20 01/15/20 19:50 19:50 04:19 D-Dimer Magnesium 1.7 Troponin I 0.013 Less than 0.010 Free T4 TSH 3rd Generation Cortisol SARS-CoV-2 (PCR) 01/19/20 01/19/20 03:55 18:18 D-Dimer Magnesium Troponin I Free T4 1.29 TSH 3rd Generation 1.5218 Cortisol 8.30 SARS-CoV-2 (PCR) EKG Reviewed by me: Yes (Tele - SR intermittent pacing) Hospitalist ROS - Medication Medications: Active Medications Generic Name Dose Route Start Last Admin Trade Name Freq PRN Reason Stop Dose Admin Acetaminophen 650 mg 01/15/20 12:06 01/23/20 08:04 Acetaminophen 325 Mg Tab PO 650 mg Q6H PRN Administration Headache Amiodarone HCl 200 mg 01/14/20 09:00 01/23/20 09:16 Amiodarone 200 Mg Tab PO 200 mg DAILY MANUELA Administration Aspirin 81 mg 01/14/20 09:00 01/23/20 09:18 Aspirin 81 Mg Enteric Coated Tablet PO 81 mg DAILY MANUELA Administration Atorvastatin Calcium 40 mg 01/13/20 21:00 01/22/20 20:20 Atorvastatin Calcium 40 Mg Tab PO 40 mg HS MANUELA Administration Captopril 12.5 mg 01/13/20 19:33 01/22/20 16:36 Captopril 12.5 Mg Tab PO 12.5 mg HSPRN PRN Administration SBP >170 Clonazepam 1 mg 01/13/20 21:00 01/23/20 09:15 Clonazepam 1 Mg Tab PO 1 mg BID MANUELA Administration Dicyclomine HCl 10 mg 01/13/20 21:00 01/23/20 09:15 Dicyclomine 10 Mg Cap PO 10 mg BID MANUELA Administration Docusate Sodium 100 mg 01/22/20 09:00 01/23/20 09:14 Docusate 100 Mg Cap PO 100 mg BID MANUELA Administration Fludrocortisone Acetate 0.3 mg 01/21/20 14:13 01/23/20 09:16 Fludrocortisone Acetate 0.1 Mg Tab PO 0.3 mg DAILY MANUELA Administration Levofloxacin 500 mg 01/20/20 06:00 01/23/20 06:18 Levofloxacin 500 Mg Tab PO Not Given 0600 MANUELA Levothyroxine Sodium 100 mcg 01/14/20 06:00 01/23/20 06:18 Levothyroxine Sodium 100 Mcg Tab PO Not Given 0600 MANUELA Methylprednisolone Sodium Succinate 125 mg 01/23/20 09:00 01/23/20 09:18 Methylprednisolone Sod Succ/Pf 125 Mg/2 Ml Vial IVP 125 mg DAILY MANUELA Administration Midodrine 10 mg 01/21/20 17:00 01/23/20 09:17 Midodrine Hcl 5 Mg Tab PO 10 mg TID-WM MANUELA Administration Pantoprazole Sodium 40 mg 01/14/20 09:00 01/23/20 09:15 Pantoprazole 40 Mg Tab PO 40 mg DAILY MANUELA Administration Prednisone 40 mg 01/23/20 08:00 01/23/20 09:16 Prednisone 20 Mg Tab PO 40 mg QAM-WM MANUELA Administration Sertraline HCl 200 mg 01/14/20 09:00 01/23/20 09:15 Sertraline Hcl 100 Mg Tab PO 200 mg DAILY MANUELA Administration Temazepam 30 mg 01/13/20 21:00 01/22/20 20:20 Temazepam 15 Mg Cap PO 30 mg HS MANUELA Administration - Exam General Appearance: NAD, awake alert Eye: PERRL, anicteric sclera ENT: normocephalic atraumatic, no oropharyngeal lesions Neck: supple, symmetric, no JVD, no thyromegaly, no lymphadenopathy Heart: RRR, no murmur, no gallops, no rubs, normal peripheral pulses Heart - other findings: S1, S2 Respiratory: CTAB, no wheezes, no rales, no ronchi, normal chest expansion, no tachypnea Gastrointestinal: soft, non-tender, non-distended, normal bowel sounds, no palpable masses Extremities: no cyanosis, no clubbing, no edema Skin: normal turgor Neurological: cranial nerve grossly intact, no new deficit Musculoskeletal: normal tone, normal strength, no muscle wasting Psychiatric: normal affect, A&O x 3 Hosp A/P (1) Orthostatic hypotension Code(s): I95.1 - ORTHOSTATIC HYPOTENSION Status: Acute Plan: Mild improvement today, continue Midodrine/Florinef/Prednisone, serial monitoring (2) Syncope Code(s): R55 - SYNCOPE AND COLLAPSE Status: Acute (3) Atrial fibrillation Code(s): I48.91 - UNSPECIFIED ATRIAL FIBRILLATION Status: Chronic (4) Bipolar 1 disorder Code(s): F31.9 - BIPOLAR DISORDER, UNSPECIFIED Status: Chronic (5) CAD (coronary artery disease) Code(s): I25.10 - ATHSCL HEART DISEASE OF [place] CORONARY ARTERY W/O ANG PCTRS Status: Chronic (6) Hypothyroid Code(s): E03.9 - HYPOTHYROIDISM, UNSPECIFIED Status: Chronic (7) UTI (urinary tract infection) Status: Acute Plan: Continue Levaquin - Plan continue antibiotics, PT/OT, social services manager, DVT proph w/SCDs Stable currently Increase Midodrine/Florinef dosing Discussed with Dr. Forrester in [facility] [place] who specializes in persistent orthostatic hypotension Abd binder/Compression stockings OOB with PT Appreciate Neurology/Cardiology assistance Continue Levaquin 500mg po daily for UTI Consider transfer to programs specializing in orthostatic hypotension May benefit from trial of IVIG in context of potential autoimmune mediated process Lab: Paraneoplastic panel drawn 01/21/20 Trial Prednisone 40mg po daily
[2020-01-23] MEDS: Ondansetron PF 4 MG/2 ML Vial IVP PRN (13:20)
[2020-01-23] MEDS ORDERED: Ketorolac Tromethamine 30 MG/ML VIAL IVP PRN (14:19)
[2020-01-23] MEDS: Temazepam 15 MG CAP PO SCH (19:59)
[2020-01-23] MEDS: Atorvastatin Calcium 40 MG TAB PO SCH (19:59)
[2020-01-23] MEDS ORDERED: CAFF PO PRN (21:42)
[2020-01-23] MEDS ORDERED: BUTALBIT PO PRN (21:42)
[2020-01-23] MEDS ORDERED: CODEINE PO PRN (21:42)
[2020-01-23] MEDS ORDERED: ACETAMIN PO PRN (21:42)
[2020-01-24] MEDS ORDERED: Fioricet 325/50/40 mg Tablet PO SCH (00:45)
[2020-01-24] MEDS: Levothyroxine Sodium 100 MCG TAB PO SCH (05:08)
[2020-01-24] MEDS: Midodrine HCl 5 MG TAB PO SCH ×3 (08:45→17:12)
[2020-01-24] MEDS: predniSONE 20 MG TAB PO SCH (08:45)
[2020-01-24] MEDS: Amiodarone 200 MG TAB PO SCH (08:46)
[2020-01-24] MEDS: Dicyclomine 10 MG CAP PO SCH ×2 (08:46→20:13)
[2020-01-24] MEDS: Aspirin 81 mg Enteric Coated Tablet PO SCH (08:46)
[2020-01-24] MEDS: Docusate 100 MG CAP PO SCH ×2 (08:46→20:14)
[2020-01-24] MEDS: Fludrocortisone Acetate 0.1 MG TAB PO SCH (08:47)
[2020-01-24] MEDS ORDERED: Fioricet 325/50/40 mg Tablet PO PRN (11:02)
[2020-01-24] MEDS ORDERED: clonazePAM 1 MG TAB PO SCH (12:00)
--- NOTE | 2020-01-24 15:46 | PDOC.HOSPP ---
- Subjective Encounter Date: 01/24/20 Encounter Time: 15:45 Subjective: f/u for severe orthostatic hypotension on Midodrine/Florinef/Prednisone. c/o migraine BRADY yesterday improved today with Fioricet/Toradol. - Objective Vital Signs & Weight: Vital Signs (12 hours) Temp Pulse Resp BP BP BP Pulse Ox 01/24/20 11:45 98.2 F 67 16 124/81 93 L 01/24/20 08:30 98.3 F 61 17 87/54 L 87/54 L 94 L Weight Admit Weight 182 lb 1.629 oz Weight 188 lb 3.2 oz I&O: 01/23/20 01/24/20 01/25/20 06:59 06:59 06:59 Intake Total 1080 440 Output Total 1300 700 Balance -220 -260 Result Diagrams: 01/18/20 04:23 01/18/20 04:23 Additional Labs: Microbiology 01/17/20 00:17 Urine voided Urine Culture - Preliminary Gram Negative Binu Presumptive Kleb/Enterobacter 01/17/20 00:17 Urine voided Urine Culture - Preliminary Laboratory Tests 01/13/20 01/13/20 01/13/20 10:25 10:25 17:06 D-Dimer 1.02 H Magnesium Troponin I Less than 0.010 Free T4 TSH 3rd Generation Cortisol SARS-CoV-2 (PCR) Not Detected 01/13/20 01/13/20 01/15/20 19:50 19:50 04:19 D-Dimer Magnesium 1.7 Troponin I 0.013 Less than 0.010 Free T4 TSH 3rd Generation Cortisol SARS-CoV-2 (PCR) 01/19/20 01/19/20 03:55 18:18 D-Dimer Magnesium Troponin I Free T4 1.29 TSH 3rd Generation 1.5218 Cortisol 8.30 SARS-CoV-2 (PCR) EKG Reviewed by me: Yes (Tele - SR) Hospitalist ROS - Medication Medications: Active Medications Generic Name Dose Route Start Last Admin Trade Name Freq PRN Reason Stop Dose Admin Acetaminophen 650 mg 01/15/20 12:06 01/23/20 08:04 Acetaminophen 325 Mg Tab PO 650 mg Q6H PRN Administration Headache Amiodarone HCl 200 mg 01/14/20 09:00 01/24/20 08:46 Amiodarone 200 Mg Tab PO 200 mg DAILY MANUELA Administration Aspirin 81 mg 01/14/20 09:00 01/24/20 08:46 Aspirin 81 Mg Enteric Coated Tablet PO 81 mg DAILY MANUELA Administration Atorvastatin Calcium 40 mg 01/13/20 21:00 01/23/20 19:59 Atorvastatin Calcium 40 Mg Tab PO 40 mg HS MANUELA Administration Captopril 12.5 mg 01/13/20 19:33 01/23/20 19:59 Captopril 12.5 Mg Tab PO 12.5 mg HSPRN PRN Administration SBP >170 Dicyclomine HCl 10 mg 01/13/20 21:00 01/24/20 08:46 Dicyclomine 10 Mg Cap PO 10 mg BID MANUELA Administration Docusate Sodium 100 mg 01/22/20 09:00 01/24/20 08:46 Docusate 100 Mg Cap PO 100 mg BID MANUELA Administration Fludrocortisone Acetate 0.3 mg 01/21/20 14:13 01/24/20 08:47 Fludrocortisone Acetate 0.1 Mg Tab PO 0.3 mg DAILY MANUELA Administration Ketorolac Tromethamine 30 mg 01/23/20 14:19 01/23/20 14:25 Ketorolac Tromethamine 30 Mg/Ml Vial IVP 01/28/20 14:20 30 mg Q6H PRN Administration Pain Levofloxacin 500 mg 01/20/20 06:00 01/24/20 05:08 Levofloxacin 500 Mg Tab PO 500 mg 0600 MANUELA Administration Levothyroxine Sodium 100 mcg 01/14/20 06:00 01/24/20 05:08 Levothyroxine Sodium 100 Mcg Tab PO 100 mcg 0600 MANUELA Administration Midodrine 10 mg 01/21/20 17:00 01/24/20 12:18 Midodrine Hcl 5 Mg Tab PO 10 mg TID-WM MANUELA Administration Ondansetron HCl 4 mg 01/23/20 12:59 01/23/20 13:20 Ondansetron Pf 4 Mg/2 Ml Vial IVP 4 mg Q6H PRN Administration Nausea/Vomiting Pantoprazole Sodium 40 mg 01/14/20 09:00 01/24/20 08:45 Pantoprazole 40 Mg Tab PO 40 mg DAILY MANUELA Administration Prednisone 40 mg 01/23/20 08:00 01/24/20 08:45 Prednisone 20 Mg Tab PO 40 mg QAM-WM MANUELA Administration Sertraline HCl 200 mg 01/14/20 09:00 01/24/20 08:44 Sertraline Hcl 100 Mg Tab PO 200 mg DAILY MANUELA Administration - Exam General Appearance: NAD, awake alert Eye: PERRL, anicteric sclera ENT: normocephalic atraumatic, no oropharyngeal lesions Neck: supple, symmetric, no JVD, no thyromegaly, no lymphadenopathy Heart: RRR, no gallops, no rubs, normal peripheral pulses Heart - other findings: S1, S2 Respiratory: CTAB, no wheezes, no rales, no ronchi, normal chest expansion, no tachypnea Gastrointestinal: soft, non-tender, non-distended, normal bowel sounds, no palpable masses Extremities: no cyanosis, no clubbing, no edema Skin: normal turgor Neurological: cranial nerve grossly intact, no new deficit Musculoskeletal: normal tone, generalized weakness Psychiatric: normal affect, A&O x 3 Hosp A/P (1) Orthostatic hypotension Code(s): I95.1 - ORTHOSTATIC HYPOTENSION Status: Acute Plan: Continue Midodrine/Florinef/Prednisone, may consider referral to Dr. Ronak nuñez in [place], [place] once stable and able to ambulate. (2) Syncope Code(s): R55 - SYNCOPE AND COLLAPSE Status: Acute (3) Atrial fibrillation Code(s): I48.91 - UNSPECIFIED ATRIAL FIBRILLATION Status: Chronic (4) Bipolar 1 disorder Code(s): F31.9 - BIPOLAR DISORDER, UNSPECIFIED Status: Chronic (5) CAD (coronary artery disease) Code(s): I25.10 - ATHSCL HEART DISEASE OF [place] CORONARY ARTERY W/O ANG PCTRS Status: Chronic (6) Hypothyroid Code(s): E03.9 - HYPOTHYROIDISM, UNSPECIFIED Status: Chronic (7) UTI (urinary tract infection) Status: Acute Plan: Continue Levaquin 500mg po daily - Plan continue antibiotics, PT/OT, social welfare administrator, out of bed/ambulate, DVT proph w/SCDs Stable currently Increase Midodrine/Florinef dosing Discussed with Dr. Ronak Forrester in [place], [place] who specializes in persistent orthostatic hypotension Abd binder/Compression stockings OOB with PT Appreciate Neurology/Cardiology assistance Continue Levaquin 500mg po daily for UTI Consider transfer to programs specializing in orthostatic hypotension May benefit from trial of IVIG in context of potential autoimmune mediated process Lab: Paraneoplastic panel drawn 01/21/20 Trial Prednisone 40mg po daily
[2020-01-24] MEDS: Atorvastatin Calcium 40 MG TAB PO SCH (20:13)
[2020-01-24] MEDS: clonazePAM 1 MG TAB PO SCH (20:13)
[2020-01-24] MEDS ORDERED: Temazepam 15 MG CAP PO SCH (21:00)
[2020-01-25] MEDS: Levothyroxine Sodium 100 MCG TAB PO SCH (05:20)
[2020-01-25] MEDS: Dicyclomine 10 MG CAP PO SCH ×2 (08:25→20:11)
[2020-01-25] MEDS: Aspirin 81 mg Enteric Coated Tablet PO SCH (08:25)
[2020-01-25] MEDS: predniSONE 20 MG TAB PO SCH (08:25)
[2020-01-25] MEDS: Fludrocortisone Acetate 0.1 MG TAB PO SCH (08:25)
[2020-01-25] MEDS: clonazePAM 1 MG TAB PO SCH ×2 (08:25→20:11)
[2020-01-25] MEDS: Midodrine HCl 5 MG TAB PO SCH ×3 (08:26→17:54)
[2020-01-25] MEDS: Amiodarone 200 MG TAB PO SCH (08:26)
[2020-01-25] MEDS: Docusate 100 MG CAP PO SCH ×2 (08:27→20:11)
--- NOTE | 2020-01-25 17:16 | PDOC.HOSPP ---
- Subjective Subjective: Patient was seen examined at bedside. Patient reportedly able to stand up about 60 seconds. It appeared that patient has a severe orthostatic hypotension. - Objective Vital Signs & Weight: Vital Signs (12 hours) Temp Pulse Resp BP BP BP Pulse Ox 01/25/20 16:15 99.3 F 69 15 98/58 L 92 L 01/25/20 11:45 98.2 F 66 17 101/56 L 95 01/25/20 10:00 98/60 115/63 01/25/20 07:15 98.1 F 66 16 84/44 L 96 Weight Admit Weight 182 lb 1.629 oz Weight 187 lb 6.4 oz I&O: 01/24/20 01/25/20 01/26/20 06:59 06:59 06:59 Intake Total 440 1060 Output Total 700 950 Balance -260 110 Result Diagrams: 01/18/20 04:23 01/18/20 04:23 Radiology Reviewed by me: Yes EKG Reviewed by me: Yes Hospitalist ROS - Medication Medications: Active Medications Generic Name Dose Route Start Last Admin Trade Name Freq PRN Reason Stop Dose Admin Acetaminophen 650 mg 01/15/20 12:06 01/23/20 08:04 Acetaminophen 325 Mg Tab PO 650 mg Q6H PRN Administration Headache Amiodarone HCl 200 mg 01/14/20 09:00 01/25/20 08:26 Amiodarone 200 Mg Tab PO 200 mg DAILY MANUELA Administration Aspirin 81 mg 01/14/20 09:00 01/25/20 08:25 Aspirin 81 Mg Enteric Coated Tablet PO 81 mg DAILY MANUELA Administration Atorvastatin Calcium 40 mg 01/13/20 21:00 01/24/20 20:13 Atorvastatin Calcium 40 Mg Tab PO 40 mg HS MANUELA Administration Captopril 12.5 mg 01/13/20 19:33 01/23/20 19:59 Captopril 12.5 Mg Tab PO 12.5 mg HSPRN PRN Administration SBP >170 Clonazepam 1 mg 01/24/20 21:00 01/25/20 08:25 Clonazepam 1 Mg Tab PO 1 mg BID MANUELA Administration Dicyclomine HCl 10 mg 01/13/20 21:00 01/25/20 08:25 Dicyclomine 10 Mg Cap PO 10 mg BID MANUELA Administration Docusate Sodium 100 mg 01/22/20 09:00 01/25/20 08:27 Docusate 100 Mg Cap PO Not Given BID MANUELA Fludrocortisone Acetate 0.3 mg 01/21/20 14:13 01/25/20 08:25 Fludrocortisone Acetate 0.1 Mg Tab PO 0.3 mg DAILY MANUELA Administration Ketorolac Tromethamine 30 mg 01/23/20 14:19 01/23/20 14:25 Ketorolac Tromethamine 30 Mg/Ml Vial IVP 01/28/20 14:20 30 mg Q6H PRN Administration Pain Levofloxacin 500 mg 01/20/20 06:00 01/25/20 05:20 Levofloxacin 500 Mg Tab PO 500 mg 0600 MANUELA Administration Levothyroxine Sodium 100 mcg 01/14/20 06:00 01/25/20 05:20 Levothyroxine Sodium 100 Mcg Tab PO 100 mcg 0600 MANUELA Administration Midodrine 10 mg 01/21/20 17:00 01/25/20 12:06 Midodrine Hcl 5 Mg Tab PO 10 mg TID-WM MANUELA Administration Ondansetron HCl 4 mg 01/23/20 12:59 01/23/20 13:20 Ondansetron Pf 4 Mg/2 Ml Vial IVP 4 mg Q6H PRN Administration Nausea/Vomiting Pantoprazole Sodium 40 mg 01/14/20 09:00 01/25/20 08:25 Pantoprazole 40 Mg Tab PO 40 mg DAILY MANUELA Administration Prednisone 40 mg 01/23/20 08:00 01/25/20 08:25 Prednisone 20 Mg Tab PO 40 mg QAM-WM MANUELA Administration Sertraline HCl 200 mg 01/14/20 09:00 01/25/20 08:24 Sertraline Hcl 100 Mg Tab PO 200 mg DAILY MANUELA Administration - Exam General Appearance: NAD Eye: PERRL ENT: normocephalic atraumatic Neck: supple Heart: RRR Respiratory: CTAB Gastrointestinal: soft, non-tender Extremities: no cyanosis Skin: normal turgor Neurological: cranial nerve grossly intact Hosp A/P - Plan Severe orthostatic hypotension, symptomatic --Continue current management --Cont PT. Home when improved --My colleague, who discussed with Dr. Ronak Forrester in [place], [place] who specializes in persistent orthostatic hypotension. Will refer to him upon discharge --supportive cares Syncope - secondary to above --mgt as above UTI --cont levaquin AFib --rate controlled Hypothyroidism --cont levothyroxine CAD --cont ASA/Statin. Pt's BP too low for BB Hx of Bipolar disorder
[2020-01-25] MEDS: Atorvastatin Calcium 40 MG TAB PO SCH (20:11)
[2020-01-25] MEDS: Temazepam 15 MG CAP PO PRN (22:45)
[2020-01-26] MEDS: Levothyroxine Sodium 100 MCG TAB PO SCH (05:50)
[2020-01-26] MEDS: Midodrine HCl 5 MG TAB PO SCH ×3 (08:44→16:55)
[2020-01-26] MEDS: Docusate 100 MG CAP PO SCH ×2 (08:45→21:03)
[2020-01-26] MEDS: Amiodarone 200 MG TAB PO SCH (08:45)
[2020-01-26] MEDS: Aspirin 81 mg Enteric Coated Tablet PO SCH (08:45)
[2020-01-26] MEDS: predniSONE 20 MG TAB PO SCH (08:45)
[2020-01-26] MEDS: Fludrocortisone Acetate 0.1 MG TAB PO SCH (08:45)
[2020-01-26] MEDS: clonazePAM 1 MG TAB PO SCH ×2 (08:45→21:03)
[2020-01-26] MEDS: Dicyclomine 10 MG CAP PO SCH ×2 (08:45→21:03)
[2020-01-26] MEDS: Ondansetron PF 4 MG/2 ML Vial IVP PRN (09:10)
--- NOTE | 2020-01-26 14:09 | PDOC.HOSPP ---
- Subjective Subjective: Pt states she is doing better, she able to take a few steps. BP improved as well - Objective Vital Signs & Weight: Vital Signs (12 hours) Temp Pulse Resp BP BP BP BP 01/26/20 11:52 98.9 F 79 18 133/73 01/26/20 09:21 114/66 120/71 159/108 H 01/26/20 07:48 98.7 F 77 15 01/26/20 03:00 98.7 F 64 16 120/73 BP Pulse Ox 01/26/20 11:52 95 01/26/20 09:21 01/26/20 07:48 122/72 95 01/26/20 03:00 94 L Weight Admit Weight 182 lb 1.629 oz Weight 189 lb I&O: 01/25/20 01/26/20 01/27/20 06:59 06:59 06:59 Intake Total 1060 970 Output Total 950 1000 Balance 110 -30 Result Diagrams: 01/18/20 04:23 01/18/20 04:23 Radiology Reviewed by me: Yes EKG Reviewed by me: Yes Hospitalist ROS - Medication Medications: Active Medications Generic Name Dose Route Start Last Admin Trade Name Freq PRN Reason Stop Dose Admin Acetaminophen 650 mg 01/15/20 12:06 01/23/20 08:04 Acetaminophen 325 Mg Tab PO 650 mg Q6H PRN Administration Headache Amiodarone HCl 200 mg 01/14/20 09:00 01/26/20 08:45 Amiodarone 200 Mg Tab PO 200 mg DAILY MANUELA Administration Aspirin 81 mg 01/14/20 09:00 01/26/20 08:45 Aspirin 81 Mg Enteric Coated Tablet PO 81 mg DAILY MANUELA Administration Atorvastatin Calcium 40 mg 01/13/20 21:00 01/25/20 20:11 Atorvastatin Calcium 40 Mg Tab PO 40 mg HS MANUELA Administration Captopril 12.5 mg 01/13/20 19:33 01/23/20 19:59 Captopril 12.5 Mg Tab PO 12.5 mg HSPRN PRN Administration SBP >170 Clonazepam 1 mg 01/24/20 21:00 01/26/20 08:45 Clonazepam 1 Mg Tab PO 1 mg BID MANUELA Administration Dicyclomine HCl 10 mg 01/13/20 21:00 01/26/20 08:45 Dicyclomine 10 Mg Cap PO 10 mg BID MANUELA Administration Docusate Sodium 100 mg 01/22/20 09:00 01/26/20 08:45 Docusate 100 Mg Cap PO 100 mg BID MANUELA Administration Fludrocortisone Acetate 0.3 mg 01/21/20 14:13 01/26/20 08:45 Fludrocortisone Acetate 0.1 Mg Tab PO 0.3 mg DAILY MANUELA Administration Ketorolac Tromethamine 30 mg 01/23/20 14:19 01/23/20 14:25 Ketorolac Tromethamine 30 Mg/Ml Vial IVP 01/28/20 14:20 30 mg Q6H PRN Administration Pain Levofloxacin 500 mg 01/20/20 06:00 01/26/20 05:50 Levofloxacin 500 Mg Tab PO 500 mg 0600 MANUELA Administration Levothyroxine Sodium 100 mcg 01/14/20 06:00 01/26/20 05:50 Levothyroxine Sodium 100 Mcg Tab PO 100 mcg 0600 MANUELA Administration Midodrine 10 mg 01/21/20 17:00 01/26/20 11:55 Midodrine Hcl 5 Mg Tab PO 10 mg TID-WM MANUELA Administration Ondansetron HCl 4 mg 01/23/20 12:59 01/26/20 09:10 Ondansetron Pf 4 Mg/2 Ml Vial IVP 4 mg Q6H PRN Administration Nausea/Vomiting Pantoprazole Sodium 40 mg 01/14/20 09:00 01/26/20 08:45 Pantoprazole 40 Mg Tab PO 40 mg DAILY MANUELA Administration Prednisone 40 mg 01/23/20 08:00 01/26/20 08:45 Prednisone 20 Mg Tab PO 40 mg QAM-WM MANUELA Administration Sertraline HCl 200 mg 01/14/20 09:00 01/26/20 08:45 Sertraline Hcl 100 Mg Tab PO 200 mg DAILY MANUELA Administration Temazepam 30 mg 01/25/20 22:23 01/25/20 22:45 Temazepam 15 Mg Cap PO 30 mg HSPRN PRN Administration Insomnia - Exam General Appearance: NAD Eye: PERRL ENT: normocephalic atraumatic Neck: supple, JVD Heart: RRR Respiratory: CTAB Gastrointestinal: soft Extremities: no cyanosis, no clubbing, no edema Skin: normal turgor Neurological: cranial nerve grossly intact Musculoskeletal: normal tone, generalized weakness Psychiatric: normal affect, normal behavior Hosp A/P - Plan Severe orthostatic hypotension, symptomatic --Continue current management --Cont PT. --My colleague, who discussed with Dr. Ronak Forrester in [place], [place] who specializes in persistent orthostatic hypotension. Will refer to him upon discharge --supportive cares; hopefully home with HH tomorrow as she cont to improve Syncope - secondary to above --mgt as above UTI --cont levaquin AFib --rate controlled Hypothyroidism --cont levothyroxine CAD --cont ASA/Statin. Pt's BP too low for BB Hx of Bipolar disorder
[2020-01-26] MEDS: Atorvastatin Calcium 40 MG TAB PO SCH (21:03)
[2020-01-26] MEDS: Temazepam 15 MG CAP PO PRN (21:03)
[2020-01-27] MEDS: Levothyroxine Sodium 100 MCG TAB PO SCH (05:19)
[2020-01-27] MEDS: Docusate 100 MG CAP PO SCH (08:59)
[2020-01-27] MEDS: Dicyclomine 10 MG CAP PO SCH (08:59)
[2020-01-27] MEDS: clonazePAM 1 MG TAB PO SCH (08:59)
[2020-01-27] MEDS: Amiodarone 200 MG TAB PO SCH (09:00)
[2020-01-27] MEDS: predniSONE 20 MG TAB PO SCH (09:00)
[2020-01-27] MEDS: Aspirin 81 mg Enteric Coated Tablet PO SCH (09:01)
[2020-01-27] MEDS: Fludrocortisone Acetate 0.1 MG TAB PO SCH (10:18)
[2020-01-27] MEDS ORDERED: predniSONE 20 MG TAB PO SCH ×2 (14:14→14:30)
[2020-01-27] MEDS ORDERED: Amlodipine 5 MG TAB PO SCH ×2 (14:15→14:30)
[2020-01-27] MEDS ORDERED: Non-Formulary Item 1 EACH (Lisinopril [Lisinopril] 40 MG Tablet) PO SCH (14:15)
--- NOTE | 2020-01-27 14:19 | PDOC.HOSPP ---
- Subjective Subjective: Patient had been remaining hypotensive, multiple of her home medication was on hold due to her orthostatic hypotension. Now her blood pressure shot up, uncontrolled. She also have some related headache. Overall her symptom is much improved. - Objective Vital Signs & Weight: Vital Signs (12 hours) Temp Pulse Resp BP BP BP BP 01/27/20 11:05 98.8 F 123 H 19 183/117 H 01/27/20 09:00 190/100 H 01/27/20 07:32 98.7 F 91 14 184/115 H 01/27/20 05:21 83 179/101 H 01/27/20 04:25 190/100 H 01/27/20 04:00 98.6 F 82 18 188/100 H Pulse Ox 01/27/20 11:05 97 01/27/20 09:00 01/27/20 07:32 93 L 01/27/20 05:21 01/27/20 04:25 01/27/20 04:00 94 L Weight Admit Weight 182 lb 1.629 oz Weight 179 lb 14.4 oz I&O: 01/26/20 01/27/20 01/28/20 06:59 06:59 06:59 Intake Total 970 1410 Output Total 1000 800 Balance -30 610 Result Diagrams: 01/18/20 04:23 01/18/20 04:23 Radiology Reviewed by me: Yes EKG Reviewed by me: Yes Hospitalist ROS - Medication Medications: Active Medications Generic Name Dose Route Start Last Admin Trade Name Freq PRN Reason Stop Dose Admin Acetaminophen 650 mg 01/15/20 12:06 01/23/20 08:04 Acetaminophen 325 Mg Tab PO 650 mg Q6H PRN Administration Headache Acetaminophen/Butalbital/Caffeine 1 tab 01/24/20 11:02 01/27/20 10:17 Fioricet 325/50/40 Mg Tablet PO 01/29/20 11:03 1 tab Q4H PRN Administration Headache Amiodarone HCl 200 mg 01/14/20 09:00 01/27/20 09:00 Amiodarone 200 Mg Tab PO 200 mg DAILY MANUELA Administration Aspirin 81 mg 01/14/20 09:00 01/27/20 09:01 Aspirin 81 Mg Enteric Coated Tablet PO 81 mg DAILY MANUELA Administration Atorvastatin Calcium 40 mg 01/13/20 21:00 01/26/20 21:03 Atorvastatin Calcium 40 Mg Tab PO 40 mg HS MANUELA Administration Captopril 12.5 mg 01/13/20 19:33 01/27/20 09:00 Captopril 12.5 Mg Tab PO 12.5 mg HSPRN PRN Administration SBP >170 Clonazepam 1 mg 01/24/20 21:00 01/27/20 08:59 Clonazepam 1 Mg Tab PO 1 mg BID MANUELA Administration Dicyclomine HCl 10 mg 01/13/20 21:00 01/27/20 08:59 Dicyclomine 10 Mg Cap PO 10 mg BID MANUELA Administration Docusate Sodium 100 mg 01/22/20 09:00 01/27/20 08:59 Docusate 100 Mg Cap PO 100 mg BID MANUELA Administration Fludrocortisone Acetate 0.3 mg 01/21/20 14:13 01/27/20 10:18 Fludrocortisone Acetate 0.1 Mg Tab PO 0.3 mg DAILY MANUELA Administration Ketorolac Tromethamine 30 mg 01/23/20 14:19 01/23/20 14:25 Ketorolac Tromethamine 30 Mg/Ml Vial IVP 01/28/20 14:20 30 mg Q6H PRN Administration Pain Levofloxacin 500 mg 01/20/20 06:00 01/27/20 05:19 Levofloxacin 500 Mg Tab PO 500 mg 0600 MANUELA Administration Levothyroxine Sodium 100 mcg 01/14/20 06:00 01/27/20 05:19 Levothyroxine Sodium 100 Mcg Tab PO 100 mcg 0600 MANUELA Administration Ondansetron HCl 4 mg 01/23/20 12:59 01/26/20 09:10 Ondansetron Pf 4 Mg/2 Ml Vial IVP 4 mg Q6H PRN Administration Nausea/Vomiting Pantoprazole Sodium 40 mg 01/14/20 09:00 01/27/20 09:00 Pantoprazole 40 Mg Tab PO 40 mg DAILY MANUELA Administration Sertraline HCl 200 mg 01/14/20 09:00 01/27/20 09:00 Sertraline Hcl 100 Mg Tab PO 200 mg DAILY MANUELA Administration Temazepam 30 mg 01/25/20 22:23 01/26/20 21:03 Temazepam 15 Mg Cap PO 30 mg HSPRN PRN Administration Insomnia - Exam General Appearance: NAD Eye: PERRL ENT: normocephalic atraumatic Neck: supple Heart: RRR Respiratory: CTAB Gastrointestinal: soft Skin: normal turgor Neurological: cranial nerve grossly intact Musculoskeletal: normal tone Psychiatric: normal affect, normal behavior, A&O x 3 Hosp A/P - Plan Severe orthostatic hypotension, symptomatic --resolved. Pt on significant amount of antihypertensive meds at home. BP now elevated Will slowly re-institute her home medications. --cont PT. D/C Midodrin. Restart home meds. Syncope - secondary to above --mgt as above UTI --cont levaquin AFib --rate controlled Hypothyroidism --cont levothyroxine CAD --cont ASA/Statin. Pt's BP too low for BB Hx of Bipolar disorder
[2020-01-27] MEDS ORDERED: Lisinopril 20 MG TAB PO SCH (14:30)
[2020-01-27 15:19] VITALS: BP 179/105
[2020-01-27 15:20] VITALS: TEMP 98.6
--- NOTE | 2020-01-27 18:09 | DIS ---
DATE OF ADMISSION: 01/13/2020 DATE OF DISCHARGE: 01/27/2020 DISCHARGE DIAGNOSES: 1. Severe orthostatic hypotension. 2. Syncope. 3. Urinary tract infection. 4. Atrial fibrillation. 5. Hypothyroidism. 6. Coronary artery disease. 7. History of bipolar disorder. 8. Mild hyponatremia, resolved. CONSULTATIONS: 1. Cardiology, Dr. Ch. 2. Neurology, Dr. Peoples. LABORATORY DATA: WBC 11.5, hemoglobin 13.6, hematocrit 40.7, platelets 359. Chemistry; sodium 137, potassium 3.6, chloride is 104, carbon dioxide 25, BUN 12, creatinine is 1.07, glucose 130, TSH 1.5. Cortisol level of 8.5. UA is positive. COVID PCR was negative. Urine culture positive for Klebsiella and Citrobacter. IMAGING STUDIES: Brain CT, negative for acute intracranial abnormality. Chest x-ray, no acute cardiac process. Carotid doppler, no evidence of significant stenosis. Abdominal pelvic CT, no definitive acute abnormalities seen. 2D echo, EF of 55% to 60%. The pacer wire visualized in the right ventricle. Left ventricular size is normal. EEG, nonspecific cerebral dysfunction, negative for seizure activities. HISTORY OF PRESENT ILLNESS: The patient is a pleasant 59-year-old female, who has significant past medical history of atrial fibrillation, depression, anxiety, congestive heart failure, hypothyroidism, hypertension, bipolar disorder, who presented to the ED with complaint of recurrent syncope. The patient actually had a fall prior to admission. She was ultimately admitted to hospitalist service for further workup. She was monitored on tele. Her pacer was interrogated. Cardiology was consulted. No significant evidence of arrhythmia. The patient was found to have urinary tract infection. She was started on broad-spectrum antibiotic and subsequently adjust and complete the course of antibiotics based on her urine culture, was positive for Klebsiella and Citrobacter. Her symptoms have resolved. Her syncope is likely due to orthostatic hypotension, was secondary to medications. The patient apparently is on multiple antihypertensive medications including Norvasc 5 mg, Cardizem 360 mg extended release, lisinopril 40 mg daily, and also Toprol- XL 200 mg. Her symptom is likely due to a combination of all this medication and urinary tract infections. Stroke workup was unremarkable. Her EEG was negative for seizure activity. She was quite hypotensive, she was given fluid challenge as well as multiple other medications to have improve her blood pressure including midodrine, Florinef. All her blood pressure obviously held on admission. Her blood pressure gradually improved, and became hypotensive. We slowly reinstituted her home medication. We resumed her Toprol as a lower dose of 100 mg instead of 200 that she has been taken at home. We also held her Cardizem. We have resumed her lisinopril as well. Her blood pressure appears to be well controlled at this point. Her symptoms significantly improved. The patient had been ambulating well. At this time, she is stable to discharge home. She completed a course of antibiotic for her urinary tract infection while in the hospital. The patient was advised to keep a log of her blood pressure and follow up with her PCP to adjust accordingly. We would recommend to discontinue amlodipine as well as Cardizem. We also re- cut a dose of Toprol-XL in half and continue her lisinopril at current dose. DISPOSITION: The patient is stable to discharge home with family. ACTIVITY: As tolerated. DIET: Cardiac diet. FOLLOWUP CARE: The patient to follow with her PCP in 1 to 2 weeks and follow up with her central stores attendant for ongoing care. PHYSICAL EXAMINATION: VITAL SIGNS: Temperature 98.6, pulse is 85, O2 saturation 98% on room air. GENERAL APPEARANCE: The patient appears to be comfortable. She is not in acute distress. HEENT: Normocephalic and atraumatic. Mucous membranes are moist. NECK: Supple. No lymphadenopathy. No JVD. CARDIOVASCULAR: Regular rate and rhythm. S1 and S2 noted. No murmur. PULMONOLOGY: Clear to auscultation bilaterally. ABDOMEN: Soft, nontender, nondistended. Positive bowel sounds. MUSCULOSKELETAL: No joint pain or tenderness. No lower extremity edema. PSYCHIATRIC: The patient is alert and oriented x3 with normal affect. DISCHARGE MEDICATIONS: The following medication has been discontinued including; 1. Amlodipine 5 mg daily. 2. Cardizem CD 360 mg daily. We also recommended to reduce the dose of her Toprol-XL from 200 mg to 100 mg daily. We provided her a prescription for clonidine 0.1 mg p.r.n. with parameters for blood pressure. The following medications recommend to resume as follow: 1. Aspirin 81 mg p.o. daily. 2. Lipitor 40 mg p.o. at bedtime. 3. Bentyl 10 mg b.i.d. 4. Clonazepam 1 mg p.o. b.i.d. 5. Amiodarone 200 mg p.o. daily. 6. Fosamax 70 mg q.7 daily. 7. Lisinopril 40 mg p.o. daily. 8. Omeprazole 40 mg p.o. daily. 9. Levothyroxine 100 mcg q.a.m. 10. Temazepam 30 mg p.o. at bedtime. 11. Toprol-XL dose has been decreased to 100 mg p.o. daily. 12. Xarelto 20 mg p.o. daily. 13. Sertraline 200 mg p.o. daily. 14. Plavix 75 mg p.o. daily. 15. Prednisone Dosepak 10 mg tablet, dispense 20, one tablet p.o. as directed. 16. Fioricet one tablet p.r.n. q.4 for headache. 17. Clonidine 0.1 mg p.o. b.i.d. p.r.n. for elevated blood pressure. Thank you for allowing us to participate in this patient's care. Discharge time spent 45 minutes. Job ID: [id number] MTDD
[2020-01-28] MEDS ORDERED: predniSONE 20 MG TAB PO SCH (08:00)
[2020-01-28] MEDS ORDERED: Lisinopril 20 MG TAB PO SCH (09:00)
[2020-01-28] MEDS ORDERED: Amlodipine 5 MG TAB PO SCH (09:00)
== END 2020-01-27 17:42 | disposition home health service (06) | DRG 312 ==
LOC: ERS 09:51 → 2NO 15:05 → OBSVTOIN 15:05 → 2NO 01-16 19:29
PROVIDERS: ADMIT Internal Medicine; ATTEND Internal Medicine
PROC: 4B02XSZ Measurement of Cardiac Pacemaker, External Approach (ICD-10-PCS; principal; 2020-01-17)
DX: I95.2 Hypotension due to drugs (principal); N39.0 Urinary tract infection, site not specified; E87.1 Hypo-osmolality and hyponatremia; Z20.828 Contact with and (suspected) exposure to other viral communicable diseases; E03.9 Hypothyroidism, unspecified; I25.10 Atherosclerotic heart disease of native coronary artery without angina pectoris; F31.9 Bipolar disorder, unspecified; I50.9 Heart failure, unspecified; F41.9 Anxiety disorder, unspecified; I45.81 Long QT syndrome; G47.00 Insomnia, unspecified; S00.03XA Contusion of scalp, initial encounter; R31.9 Hematuria, unspecified; B96.1 Klebsiella pneumoniae [K. pneumoniae] as the cause of diseases classified elsewhere; B96.89 Other specified bacterial agents as the cause of diseases classified elsewhere; I11.0 Hypertensive heart disease with heart failure; T46.1X5A Adverse effect of calcium-channel blockers, initial encounter; T46.4X5A Adverse effect of angiotensin-converting-enzyme inhibitors, initial encounter; I48.0 Paroxysmal atrial fibrillation; T44.7X5A Adverse effect of beta-adrenoreceptor antagonists, initial encounter; W19.XXXA Unspecified fall, initial encounter; Z88.1 Allergy status to other antibiotic agents; Z95.0 Presence of cardiac pacemaker; Z88.0 Allergy status to penicillin; Z88.2 Allergy status to sulfonamides; Z88.8 Allergy status to other drugs, medicaments and biological substances; Z91.048 Other nonmedicinal substance allergy status; Z95.5 Presence of coronary angioplasty implant and graft; Z79.899 Other long term (current) drug therapy; Z90.49 Acquired absence of other specified parts of digestive tract; Z90.710 Acquired absence of both cervix and uterus; Z87.891 Personal history of nicotine dependence; E66.9 Obesity, unspecified; Z68.30 Body mass index [BMI] 30.0-30.9, adult
CPT/HCPCS: 36415; 70450; 71045; 71275; 74176; 80048; 80053; 81015; 82533; 83735; 83930; 83935; 84439; 84443; 84484; 85025; 85027; 85379; 87077; 87086; 87186; 87635; 93005; 93010; 93306; 93880; 94760; 95816; 96360; 96361; 96374; G0378; J1885; J2405; J2930; J3475; J7512; Q9967; U0003

== ENCOUNTER 2020-03-17 11:24 | Emergency (ER) | payer OTHER ==
--- NOTE | 2020-03-17 11:50 | RAD ---
EXAM: Two views chest PROVIDED CLINICAL HISTORY: Low blood pressure and lightheadedness. COMPARISON: 01/13/2020 FINDINGS: Dual lead left subclavian cardiac pacemaking device remains place. Cardiac silhouette and pulmonary v asculature are within normal limits. The lungs are clear. The osseous structures have a normal appearance. There is suggestion of a small hiatal hernia, this may be related to mild eventration of the hemidiaphragm medially. Hiatal hernia was not seen on CT abdomen on 01/16/2020. IMPRESSION: No acute cardiopulmonary process.
[2020-03-17 12:41] LABS: #Eosinphils 0.1 thou/uL (0.0-0.7); #Lymphocytes 3.2 thou/uL (1.20-3.40); #Monocytes 0.4 thou/uL (0.11-0.59); #Neutrophils 7.4 thou/uL (1.40-6.50); %Basophils 0.3 % (0.0-1.0); %Eosinophils 0.6 % (0.0-10.0); %Lymphocytes 29.1 % (21.0-51.0); %Neutrophils 66.1 % (42.0-75.0); Mean Corpuscular HGB CONC 32.7 g/dL (32.0-36.0); Mean Corpuscular Hemoglobin 29.6 pg (27.0-31.0); Mean Corpuscular Volume 90.4 fL (78.0-98.0); Platelet Count 364 thou/uL (130-400); RBC Distribution Width 13.3 % (11.5-14.5); Red Blood Cell (RBC) Count 4.38 mill/uL (4.20-5.40); White Blood Cell (WBC) Count 11.1 thou/uL (4.8-10.8)
[2020-03-17 13:02] LABS: ALT (SGPT) Less than 7 U/L (8-55); AST (SGOT) 7 U/L (5-34); Alkaline Phosphatase 115 U/L (40-110); Anion Gap 15 mmol/L (10-20); BUN (Urea Nitrogen) 15 mg/dL (9.8-20.1); Bilirubin, Total 0.6 mg/dL (0.2-1.2); Calc. Creatinine Clearance 0 mL/min (70-130); Calcium 9.2 mg/dL (7.8-10.44); Carbon Dioxide 22 mmol/L (22-29); Chloride 107 mmol/L (98-107); Estimated GFR-MDRD 68; Globulin 2.7 g/dL (2.4-3.5); Glucose 114 mg/dL (70-105); Potassium 4.1 mmol/L (3.5-5.1); Protein, Total 6.7 g/dL (6.0-8.3); Sodium 140 mmol/L (136-145)
== END 2020-03-17 13:25 | disposition home or self-care (01) ==
LOC: ERS 11:24
DX: I95.9 Hypotension, unspecified (principal); I48.91 Unspecified atrial fibrillation; I11.0 Hypertensive heart disease with heart failure; I50.9 Heart failure, unspecified; Z79.82 Long term (current) use of aspirin; Z79.899 Other long term (current) drug therapy
CPT/HCPCS: 36415; 71046; 80053; 84443; 84484; 85025; 93005

== ENCOUNTER 2020-08-08 14:17 | Inpatient (IN) | payer MEDICARE, MEDICAID ==
[2020-08-08 15:12] LABS: Hemoglobin 9.4 g/dL (12.0-16.0); Mean Corpuscular HGB CONC 29.2 g/dL (32.0-36.0); Mean Corpuscular Hemoglobin 20.4 pg (27.0-31.0); Mean Corpuscular Volume 69.8 fL (78.0-98.0); Mean Platelet Volume 8.8 fL (7.4-10.4); Platelet Count 607 thou/uL (130-400); RBC Distribution Width 18.8 % (11.5-14.5); Red Blood Cell (RBC) Count 4.59 mill/uL (4.20-5.40); White Blood Cell (WBC) Count 18.6 thou/uL (4.8-10.8)
[2020-08-08] MEDS ORDERED: Morphine 2 MG/ML VIAL ONE (15:27)
[2020-08-08] MEDS ORDERED: Ondansetron PF 4 MG/2 ML Vial ONE ×3 (15:27→20:00)
[2020-08-08 15:37] LABS: ALT (SGPT) 8 U/L (8-55); AST (SGOT) 18 U/L (5-34); Albumin 4.1 g/dL (3.5-5.0); Alkaline Phosphatase 148 U/L (40-110); Anion Gap 18 mmol/L (10-20); BUN (Urea Nitrogen) 7 mg/dL (9.8-20.1); Bilirubin, Total 0.6 mg/dL (0.2-1.2); Calc. Creatinine Clearance 0 mL/min (70-130); Calcium 9.6 mg/dL (7.8-10.44); Carbon Dioxide 23 mmol/L (22-29); Chloride 103 mmol/L (98-107); Glucose 138 mg/dL (70-105); Potassium 3.9 mmol/L (3.5-5.1); Protein, Total 8.1 g/dL (6.0-8.3); Sodium 140 mmol/L (136-145)
[2020-08-08 15:39] LABS: Anisocytosis SLIGHT = 6-15 cells (100X) (0-5/hpf); Band 3 % (5-11); Hypochromia SLIGHT = 6-15 cells (100X) (0-5/hpf); Lymphocytes 12 % (21-51); MDiff Complete? YES; Microcytosis MODERATE=15-30 cells (100X) (0-5/hpf); Monocytes 3 % (0-10); Neutrophil 74 % (42-75); Ovalocytes SLIGHT = 2-5 cells (100X) (0-1/hpf); Platelet Morphology Comment Appears Increased; Polychromasia MODERATE = 3-4 cells (100X) (0-2/hpf); Reactive Lymphocytes 7 % (0-10); Stomatocytes SLIGHT = 2-5 cells (100X) (0-1/hpf); Target Cells SLIGHT = 2-5 cells (100X) (0-1/hpf); Tear Drops SLIGHT = 2-5 cells (100X) (0-1/hpf)
[2020-08-08 16:56] LABS: Bilirubin Negative (Negative); Blood, Urine Negative (Negative); Clarity Clear (Clear); Glucose, Urine (Dipstick) Normal (Negative); Ketone, Urine Trace mg/dL (Negative); Leukocyte 250 Leu/uL (Negative); Nitrite Negative (Negative); Protein, Urine (Dipstick) 10 mg/dL (Neg-Trace); RBC/HPF 0-3 HPF (0-3); Urobilinogen Normal mg/dL (Less than 2)
[2020-08-08 16:57] LABS: Bacteria/HPF 1+ HPF (None Seen)
[2020-08-08] MEDS ORDERED: Ketorolac Tromethamine 30 MG/ML VIAL ONE (18:25)
[2020-08-08] MEDS ORDERED: Acetaminophen 650 MG Suppository PR PRN (20:12)
[2020-08-08 20:23] LABS: SARS-CoV-2 NAA Rapid Test Not Detected (NotDetected)
[2020-08-08] MEDS: Sodium Chloride 0.9% 1,000 ML IV SCH (21:13)
[2020-08-08] MEDS: Ondansetron PF 4 MG/2 ML Vial IVP PRN (21:16)
[2020-08-08] MEDS ORDERED: cloNIDine 0.1 MG TAB PO SCH (22:49)
[2020-08-08] MEDS ORDERED: Amiodarone 200 MG TAB PO SCH (23:15)
[2020-08-08] MEDS ORDERED: Atorvastatin Calcium 40 MG TAB PO SCH (23:15)
[2020-08-08] MEDS ORDERED: cloNIDine 0.2 MG TAB PO SCH (23:15)
[2020-08-09] MEDS ORDERED: Labetalol HCl 100 MG/20 ML VIAL SLOW IVP PRN (00:56)
[2020-08-09] MEDS ORDERED: hydrALAZINE 20 MG/ML VIAL SLOW IVP PRN (00:56)
[2020-08-09] MEDS: Sodium Chloride 0.9% 1,000 ML IV SCH ×2 (05:28→15:25)
[2020-08-09] MEDS: Pantoprazole 40 MG VIAL IVP SCH (05:29)
[2020-08-09] MEDS: Levothyroxine Sodium 100 MCG TAB PO SCH (05:29)
[2020-08-09] MEDS: Ondansetron PF 4 MG/2 ML Vial IVP PRN ×2 (05:49→23:57)
[2020-08-09 06:23] LABS: #Lymphocytes 2.9 thou/uL (1.20-3.40); #Monocytes 0.8 thou/uL (0.11-0.59); #Neutrophils 11.9 thou/uL (1.40-6.50); %Eosinophils 0.2 % (0.0-10.0); %Lymphocytes 18.5 % (21.0-51.0); %Monocytes 4.9 % (0.0-10.0); %Neutrophils 76.5 % (42.0-75.0); Hemoglobin 8.8 g/dL (12.0-16.0); Mean Corpuscular HGB CONC 28.6 g/dL (32.0-36.0); Mean Corpuscular Hemoglobin 20.1 pg (27.0-31.0); Mean Corpuscular Volume 70.1 fL (78.0-98.0); Mean Platelet Volume 8.5 fL (7.4-10.4); Platelet Count 488 thou/uL (130-400); RBC Distribution Width 18.8 % (11.5-14.5); Red Blood Cell (RBC) Count 4.36 mill/uL (4.20-5.40); White Blood Cell (WBC) Count 15.6 thou/uL (4.8-10.8)
[2020-08-09 06:43] LABS: Anion Gap 15 mmol/L (10-20); BUN (Urea Nitrogen) 4 mg/dL (9.8-20.1); Calc. Creatinine Clearance 122 mL/min (70-130); Calcium 9.1 mg/dL (7.8-10.44); Carbon Dioxide 23 mmol/L (22-29); Chloride 104 mmol/L (98-107); Glucose 99 mg/dL (70-105); Potassium 3.5 mmol/L (3.5-5.1); Sodium 138 mmol/L (136-145)
[2020-08-09] MEDS: clonazePAM 1 MG TAB PO SCH ×2 (08:02→20:07)
[2020-08-09] MEDS: cloNIDine 0.2 MG TAB PO SCH ×3 (10:20→20:07)
[2020-08-09] MEDS: Aspirin 81 mg Enteric Coated Tablet PO SCH (10:20)
[2020-08-09] MEDS: Clopidogrel Bisulfate 75 MG TAB PO SCH (10:21)
[2020-08-09] MEDS: Ondansetron ODT 4 MG TAB PO PRN ×2 (11:38→19:18)
[2020-08-09] MEDS: Phenazopyridine HCl 100 MG TAB PO SCH ×2 (13:00→18:06)
[2020-08-09] MEDS: HYDROcodone/Acetaminophen 5/325 mg Tablet PO PRN ×2 (14:12→20:07)
[2020-08-09] MEDS: Amiodarone 200 MG TAB PO SCH (20:07)
[2020-08-09] MEDS: Atorvastatin Calcium 40 MG TAB PO SCH (20:07)
[2020-08-10] MEDS: HYDROcodone/Acetaminophen 5/325 mg Tablet PO PRN ×4 (01:57→21:36)
[2020-08-10] MEDS: Sodium Chloride 0.9% 1,000 ML IV SCH (01:57)
[2020-08-10] MEDS: Pantoprazole 40 MG VIAL IVP SCH (04:35)
[2020-08-10] MEDS: Levothyroxine Sodium 100 MCG TAB PO SCH (05:19)
[2020-08-10] MEDS: Acetaminophen 325 MG TAB PO PRN ×3 (05:20→20:35)
[2020-08-10 05:59] LABS: Iron 12 ug/dL (50-170); Iron Binding Capacity, Total 343 mcg/dL (265-497)
[2020-08-10 06:23] LABS: Ferritin 2.78 ng/mL (10-291)
[2020-08-10] MEDS: clonazePAM 1 MG TAB PO SCH ×2 (08:56→20:36)
[2020-08-10] MEDS: Ondansetron ODT 4 MG TAB PO PRN ×2 (08:56→15:55)
[2020-08-10] MEDS: Phenazopyridine HCl 100 MG TAB PO SCH ×3 (08:56→17:10)
[2020-08-10] MEDS: Clopidogrel Bisulfate 75 MG TAB PO SCH (08:56)
[2020-08-10] MEDS: cloNIDine 0.2 MG TAB PO SCH ×3 (08:56→20:36)
[2020-08-10] MEDS: Aspirin 81 mg Enteric Coated Tablet PO SCH (08:56)
[2020-08-10 10:49] LABS: Anion Gap 11 mmol/L (10-20); BUN (Urea Nitrogen) 8 mg/dL (9.8-20.1); Calc. Creatinine Clearance 86 mL/min (70-130); Calcium 7.9 mg/dL (7.8-10.44); Carbon Dioxide 20 mmol/L (22-29); Chloride 111 mmol/L (98-107); Glucose 98 mg/dL (70-105); Potassium 3.4 mmol/L (3.5-5.1); Sodium 139 mmol/L (136-145)
[2020-08-10 11:24] LABS: #Eosinphils 0.1 thou/uL (0.0-0.7); #Lymphocytes 2.7 thou/uL (1.20-3.40); #Monocytes 0.4 thou/uL (0.11-0.59); #Neutrophils 4.5 thou/uL (1.40-6.50); %Basophils 0.2 % (0.0-1.0); %Eosinophils 1.3 % (0.0-10.0); %Lymphocytes 35.2 % (21.0-51.0); %Monocytes 5.2 % (0.0-10.0); %Neutrophils 58.1 % (42.0-75.0); Hemoglobin 7.4 g/dL (12.0-16.0); Hypochromia SLIGHT = 6-15 cells (100X) (0-5/hpf); MDiff Complete? YES; Mean Corpuscular HGB CONC 28.7 g/dL (32.0-36.0); Mean Corpuscular Hemoglobin 20.1 pg (27.0-31.0); Mean Corpuscular Volume 70.2 fL (78.0-98.0); Mean Platelet Volume 8.6 fL (7.4-10.4); Microcytosis MODERATE=15-30 cells (100X) (0-5/hpf); Platelet Count 408 thou/uL (130-400); Platelet Morphology Comment Appears Increased; Polychromasia MODERATE = 3-4 cells (100X) (0-2/hpf); RBC Distribution Width 18.6 % (11.5-14.5); Red Blood Cell (RBC) Count 3.69 mill/uL (4.20-5.40); White Blood Cell (WBC) Count 7.7 thou/uL (4.8-10.8)
[2020-08-10 15:01] VITALS: BMI 26.9
[2020-08-10] MEDS: Ferrous Sulfate 325 MG TAB PO SCH (15:55)
[2020-08-10] MEDS: Ondansetron PF 4 MG/2 ML Vial IVP PRN (20:36)
[2020-08-10] MEDS: Atorvastatin Calcium 40 MG TAB PO SCH (20:36)
[2020-08-10] MEDS: Amiodarone 200 MG TAB PO SCH (20:36)
[2020-08-11] MEDS: Ondansetron PF 4 MG/2 ML Vial IVP PRN (04:05)
[2020-08-11] MEDS: Pantoprazole 40 MG VIAL IVP SCH (04:05)
[2020-08-11] MEDS: HYDROcodone/Acetaminophen 5/325 mg Tablet PO PRN ×4 (04:05→22:06)
[2020-08-11] MEDS: Levothyroxine Sodium 100 MCG TAB PO SCH (06:16)
[2020-08-11] MEDS ORDERED: Potassium Chloride 20 MEQ TAB PO SCH (07:30)
[2020-08-11] MEDS: Acetaminophen 325 MG TAB PO PRN (08:54)
[2020-08-11] MEDS: Clopidogrel Bisulfate 75 MG TAB PO SCH (08:54)
[2020-08-11] MEDS: cloNIDine 0.2 MG TAB PO SCH ×3 (08:54→20:43)
[2020-08-11] MEDS: Aspirin 81 mg Enteric Coated Tablet PO SCH (08:55)
[2020-08-11] MEDS: Phenazopyridine HCl 100 MG TAB PO SCH ×3 (08:55→17:56)
[2020-08-11] MEDS: Ferrous Sulfate 325 MG TAB PO SCH ×2 (08:55→16:10)
[2020-08-11] MEDS: clonazePAM 1 MG TAB PO SCH ×2 (08:55→20:43)
[2020-08-11] MEDS: Saccharomyces boulardii 250 MG CAP PO SCH (09:53)
[2020-08-11] MEDS: Ondansetron ODT 4 MG TAB PO PRN ×3 (09:53→22:06)
[2020-08-11] MEDS: Amiodarone 200 MG TAB PO SCH (20:43)
[2020-08-11] MEDS: Atorvastatin Calcium 40 MG TAB PO SCH (20:44)
[2020-08-12] MEDS: Pantoprazole 40 MG VIAL IVP SCH (03:40)
[2020-08-12] MEDS: HYDROcodone/Acetaminophen 5/325 mg Tablet PO PRN ×2 (04:02→10:36)
[2020-08-12] MEDS: Ondansetron ODT 4 MG TAB PO PRN ×2 (04:02→10:36)
[2020-08-12] MEDS: Levothyroxine Sodium 100 MCG TAB PO SCH (05:59)
[2020-08-12] MEDS: Phenazopyridine HCl 100 MG TAB PO SCH ×2 (08:25→13:42)
[2020-08-12] MEDS: Aspirin 81 mg Enteric Coated Tablet PO SCH (08:26)
[2020-08-12] MEDS: Ferrous Sulfate 325 MG TAB PO SCH (08:26)
[2020-08-12] MEDS: Saccharomyces boulardii 250 MG CAP PO SCH (08:26)
[2020-08-12] MEDS: cloNIDine 0.2 MG TAB PO SCH (08:28)
[2020-08-12] MEDS: Clopidogrel Bisulfate 75 MG TAB PO SCH (08:28)
[2020-08-12] MEDS: clonazePAM 1 MG TAB PO SCH (08:28)
[2020-08-12 08:58] VITALS: TEMP 97.9
[2020-08-12 12:48] VITALS: BP 113/57
== END 2020-08-12 14:15 | disposition home or self-care (01) | DRG 872 ==
LOC: ERS 14:17 → ONC 18:29 → OBSVTOIN 08-10 09:57
PROVIDERS: ADMIT Family Medicine; ATTEND Internal Medicine
DX: A41.9 Sepsis, unspecified organism (principal); N12 Tubulo-interstitial nephritis, not specified as acute or chronic; E03.9 Hypothyroidism, unspecified; E78.5 Hyperlipidemia, unspecified; I11.0 Hypertensive heart disease with heart failure; I48.91 Unspecified atrial fibrillation; I50.9 Heart failure, unspecified; I25.10 Atherosclerotic heart disease of native coronary artery without angina pectoris; D50.9 Iron deficiency anemia, unspecified; T36.8X5A Adverse effect of other systemic antibiotics, initial encounter; Y92.239 Unspecified place in hospital as the place of occurrence of the external cause; I95.9 Hypotension, unspecified; Z88.1 Allergy status to other antibiotic agents; Z88.0 Allergy status to penicillin; Z95.5 Presence of coronary angioplasty implant and graft; Z90.49 Acquired absence of other specified parts of digestive tract; Z95.0 Presence of cardiac pacemaker; Z90.710 Acquired absence of both cervix and uterus; Z88.2 Allergy status to sulfonamides; Z91.048 Other nonmedicinal substance allergy status; Z79.82 Long term (current) use of aspirin
CPT/HCPCS: 0240U; 36415; 71045; 74177; 80048; 80053; 81003; 81015; 82607; 82728; 82746; 83540; 83550; 83605; 84443; 84484; 85025; 87040; 87086; 93005; 96365; 96366; 96375; 96376; C9113; G0378; J0360; J1885; J1956; J2270; J2405; Q0162; Q9967

== ENCOUNTER 2020-08-21 04:08 | Emergency (ER) | payer MEDICARE, MEDICAID ==
[2020-08-21] MEDS ORDERED: Morphine 4 MG/ML VIAL ONE (04:22)
[2020-08-21] MEDS ORDERED: Ondansetron PF 4 MG/2 ML Vial ONE (04:22)
[2020-08-21] MEDS ORDERED: Promethazine HCl 25 MG/ML VIAL ONE (04:25)
[2020-08-21 05:00] LABS: Hemoglobin 8.8 g/dL (12.0-16.0); Mean Corpuscular HGB CONC 28.3 g/dL (32.0-36.0); Mean Corpuscular Hemoglobin 19.6 pg (27.0-31.0); Mean Corpuscular Volume 69.5 fL (78.0-98.0); RBC Distribution Width 19.7 % (11.5-14.5); Red Blood Cell (RBC) Count 4.47 mill/uL (4.20-5.40)
[2020-08-21 05:01] LABS: ALT (SGPT) Less than 7 U/L (8-55); AST (SGOT) 9 U/L (5-34); Albumin 4.2 g/dL (3.5-5.0); Alkaline Phosphatase 117 U/L (40-110); Anion Gap 16 mmol/L (10-20); BUN (Urea Nitrogen) 11 mg/dL (9.8-20.1); Bilirubin, Total 0.4 mg/dL (0.2-1.2); Calc. Creatinine Clearance 0 mL/min (70-130); Calcium 9.6 mg/dL (7.8-10.44); Carbon Dioxide 23 mmol/L (22-29); Chloride 104 mmol/L (98-107); Globulin 3.5 g/dL (2.4-3.5); Glucose 128 mg/dL (70-105); Lipase 31 U/L (8-78); Potassium 3.6 mmol/L (3.5-5.1); Protein, Total 7.7 g/dL (6.0-8.3); Sodium 139 mmol/L (136-145)
[2020-08-21 05:18] LABS: Bacteria/HPF None Seen HPF (None Seen); Bilirubin Negative (Negative); Blood, Urine Negative (Negative); Clarity Turbid (Clear); Glucose, Urine (Dipstick) Normal (Negative); Ketone, Urine Negative (Negative); Leukocyte 25 Leu/uL (Negative); Nitrite Negative (Negative); Protein, Urine (Dipstick) 20 mg/dL (Neg-Trace); Specific Gravity, Urine 1.021 (1.002-1.036); Squamous Epithelial None Seen HPF (0-3); Urobilinogen Normal mg/dL (Less than 2)
[2020-08-21 05:22] LABS: Band 6 % (5-11); Lymphocytes 12 % (21-51); MDiff Complete? YES; Mean Platelet Volume 8.7 fL (7.4-10.4); Monocytes 5 % (0-10); Neutrophil 76 % (42-75); Platelet Count 645 thou/uL (130-400); White Blood Cell (WBC) Count 17.8 thou/uL (4.8-10.8)
[2020-08-21] MEDS ORDERED: Iopamidol-370 76% 500 ML 1 ML ONE (11:45)
== END 2020-08-21 13:09 | disposition home or self-care (01) ==
LOC: ERS 04:08
DX: R11.2 Nausea with vomiting, unspecified (principal); R10.31 Right lower quadrant pain; I11.0 Hypertensive heart disease with heart failure; I50.9 Heart failure, unspecified; E03.9 Hypothyroidism, unspecified; E78.5 Hyperlipidemia, unspecified; Z79.899 Other long term (current) drug therapy
CPT/HCPCS: 36415; 51701; 74177; 80053; 81003; 81015; 83690; 85025; 93005; 96365; 96375; J2270; J2405; J2550; Q9967

== ENCOUNTER 2020-08-22 21:03 | Inpatient (IN) | payer MEDICARE, MEDICAID ==
[2020-08-22] MEDS ORDERED: Morphine 4 MG/ML VIAL ONE (21:26)
[2020-08-22] MEDS ORDERED: Promethazine HCl 25 MG/ML VIAL ONE (21:26)
[2020-08-22 21:46] LABS: #Basophils 0.1 thou/uL (0.0-0.2); #Eosinphils 0.1 thou/uL (0.0-0.7); #Lymphocytes 3.1 thou/uL (1.20-3.40); #Neutrophils 11.8 thou/uL (1.40-6.50); %Basophils 0.4 % (0.0-1.0); %Eosinophils 0.7 % (0.0-10.0); %Lymphocytes 19.1 % (21.0-51.0); %Neutrophils 73.7 % (42.0-75.0); Hemoglobin 8.4 g/dL (12.0-16.0); Mean Corpuscular HGB CONC 29.3 g/dL (32.0-36.0); Mean Corpuscular Hemoglobin 20.4 pg (27.0-31.0); Mean Corpuscular Volume 69.8 fL (78.0-98.0); Mean Platelet Volume 8.5 fL (7.4-10.4); Platelet Count 516 thou/uL (130-400); RBC Distribution Width 19.2 % (11.5-14.5); Red Blood Cell (RBC) Count 4.11 mill/uL (4.20-5.40); White Blood Cell (WBC) Count 16.1 thou/uL (4.8-10.8)
[2020-08-22 22:03] LABS: ALT (SGPT) 7 U/L (8-55); AST (SGOT) 10 U/L (5-34); Alkaline Phosphatase 105 U/L (40-110); Anion Gap 11 mmol/L (10-20); BUN (Urea Nitrogen) 10 mg/dL (9.8-20.1); Bilirubin, Total 0.4 mg/dL (0.2-1.2); Calc. Creatinine Clearance 0 mL/min (70-130); Calcium 9.1 mg/dL (7.8-10.44); Carbon Dioxide 27 mmol/L (22-29); Chloride 105 mmol/L (98-107); Globulin 3.2 g/dL (2.4-3.5); Glucose 106 mg/dL (70-105); Lipase 28 U/L (8-78); Potassium 3.1 mmol/L (3.5-5.1); Protein, Total 7.2 g/dL (6.0-8.3); Sodium 140 mmol/L (136-145)
[2020-08-22 22:34] LABS: Bilirubin Negative (Negative); Blood, Urine Negative (Negative); Clarity Clear (Clear); Glucose, Urine (Dipstick) Normal (Negative); Ketone, Urine Negative (Negative); Leukocyte Negative Leu/uL (Negative); Nitrite Negative (Negative); Protein, Urine (Dipstick) Negative (Neg-Trace); Specific Gravity, Urine 1.017 (1.002-1.036); Urobilinogen Normal mg/dL (Less than 2)
[2020-08-22] MEDS ORDERED: Nitroglycerin 2% Ointment 1 INCH/1 GM Packet ONE (22:36)
[2020-08-23 01:18] LABS: Troponin I Less than 0.010 ng/mL (< 0.028)
[2020-08-23] MEDS ORDERED: Acetaminophen 325 MG TAB PO PRN (01:42)
[2020-08-23] MEDS ORDERED: Ondansetron PF 4 MG/2 ML Vial IVP PRN (01:53)
[2020-08-23] MEDS ORDERED: Sodium Chloride 0.9% 500 ML IV SCH ×3 (02:00→20:00)
[2020-08-23] MEDS ORDERED: Potassium Chloride 20 MEQ TAB PO SCH (02:15)
[2020-08-23] MEDS ORDERED: Potassium Chloride 20 MEQ TAB ONE ×2 (02:18)
[2020-08-23 02:32] LABS: SARS-CoV-2 NAA Rapid Test Not Detected (NotDetected)
[2020-08-23 03:10] VITALS: BMI 28.3
[2020-08-23] MEDS ORDERED: Morphine 4 MG/ML VIAL ONE (03:45)
[2020-08-23] MEDS: Morphine 4 MG/ML VIAL SLOW IVP PRN ×2 (03:54→14:30)
[2020-08-23 04:40] LABS: #Eosinphils 0.1 thou/uL (0.0-0.7); #Lymphocytes 4.3 thou/uL (1.20-3.40); #Monocytes 0.8 thou/uL (0.11-0.59); #Neutrophils 8.7 thou/uL (1.40-6.50); %Basophils 0.2 % (0.0-1.0); %Eosinophils 0.9 % (0.0-10.0); %Lymphocytes 30.7 % (21.0-51.0); %Neutrophils 62.2 % (42.0-75.0); Hemoglobin 8.3 g/dL (12.0-16.0); Mean Corpuscular HGB CONC 29.3 g/dL (32.0-36.0); Mean Corpuscular Hemoglobin 20.4 pg (27.0-31.0); Mean Corpuscular Volume 69.5 fL (78.0-98.0); Mean Platelet Volume 8.8 fL (7.4-10.4); Platelet Count 488 thou/uL (130-400); RBC Distribution Width 19.1 % (11.5-14.5); Red Blood Cell (RBC) Count 4.09 mill/uL (4.20-5.40); White Blood Cell (WBC) Count 13.9 thou/uL (4.8-10.8)
[2020-08-23 04:50] LABS: Anion Gap 12 mmol/L (10-20); BUN (Urea Nitrogen) 7 mg/dL (9.8-20.1); Calc. Creatinine Clearance 97 mL/min (70-130); Calcium 9.4 mg/dL (7.8-10.44); Carbon Dioxide 27 mmol/L (22-29); Chloride 104 mmol/L (98-107); Glucose 112 mg/dL (70-105); Potassium 3.2 mmol/L (3.5-5.1); Sodium 140 mmol/L (136-145)
[2020-08-23 04:55] LABS: Troponin I Less than 0.010 ng/mL (< 0.028)
[2020-08-23] MEDS ORDERED: Labetalol HCl 100 MG/20 ML VIAL SLOW IVP PRN (05:36)
[2020-08-23] MEDS: Ketorolac Tromethamine 30 MG/ML VIAL IVP SCH ×4 (05:49→23:33)
[2020-08-23 07:31] LABS: Troponin I 0.013 ng/mL (< 0.028)
[2020-08-23] MEDS ORDERED: Potassium Bicarbonate/Cit Ac 25 MEQ TAB PO SCH (08:00)
[2020-08-23] MEDS: Docusate 100 MG CAP PO SCH ×2 (09:23→21:15)
[2020-08-23] MEDS ORDERED: Alendronate Sodium 70 mg Tablet PO SCH (11:00)
[2020-08-23] MEDS: cloNIDine 0.1 MG TAB PO SCH ×2 (14:45→21:05)
[2020-08-23] MEDS: Sodium Chloride 0.9% 1,000 ML IV SCH (16:06)
[2020-08-23] MEDS: Amiodarone 200 MG TAB PO SCH ×2 (21:14→22:04)
[2020-08-23] MEDS: Temazepam 15 MG CAP PO SCH (21:14)
[2020-08-23] MEDS: Atorvastatin Calcium 40 MG TAB PO SCH (21:14)
[2020-08-23] MEDS: clonazePAM 1 MG TAB PO SCH (21:15)
[2020-08-23] MEDS ORDERED: Morphine 4 MG/ML VIAL SLOW IVP SCH (22:15)
[2020-08-24] MEDS: Sodium Chloride 0.9% 1,000 ML IV SCH (04:17)
[2020-08-24 05:07] LABS: Troponin I Less than 0.010 ng/mL (< 0.028)
[2020-08-24] MEDS: Ketorolac Tromethamine 30 MG/ML VIAL IVP SCH ×4 (05:30→23:40)
[2020-08-24] MEDS: Levothyroxine Sodium 100 MCG TAB PO SCH (05:30)
[2020-08-24] MEDS: Morphine 4 MG/ML VIAL SLOW IVP PRN ×3 (05:41→22:08)
[2020-08-24] MEDS: Dicyclomine 10 MG CAP PO SCH (08:28)
[2020-08-24] MEDS: clonazePAM 1 MG TAB PO SCH ×2 (08:28→20:26)
[2020-08-24] MEDS: Clopidogrel Bisulfate 75 MG TAB PO SCH (08:28)
[2020-08-24] MEDS: Aspirin 81 mg Enteric Coated Tablet PO SCH (08:28)
[2020-08-24] MEDS: Docusate 100 MG CAP PO SCH ×2 (08:29→20:27)
[2020-08-24] MEDS: Pantoprazole 40 MG VIAL IVP SCH (09:20)
[2020-08-24] MEDS ORDERED: Fentanyl 100 MCG/2 ML VIAL ONE (10:28)
[2020-08-24] MEDS ORDERED: PROPOFOL 200 MG/20 ML VIAL ONE (10:32)
[2020-08-24] MEDS: cloNIDine 0.1 MG TAB PO SCH ×2 (14:08→20:35)
[2020-08-24] MEDS: Metoclopramide HCl 10 MG/2 ML VIAL IVP PRN ×2 (14:08→21:24)
[2020-08-24] MEDS ORDERED: Sodium Chloride 0.9% 1,000 ML IV SCH (16:00)
[2020-08-24] MEDS: Atorvastatin Calcium 40 MG TAB PO SCH (20:26)
[2020-08-24] MEDS: Polyethylene Glycol 3350 17 GM Packet PO SCH (20:27)
[2020-08-24] MEDS: Temazepam 15 MG CAP PO SCH (20:27)
[2020-08-25 05:26] LABS: Anion Gap 10 mmol/L (10-20); BUN (Urea Nitrogen) 10 mg/dL (9.8-20.1); Calc. Creatinine Clearance 141 mL/min (70-130); Calcium 7.9 mg/dL (7.8-10.44); Carbon Dioxide 22 mmol/L (22-29); Chloride 112 mmol/L (98-107); Glucose 73 mg/dL (70-105); Potassium 3.9 mmol/L (3.5-5.1); Sodium 140 mmol/L (136-145)
[2020-08-25] MEDS: Levothyroxine Sodium 100 MCG TAB PO SCH (06:10)
[2020-08-25] MEDS: Ketorolac Tromethamine 30 MG/ML VIAL IVP SCH ×3 (06:11→17:54)
[2020-08-25] MEDS: Morphine 4 MG/ML VIAL SLOW IVP PRN ×2 (06:14→15:48)
[2020-08-25 06:35] LABS: #Basophils 0.1 thou/uL (0.0-0.2); #Eosinphils 0.2 thou/uL (0.0-0.7); #Lymphocytes 3.2 thou/uL (1.20-3.40); #Monocytes 0.4 thou/uL (0.11-0.59); #Neutrophils 4.3 thou/uL (1.40-6.50); %Basophils 0.7 % (0.0-1.0); %Eosinophils 2.7 % (0.0-10.0); %Lymphocytes 38.8 % (21.0-51.0); %Monocytes 5.2 % (0.0-10.0); %Neutrophils 52.7 % (42.0-75.0); Hemoglobin 6.3 g/dL (12.0-16.0); Mean Corpuscular Hemoglobin 20.3 pg (27.0-31.0); Mean Platelet Volume 9.5 fL (7.4-10.4); Platelet Count 350 thou/uL (130-400); RBC Distribution Width 19.2 % (11.5-14.5); Red Blood Cell (RBC) Count 3.09 mill/uL (4.20-5.40); White Blood Cell (WBC) Count 8.2 thou/uL (4.8-10.8)
[2020-08-25] MEDS: Pantoprazole 40 MG VIAL IVP SCH (08:15)
[2020-08-25] MEDS: Aspirin 81 mg Enteric Coated Tablet PO SCH (09:00)
[2020-08-25] MEDS: Dicyclomine 10 MG CAP PO SCH (09:00)
[2020-08-25] MEDS: Clopidogrel Bisulfate 75 MG TAB PO SCH (09:00)
[2020-08-25] MEDS: clonazePAM 1 MG TAB PO SCH ×2 (09:00→20:05)
[2020-08-25] MEDS: Polyethylene Glycol 3350 17 GM Packet PO SCH ×2 (09:00→20:06)
[2020-08-25] MEDS: Docusate 100 MG CAP PO SCH ×2 (09:00→20:05)
[2020-08-25] MEDS: cloNIDine 0.1 MG TAB PO SCH ×3 (09:00→20:05)
[2020-08-25] MEDS ORDERED: Bisacodyl 10 MG SUPP PR SCH (16:45)
[2020-08-25] MEDS: Amiodarone 200 MG TAB PO SCH (20:05)
[2020-08-25] MEDS: Atorvastatin Calcium 40 MG TAB PO SCH (20:05)
[2020-08-25] MEDS: Temazepam 15 MG CAP PO SCH (20:06)
[2020-08-25] MEDS: traMADol HCl 50 MG TAB PO PRN (20:06)
[2020-08-26] MEDS: Ketorolac Tromethamine 30 MG/ML VIAL IVP SCH ×4 (00:01→18:07)
[2020-08-26] MEDS: Levothyroxine Sodium 100 MCG TAB PO SCH (05:11)
[2020-08-26] MEDS ORDERED: Iopamidol 370 76% 100 ML VIAL ONE (09:07)
[2020-08-26] MEDS: cloNIDine 0.1 MG TAB PO SCH ×2 (09:23→15:16)
[2020-08-26] MEDS: Clopidogrel Bisulfate 75 MG TAB PO SCH (09:23)
[2020-08-26] MEDS: Aspirin 81 mg Enteric Coated Tablet PO SCH (09:27)
[2020-08-26] MEDS: clonazePAM 1 MG TAB PO SCH (09:27)
[2020-08-26] MEDS: Pantoprazole 40 MG VIAL IVP SCH (09:28)
[2020-08-26] MEDS: Docusate 100 MG CAP PO SCH (09:28)
[2020-08-26] MEDS: Polyethylene Glycol 3350 17 GM Packet PO SCH ×2 (09:28→15:16)
[2020-08-26] MEDS: Dicyclomine 10 MG CAP PO SCH (09:30)
[2020-08-26] MEDS: traMADol HCl 50 MG TAB PO PRN ×2 (10:09→18:11)
[2020-08-26 14:46] LABS: EliA Celiac New Method **** NEW METHOD ****; t-Transglutaminase (tTG) IgA 0.4 EliAU/mL (<7 Negative)
[2020-08-26 15:19] VITALS: BP 104/58; TEMP 98.3
== END 2020-08-26 19:02 | disposition home or self-care (01) | DRG 392 ==
LOC: ERS 21:03 → ERHOLD 22:43 → 2NO 08-23 05:28 → OBSVTOIN 08-24 15:46
PROVIDERS: ADMIT Internal Medicine; ATTEND Hospitalist
PROC: 0DB78ZX Excision of Stomach, Pylorus, Via Natural or Artificial Opening Endoscopic, Diagnostic (ICD-10-PCS; principal; 2020-08-24)
PROC: 0DB98ZX Excision of Duodenum, Via Natural or Artificial Opening Endoscopic, Diagnostic (ICD-10-PCS; 2020-08-24)
DX: K59.00 Constipation, unspecified (principal); I50.32 Chronic diastolic (congestive) heart failure; Z66 Do not resuscitate; Z20.822 Contact with and (suspected) exposure to COVID-19; I48.91 Unspecified atrial fibrillation; I11.0 Hypertensive heart disease with heart failure; E78.5 Hyperlipidemia, unspecified; E03.9 Hypothyroidism, unspecified; E87.6 Hypokalemia; R00.0 Tachycardia, unspecified; D72.829 Elevated white blood cell count, unspecified; F31.9 Bipolar disorder, unspecified; I95.9 Hypotension, unspecified; D50.9 Iron deficiency anemia, unspecified; K31.7 Polyp of stomach and duodenum; Z88.1 Allergy status to other antibiotic agents; Z88.2 Allergy status to sulfonamides; Z79.82 Long term (current) use of aspirin; Z79.02 Long term (current) use of antithrombotics/antiplatelets; Z79.01 Long term (current) use of anticoagulants; Z95.5 Presence of coronary angioplasty implant and graft; Z95.0 Presence of cardiac pacemaker; Z90.49 Acquired absence of other specified parts of digestive tract; Z83.3 Family history of diabetes mellitus; Z88.8 Allergy status to other drugs, medicaments and biological substances; Z91.09 Other allergy status, other than to drugs and biological substances; Z79.899 Other long term (current) drug therapy; Z87.440 Personal history of urinary (tract) infections
CPT/HCPCS: 0240U; 36415; 51701; 71045; 71275; 74174; 74177; 74178; 78264; 80048; 80053; 81003; 81015; 83516; 83605; 83690; 83880; 84484; 85025; 87635; 88305; 93005; 96365; 96374; 96375; 96376; A9541; C9113; G0378; J1885; J2270; J2405; J2550; J2704; J2765; J3010; Q9967; U0003; U0005

== ENCOUNTER 2021-01-18 15:01 | Outpatient (CLI) | payer MEDICARE, MEDICAID | END 2021-01-18 15:02 | disposition home or self-care (01) | LOC: TBSIIMAG 15:01 | PROVIDERS: ATTEND Neurological Surgery | DX: S32.019A Unspecified fracture of first lumbar vertebra, initial encounter for closed fracture (principal) | CPT/HCPCS: 72100 ==